=== PATIENT | female | born 1995 | race Caucasian/White ===

== ENCOUNTER 2022-11-30 07:52 | Outpatient (CLI) | payer OTHER, SELFPAY ==
[2022-11-30] MEDS: RHO(D) IMMUNE GLOBULIN 300 MCG/2 ML SYRINGE IM (17:32)
== END 2022-11-30 07:53 | disposition home or self-care (01) ==
LOC: ANHLAB 07:56
PROVIDERS: Visit Provider Obstetrics & Gynecology
DX: Z36.89 Encounter for other specified antenatal screening (principal); O36.0130 Maternal care for anti-D [Rh] antibodies, third trimester, not applicable or unspecified; Z3A.00 Weeks of gestation of pregnancy not specified
CPT/HCPCS: 36415; 85461; 86850; 86900; 86901; 90384; 96372; J2790

== ENCOUNTER 2023-01-19 10:06 | Outpatient (CLI) | payer OTHER, SELFPAY ==
[2023-01-19 10:46] VITALS: BP 144/85; PULSE 86
[2023-01-19 11:01] VITALS: BP 151/95; PULSE 94
[2023-01-19 11:07] LABS: Basophils Percent Auto 0.1 % (0.2-1.2); Eosinophils Absolute Auto 0.1 K/mm3 (0-0.3); Eosinophils Percent Auto 0.8 % (0-4.4); Hematocrit 31.8 % (37.0-47.0); Hemoglobin 10.5 g/dL (12.0-15.0); Immature Granulocyte Absolute 0.13 K/mm3 (0.00-0.031); Immature Granulocyte Percent A 0.9 % (0-0.5); Lymphocytes Absolute Auto 1.98 K/mm3 (0.9-3.2); Lymphocytes Percent Auto 14.2 % (18.3-44.2); Mean Corpuscular Hemoglobin 31.5 pg (26-34); Mean Corpuscular Volume 95.5 fl (80-100); Mean Platelet Volume 10.3 fl (7.4-10.4); Monocytes Absolute Auto 0.6 K/mm3 (0.1-0.6); Monocytes Percent Auto 4.3 % (2.6-8.5); Neutrophils Absolute Auto 11.1 K/mm3 (1.3-6.7); Neutrophils Percent Auto 79.7 % (45.5-73.1); Platelet Count Result 280 k/mm3 (150-375); Red Blood Count 3.33 M/mm3 (4.2-5.4); Red Cell Distribution Width 13.2 % (11.5-14.5); White Blood Count 13.9 K/mm3 (4.5-10.0)
[2023-01-19 11:09] VITALS: PULSE 84
[2023-01-19 11:16] VITALS: BP 130/64; PULSE 84
[2023-01-19 11:17] LABS: Creatinine Urine 129.6 mg/dL; Total Protein Urine Random 35 mg/dL; Ur Ttl Prot Creatinine Ratio 0.27 mg/mg (0-0.20)
[2023-01-19 11:23] LABS: Appearance Urine Cloudy (Clear); Bacteria Urine 4+ /hpf; Bilirubin Urine Negative (Negative); Blood Urine Negative (Negative); Color Urine Yellow (Yellow); Glucose Urine UA Negative (Negative); Ketones Urine Negative (Negative); Leukocyte Esterase Ur 3+ LEU/UL (NEGATIVE); Need Manual Microscopic Reviewed; Nitrate Urine Negative (Negative); Protein Urine 1+ mg/dL (Negative); RBC Urine 0-2 /hpf (0-2); Squamous Epithelial Cell Urine Moderate /hpf (Few); WBC Urine 51-100 /hpf (0-3)
[2023-01-19 11:25] LABS: Add Urine Microscopic? YES
[2023-01-19 11:28] LABS: Alanine Aminotransferase 28 U/L (6-35); Albumin Level 3.9 g/dL (3.5-5.1); Alkaline Phosphatase 180 U/L (38-126); Anion Gap 8 mmol/L (8-16); Aspartate Amino Transferase 24 U/L (14-36); Bilirubin,Total 0.4 mg/dL (0.2-1.3); Blood Urea Nitrogen 8 mg/dL (7-17); Calcium 9.3 mg/dL (8.4-10.2); Carbon Dioxide 20 mmol/L (22-30); Chloride 108 mmol/L (98-107); Estimated Glomerular Filt Rate > 60; Glucose 81 mg/dL (65-110); Sodium 136 mmol/L (137-145); Uric Acid 6.3 mg/dL (2.5-7.5)
[2023-01-19 11:31] VITALS: BP 127/75; PULSE 83
[2023-01-19 11:46] VITALS: BP 141/80; PULSE 83
== END 2023-01-19 12:12 | disposition home or self-care (01) ==
LOC: ANHOBOP 10:13 → ANHOBPP 10:16
PROVIDERS: Visit Provider Advanced Practice Midwife
DX: O13.9 Gestational [pregnancy-induced] hypertension without significant proteinuria, unspecified trimester (principal); Z3A.00 Weeks of gestation of pregnancy not specified
CPT/HCPCS: 36415; 59025; 80053; 81001; 82570; 84156; 84550; 85025; 87086; 99199

== ENCOUNTER 2023-01-22 12:54 | Outpatient (CLI) | payer OTHER, SELFPAY ==
[2023-01-22 13:20] VITALS: BP 144/92; PULSE 106
[2023-01-22 13:31] VITALS: BP 143/82; PULSE 96
[2023-01-22 13:47] VITALS: BP 130/87; PULSE 97
[2023-01-22 13:55] LABS: Basophils Percent Auto 0.1 % (0.2-1.2); Eosinophils Absolute Auto 0.1 K/mm3 (0-0.3); Eosinophils Percent Auto 0.7 % (0-4.4); Hematocrit 32.6 % (37.0-47.0); Hemoglobin 10.8 g/dL (12.0-15.0); Immature Granulocyte Absolute 0.18 K/mm3 (0.00-0.031); Immature Granulocyte Percent A 1.3 % (0-0.5); Lymphocytes Absolute Auto 1.82 K/mm3 (0.9-3.2); Lymphocytes Percent Auto 13.2 % (18.3-44.2); Mean Corpuscular HGB Conc 33.1 g/dl (32-36); Mean Corpuscular Hemoglobin 31.9 pg (26-34); Mean Corpuscular Volume 96.2 fl (80-100); Mean Platelet Volume 10.2 fl (7.4-10.4); Monocytes Absolute Auto 0.6 K/mm3 (0.1-0.6); Monocytes Percent Auto 4.4 % (2.6-8.5); Neutrophils Percent Auto 80.3 % (45.5-73.1); Nucleated Red Blood Cells Perc 0.1 % (0.0-0.2); Platelet Count Result 295 k/mm3 (150-375); Red Blood Count 3.39 M/mm3 (4.2-5.4); Red Cell Distribution Width 13.2 % (11.5-14.5); White Blood Count 13.8 K/mm3 (4.5-10.0)
[2023-01-22 14:01] VITALS: BP 113/69; PULSE 92
[2023-01-22 14:02] VITALS: BP 143/82; PULSE 96
[2023-01-22 14:06] LABS: Alanine Aminotransferase 27 U/L (6-35); Albumin Level 3.9 g/dL (3.5-5.1); Alkaline Phosphatase 176 U/L (38-126); Anion Gap 8 mmol/L (8-16); Aspartate Amino Transferase 26 U/L (14-36); Bilirubin,Total 0.4 mg/dL (0.2-1.3); Blood Urea Nitrogen 7 mg/dL (7-17); Calcium 9.3 mg/dL (8.4-10.2); Carbon Dioxide 20 mmol/L (22-30); Chloride 107 mmol/L (98-107); Estimated Glomerular Filt Rate > 60; Glucose 95 mg/dL (65-110); Potassium 3.8 mmol/L (3.4-5.0); Sodium 135 mmol/L (137-145); Uric Acid 6.3 mg/dL (2.5-7.5)
[2023-01-22 14:13] LABS: Appearance Urine Turbid (Clear); Bacteria Urine 4+ /hpf; Bilirubin Urine Negative (Negative); Blood Urine Negative (Negative); Color Urine Yellow (Yellow); Glucose Urine UA Negative (Negative); Ketones Urine Trace mg/dL (Negative); Leukocyte Esterase Ur 3+ LEU/UL (NEGATIVE); Need Manual Microscopic Reviewed; Nitrate Urine Negative (Negative); Protein Urine 2+ mg/dL (Negative); RBC Urine 0-2 /hpf (0-2); Specific Grav Ur 1.018 (1.001-1.035); Squamous Epithelial Cell Urine Many /hpf (Few); WBC Urine >100 /hpf (0-3); pH Urine 6.5 (5.0-9.0)
[2023-01-22 14:14] LABS: Add Urine Microscopic? YES
[2023-01-22 15:04] LABS: Creatinine Urine 175.9 mg/dL; Total Protein Urine Random 144 mg/dL; Ur Ttl Prot Creatinine Ratio 0.82 mg/mg (0-0.20)
== END 2023-01-22 15:05 | disposition home or self-care (01) ==
LOC: ANHOBOP 12:59 → ANHLDR 13:02
PROVIDERS: Advanced Practice Midwife; Visit Provider Obstetrics & Gynecology
DX: O13.9 Gestational [pregnancy-induced] hypertension without significant proteinuria, unspecified trimester (principal); Z3A.00 Weeks of gestation of pregnancy not specified
CPT/HCPCS: 36415; 59025; 80053; 81001; 82570; 84156; 84550; 85025; 87086; 87088; 99199

== ENCOUNTER 2023-01-24 05:32 | Inpatient (IN) | payer OTHER, SELFPAY ==
[2023-01-24] VITALS (47 sets, daily range): BP systolic 130–185; BP diastolic 74–106; PULSE 64–111; RESP 14–18; TEMP 36.6–37.1; O2SAT 94–100; BMI 45.2
--- NOTE | 2023-01-24 06:25 | LDADM ---
This patient, Eladia Grimaldo, was admitted to Labor/Delivery/Recovery 120 on 01/24/23 at 05:32. Plans for labor, pain management and were discussed with patient. Patient/family oriented to hospital policies and general routines including ID bracelet, bed and alarms, visiting hours, pain management, procedures, bathroom and other care routines, personal items, smoking policy, room service/diet and guest tray routines, security routines, and visiting hours. Patient/Family are encouraged to report perceived risks to care and to ask questions if they do not understand what they are told or what they should do. See OBIX for further documentation.
--- NOTE | 2023-01-24 06:42 | WPDANESEPPF ---
Anes - Initial Pre Proc Eval Procedure: Operation Date: 01/24/23 07:30 Proposed Procedures p Section - Viviane Gillis MD Date/Time: 01/24/23 06:42 Surgeon: Viviane Gillis MD Pre Op Diagnosis: Primary Patient Data Age: 27 Gender: F Height: 1.7 m Weight: 131 kg Last Vital Signs O2 Del Method Room Air 01/24/23 06:22 Allergies Allergy/AdvReac Type Severity Reaction Status Date / Time No Known Allergies Allergy Verified 01/19/23 11:47 Home Medications Medication Instructions Recorded Confirmed Type nifedipine 30 mg tablet,extended mg PO 01/19/23 History release 24 hr Patient hx anesthesia problems: none Family hx anesthesia problems: none Results Review: All pre-operative results and documents have been reviewed as part of the pre-operative evaluation. [facility] Past Medical History Medical History (Updated 01/24/23 @ 06:43 by Eugene Evans MD) HTN (hypertension) Morbid obesity Surgical History Surgical History (Updated 01/24/23 @ 06:43 by Eugene Evans MD) History of appendectomy Family History Family History Mother Hypertension Grandparent Diabetes mellitus Social History Social History Smoking status: Never smoker Substance use: never Lack of Transportation: No Lack of Food: Never True Current Housing: I Have Housing Concerned About Future Housing: No Difficulty Paying Gas/Electric Bills: No Difficulty Paying for Meds: No Currently Unemployed: No Education: Bachelor's Degree Difficulty w/ Childcare or Family Care: No Spiritual care concerns: No Anes - Eval Final PreProcedure Day of Procedure 01/24/23 06:42 Patient weight: morbidly obese Heart: regular rate and rhythm Lungs: clear to auscultation Airway: Mallampati scale class II Neurological: alert and oriented Last oral intake: >/= 8 hours ASA classification: III Emergent: no Anesthetic plan: proceed Anesthesia type and monitoring: regional spinal and standard monitoring Results Review: All pre-operative results and documents have been reviewed as part of the pre-operative evaluation. Informed Consent: The patient's anesthetic plan and its attendant risks and benefits were discussed with the patient/family/POA. Questions were solicited and answers provided to the satisfaction of the patient/family/POA.
[2023-01-24] MEDS: LACTATED RINGERS 1,000 ML 125 ML IV CONT ×2 (07:05→10:21)
--- NOTE | 2023-01-24 07:09 | PM.IMHP ---
H&P: HPI History of Present Illness Date/Time: 01/24/23 07:09 Chief Complaint: PreE, breech Narrative: Rachele is a 27yo G1 at 37.1 here for primary CS for breech, and PreEclampsia superimposed on chronic HTN. also complicated by morbid obesity, has had testing. 24 hour urine last week 315mg. Denies any PreE sx. On nifedipine throughout the . Review of Systems Review of Systems: All systems reviewed & are unremarkable except as noted in HPI and below [facility] Past Medical History Medical History (Updated 01/24/23 @ 07:14 by Viviane Gillis MD) HTN (hypertension) Morbid obesity Surgical History Surgical History (Updated 01/24/23 @ 06:43 by Eugene Evans MD) History of appendectomy Family History Family History Mother Hypertension Grandparent Diabetes mellitus Social History Social History Smoking status: Never smoker Substance use: never Lack of Transportation: No Lack of Food: Never True Current Housing: I Have Housing Concerned About Future Housing: No Difficulty Paying Gas/Electric Bills: No Difficulty Paying for Meds: No Currently Unemployed: No Education: Bachelor's Degree Difficulty w/ Childcare or Family Care: No Spiritual care concerns: No Meds Home Medications and Allergies Home Medications Medication Instructions Recorded Confirmed Type nifedipine 30 mg tablet,extended mg PO 01/19/23 History release 24 hr Allergies Allergy/AdvReac Type Severity Reaction Status Date / Time No Known Allergies Allergy Verified 01/19/23 11:47 Vital Signs Vital Signs - 24 hr 01/24/23 06:22 Oxygen Delivery Room Air Exam Const: General: no acute distress Resp: Effort & Inspection: normal respiratory effort Auscultation: clear to auscultation bilaterally Cardio: Rate: regular rate Rhythm: regular rhythm GI: GI Palp: Yes Soft to palpation Extrem: General: normal to inspection Assessment and Plan Assessment and plan (1) Pre-eclampsia superimposed on chronic hypertension: Code(s): O11.9 - Pre-existing hypertension with pre-eclampsia, unspecified trimester Status: Acute (2) Breech presentation: Code(s): O32.1XX0 - Maternal care for breech presentation, not applicable or unspecified Status: Acute Plan GBS pending mild PreE superimposed on cHTN continue nifedipine mag if severe features will proceed with CS for breech pt consented for CS, discussed RBA
--- NOTE | 2023-01-24 07:15 | WPDHPUPDATE1 ---
History and Physical Update Update Date/Time: 01/24/23 07:15 History and Physical has been reviewed, including an updated exam of the patient. There are NO changes in the patient's condition. Risks, benefits, and alternatives have been discussed and questions answered. Patient agrees to proceed with procedure.
[2023-01-24 07:17] LABS: Alanine Aminotransferase 22 U/L (6-35); Albumin Level 3.3 g/dL (3.5-5.1); Alkaline Phosphatase 144 U/L (38-126); Anion Gap 6 mmol/L (8-16); Aspartate Amino Transferase 27 U/L (14-36); Bilirubin,Total 0.5 mg/dL (0.2-1.3); Blood Urea Nitrogen 8 mg/dL (7-17); Calcium 7.9 mg/dL (8.4-10.2); Carbon Dioxide 17 mmol/L (22-30); Chloride 114 mmol/L (98-107); Estimated CRCL calculation 311 ml/min; Estimated Glomerular Filt Rate > 60; Glucose 75 mg/dL (65-110); Potassium 3.4 mmol/L (3.4-5.0); Sodium 137 mmol/L (137-145)
--- NOTE | 2023-01-24 07:21 | PC.NURSE ---
provider scanned patient breech presentation noted.,
[2023-01-24 07:56] LABS: HIV 1/2 Ab P24 Ag Result Negative (Negative)
--- NOTE | 2023-01-24 09:25 | P.PCNOB_ITS ---
OB - Delivery Note Procedure Delivery date: 01/24/23 Procedure: Procedures Operation Date: 01/24/23 07:30 <No data on this case meets the specified criteria> primary low transverse section Events: Breech Presentation, Chronic Hypertension and Preeclampsia w/o severe features Route of delivery: Specimen: Yes (placenta) Quantitative Blood Loss (ml): 1,085 Anesthesia type: CSE Disposition: Floor Complications: hemorrhage due to atony, difficult spinal placement Narrative: The patient was taken to the OR and had a CSE placed after spinal placement failed. She was placed in dorsal supine position with left lateral tilt. SCDs and link had been placed. She was prepped and draped in the normal sterile fashion. A Pfannensteil skin incision was made and carried through to the underlying layer of fascia. The fascia was incised in the midline and then extended laterally using Emerson scissors. The muscles were in the midline and the peritoneum was entered bluntly. The peritoneal incision was extended inferiorly and superiorly with care to avoid the bladder. The bladder blade was then inserted, the vesicouterine peritoneum was grasped, incised with Metzenbaum scissors, and a bladder flap created. The bladder blade was reinserted. A low transverse uterine incision was made with a scalpel and extended bluntly. AROM was performed and fluid was noted to be clear. The baby was delivered in breech presentation in normal fashion without complication. The baby's oropharynx was suctioned. After 30 seconds, the cord was clamped and cut and the was handed off. Cord blood was obtained and the placenta was then removed manually. The uterus was exteriorized. A moist lap sponge was used to curette the endometrium. The uterine incision was then closed with one layer of 0-Vicryl in a running, locking fashion. Uterine tone was very poor for about 5 minutes and pitocin, hemabate, and tranexamic acid were given. Good hemostasis was noted at the incision and the atony resolved. The posterior cul de sac was irrigated with normal saline and cleared of all clot and debris. The uterus was returned to the abdomen. Both lateral gutters were then irrigated. The rectus muscles were inspected and found to be hemostatic. The fascia was reapproximated using 0-Vicryl in running fashion. The subcutaneous tissue was irrigated with normal saline and made hemostatic with Bovie electrocautery. The subcutaneous tissue was reapproximated with a layer of running 2-0 plain gut. The skin was then closed with absorbable zackery. Steri strips and a bandage were applied. The uterus was evacuated. The patient tolerated the procedure well. All counts were correct. She was taken to the recovery room in good condition. [place] Baby Date of : 01/24/23 Time of : 08:38 Weeks of gestation at delivery: 37 Infant gender: Female Weight (pounds): 7 Weight (ounces): 8 presentation: breech Placenta delivery description: Manual Removal Cord Vessel Description: 3 Vessels and Delayed Cord Clamping score one minute: 9 score five minutes: 9
[2023-01-24] MEDS: ceFAZolin 3 GM/D5W 100 ML 100 ML IVPB (10:19)
--- NOTE | 2023-01-24 10:51 | PC.NURSE ---
FHT in OR were 130
[2023-01-24 11:20] LABS: Hemoglobin 10.5 g/dL (12.0-15.0)
--- NOTE | 2023-01-24 11:30 | OBPPTRN ---
Addendum entered by Martin Williamson RN 01/24/23 14:58: actual time of arrival on unit is 1145 Original Note: Patient transferred to post room # [id number] via stretcher accompanied by fob and . PT transferred to bed via maxi air without difficulty. PT introductions made and plan of care discussed per post op c section, pain management, breast feeding, daily care activities. PT received such instructions per one to one discussion, mom baby care guide and demonstrations this shift. PT and fob both recipients of such instructions and no barriers to learning identified at this time. Oriented to unit, room, information board, rooming in, admission packet and security measures. Patient verbalizes understanding.
--- NOTE | 2023-01-24 14:57 | PC.NURSE ---
[id number] Introductions were made, then consulted with patient to assess needs related to . Mother led the conversation with her?plans to feed?her infant and the?experience so far. Resources provided for inpatient and outpatient services with the feeding sheet, mom/baby guide and name written on the white board. Mother voiced understanding of information and parents request assistance. Mother works well with her with encouragement and education. Encouraged understanding of the benefits of skin to skin (demonstrating unwrapping and placing upright on her chest), stimulating with massage touch, changing positions to encourage wakefulness, how to watch for early feeding cues, responsive feeding, feeding on demand (aiming for 8-12 times in 24 hours, about every 2-3 hours), milk production,hand expression (did not yield colostrum at this time) building/maintaining a milk supply (discussed QBL & primary C/S possibly delaying milk supply), duration of feeding, signs of adequate intake/output and how to record on the feeding sheet. Practiced skin to skin until demonstrated feeding cues. Reviewed positioning and ear, shoulder, hip alignment, supporting the breast to facilitate a deep latch, asymmetrical latch (off-center), leading with the chin with a big, open, wide gape and body close to mother. attempted to latched optimally to the right breast in football laid-back position. opens wide but doesn't maintain. Assisted mother with an appropriate hold to support her breast that did not make the nipple invert. There is swelling in the breast as well. was unable to maintain latch. Discussed protecting mother milk supply with hand expression and pumping. Nipple care reviewed with optimal latch and good positioning. Discussed late of 37 weeks and feeding behaviors of a weak suck to maintain latch. We discussed pumping and/or possibly using a nipple shield. Reviewed good handwashing when or touching the breast/nipples to prevent infection. Resources used to facilitate learning were used with the visual handouts, tool, mom and baby guide. Parents voiced understanding of skin to skin, stimulating with massage touch, responsive feedings, hand expressed colostrum, talking to to encourage if it has been 2 -2.5 hours since the start of the last , to call if does not latch, or if there is discomfort with . Resources provided for inpatient/outpatient with feeding sheet, name on the white board and the mom/baby guide. Parents voiced understanding of information, demonstrated learning and will call if there is a request for assistance. Mother consented to initiating pumping. Reported to the primary RN. [phone] Breast pump provided due to ineffective . Instructions given on cleaning, care, usage, that there should be no pain, pumping schedule for milk production, collection, and storage of human milk. Parents are encouraged to record pumping schedule on the feeding sheet. Patient was assessed for correct placement, flange size, to pump for comfort and nipple stretching/stimulation for adequate milk production every 3 hours (8 times in 24 hours) 1-2 times at night. Parents voiced understanding of the education shared along with mom and baby guide for additional resource information. Reported to the primary RN.
[2023-01-24] MEDS: IBUPROFEN 600 MG TABLET PO ×2 (16:42→22:47)
[2023-01-24] MEDS: SIMETHICONE 80 MG TAB.CHEW PO (16:43)
[2023-01-24] MEDS: HYDROcodone/acetaminophen (*CRX) 5-325 MG TABLET 1 TAB PO ×3 (16:43→22:46)
[2023-01-24] MEDS: DOCUSATE SODIUM 100 MG CAPSULE PO (16:44)
[2023-01-24] MEDS: LANOLIN (LANSINOH) 7.5 GM CREAM 1 APPLIC TOPICAL (16:45)
[2023-01-24] MEDS: DEXTROSE 5%/0.45% SOD CHL 1,000 ML 125 ML IV CONT (17:00)
[2023-01-24] MEDS: IRON SUCROSE COMPLEX 200 MG in SODIUM CHLORIDE 0.9% IV 50 ML 120 MG IVPB (18:40)
[2023-01-24] MEDS: NIFEdipine 30 MG TAB.ER.24 PO (20:50)
[2023-01-24] MEDS: LABETALOL HCL INJ 100 MG/20 ML VIAL 20 MG IV PUSH (20:50)
[2023-01-25] VITALS (9 sets, daily range): BP systolic 119–197; BP diastolic 69–98; PULSE 88–109; RESP 16–20; TEMP 36.4–36.8; O2SAT 97–99
[2023-01-25] MEDS: HYDROcodone/acetaminophen (*CRX) 5-325 MG TABLET 1 TAB PO ×4 (04:11→20:16)
[2023-01-25] MEDS: IBUPROFEN 600 MG TABLET PO ×3 (04:25→20:16)
[2023-01-25] MEDS: LABETALOL HCL INJ 100 MG/20 ML VIAL 20 MG IV PUSH (04:56)
[2023-01-25] MEDS: LACTATED RINGERS 1,000 ML 75 ML IV CONT (05:00)
[2023-01-25] MEDS: MAGNESIUM SULF 4 GM/WATER100ML 4 GM/100 ML BAG IVPB (05:03)
[2023-01-25] MEDS: MAGNESIUM SULF 20GM/WATER500ML 500 ML 50 MG IV CONT ×2 (05:33→14:15)
[2023-01-25 05:42] LABS: Basophils Percent Auto 0.1 % (0.2-1.2); Eosinophils Absolute Auto 0.1 K/mm3 (0-0.3); Eosinophils Percent Auto 0.7 % (0-4.4); Hematocrit 27.2 % (37.0-47.0); Hemoglobin 8.7 g/dL (12.0-15.0); Immature Granulocyte Absolute 0.12 K/mm3 (0.00-0.031); Immature Granulocyte Percent A 0.8 % (0-0.5); Lymphocytes Absolute Auto 2.28 K/mm3 (0.9-3.2); Lymphocytes Percent Auto 15.4 % (18.3-44.2); Mean Corpuscular Hemoglobin 31.6 pg (26-34); Mean Corpuscular Volume 98.9 fl (80-100); Mean Platelet Volume 10.6 fl (7.4-10.4); Monocytes Absolute Auto 0.8 K/mm3 (0.1-0.6); Monocytes Percent Auto 5.1 % (2.6-8.5); Neutrophils Absolute Auto 11.6 K/mm3 (1.3-6.7); Neutrophils Percent Auto 77.9 % (45.5-73.1); Platelet Count Result 249 k/mm3 (150-375); Red Blood Count 2.75 M/mm3 (4.2-5.4); Red Cell Distribution Width 13.2 % (11.5-14.5); White Blood Count 14.8 K/mm3 (4.5-10.0)
[2023-01-25] MEDS: MULTIVIT/MIN/PREN/FOL AC/IRON TABLET 1 TAB PO (07:56)
[2023-01-25] MEDS: SIMETHICONE 80 MG TAB.CHEW PO ×3 (07:56→20:23)
[2023-01-25] MEDS: DOCUSATE SODIUM 100 MG CAPSULE PO ×2 (07:56→20:19)
--- NOTE | 2023-01-25 08:00 | PC.NURSE ---
PT introductions made and plan of care discussed per post op c section, pain management, breast feeding, daily care activities PIH symptoms and Magnesium drip. PT received such instructions per one to one discussion, mom baby care guide and demonstrations this shift. PT and fob both recipients of such instructions and no barriers to learning identified at this time. Patient verbalizes understanding.
--- NOTE | 2023-01-25 08:13 | PM.OBPNVD ---
OB - PN: Subj Subjective Date/time seen: 01/25/23 08:13No complaints, denies headache, blurry vision, epigastric pain, no vaginal bleeding, has not walked yet, does not report dizziness or shortness of breath. OB - PN: Obj Data Labs 01/25/23 04:15 01/24/23 06:35 Labs: Laboratory Results - last 24 hr 01/24/23 01/24/23 01/25/23 10:58 10:58 04:15 WBC RBC Hgb 10.5 L Hct 32.0 L MCV MCH MCHC RDW Plt Count MPV Immature Gran % (Auto) Neut % (Auto) Lymph % (Auto) [place] % (Auto) Eos % (Auto) Baso % (Auto) Lymph # (Auto) [place] # (Auto) Eos # (Auto) Baso # (Auto) Abs Immat Gran (auto) Absolute Neuts (auto) Absolute Nucleated RBC Nucleated RBC % Blood Type A Negative A Negative Antibody Screen Negative Negative Screen Negative Baby's Blood Type A pos Baby's BUBBA Negative Doses of RhIg Required 1 01/25/23 04:15 WBC 14.8 H RBC 2.75 L Hgb 8.7 L Hct 27.2 L MCV 98.9 MCH 31.6 MCHC 32.0 RDW 13.2 Plt Count 249 MPV 10.6 H Immature Gran % (Auto) 0.8 H Neut % (Auto) 77.9 H Lymph % (Auto) 15.4 L [place] % (Auto) 5.1 Eos % (Auto) 0.7 Baso % (Auto) 0.1 L Lymph # (Auto) 2.28 [place] # (Auto) 0.8 H Eos # (Auto) 0.1 Baso # (Auto) 0.0 Abs Immat Gran (auto) 0.12 H Absolute Neuts (auto) 11.6 H Absolute Nucleated RBC 0.0 Nucleated RBC % 0.0 Blood Type Antibody Screen Screen Baby's Blood Type Baby's BUBBA Doses of RhIg Required OB - PN A/P Assessment and Plan (1) Pre-eclampsia superimposed on chronic hypertension: Code(s): O11.9 - Pre-existing hypertension with pre-eclampsia, unspecified trimester Status: Acute (2) Breech presentation: Code(s): O32.1XX0 - Maternal care for breech presentation, not applicable or unspecified Status: Acute (3) delivery delivered: Code(s): O82 - Encounter for delivery without indication Status: Acute Plan 27-year-old female who is postop day 1 from a delivery for breech. She had preeclampsia. It was worsening last night. Magnesium sulfate was started, blood pressures have improved on magnesium sulfate and Procardia. Will check CMP this morning, the baby is well. Bleeding is minimal, has not ambulated. No resting dizziness or shortness of breath there Time Spent With Patient Time: Total time spent is greater than 50% in coordination of care (as documented) at patient's floor/unit and/or counseling patient: Exam Const: General: healthy appearing, comfortable and no acute distress Resp: Auscultation: clear to auscultation bilaterally, no rales, no rhonchi and no wheezes Cardio: Rate: regular rate Heart sounds: no click, no murmurs and no rubs GI: Inspection: non-distended Auscultation: normal bowel sounds Extrem: General: normal to inspection, no pedal edema and no calf tenderness
--- NOTE | 2023-01-25 08:16 | WPDANLDPN2 ---
Anes-Prog Note L&D Date/Time: 01/25/23 08:16 Comfortable throughout: section Neuraxial method: spinal Epidural/Spinal procedure site: clean & non-tender Neuro status: Neuro function grossly intact. Cardiovascular status: normal Respiratory status: normal Airway patency: baseline Mental status: baseline Post-Op hydration status: normal Vital Signs: Last Vital Signs Temp 36.8 C 01/25/23 04:15 Pulse 88 01/25/23 05:06 Resp 20 01/25/23 04:15 BP 119/69 01/25/23 05:06 Pulse Ox 100 01/24/23 16:43 O2 Del Method Room Air 01/24/23 16:43 Pain score (VAS): 1 I/O: Intake & Output 01/24/23 01/25/23 01/25/23 23:59 07:59 15:59 Intake Total 1100 2100 Output Total 1500 1000 Balance -400 1100 Post-procedural complaints: none Patient feedback: Patient satisfied with anesthetic care.
--- NOTE | 2023-01-25 08:16 | WPDANLDNPN2 ---
Anes-Prog Note L&D-Neuraxial Date/Time: 01/25/23 08:16 Neuraxial medications: intrathecal PF morphine Opiod-related complaints: none Patient feedback: Patient satisfied with post-operative pain management.
[2023-01-25] MEDS: POLYSACCHARIDE IRON COMPLEX 150 MG CAPSULE (09:29)
[2023-01-25] MEDS: NIFEdipine 30 MG TAB.ER.24 PO ×2 (09:30→20:16)
[2023-01-25 10:10] LABS: Alanine Aminotransferase 22 U/L (6-35); Albumin Level 3.3 g/dL (3.5-5.1); Alkaline Phosphatase 143 U/L (38-126); Anion Gap 8 mmol/L (8-16); Aspartate Amino Transferase 25 U/L (14-36); Bilirubin,Total 0.3 mg/dL (0.2-1.3); Blood Urea Nitrogen 5 mg/dL (7-17); Calcium 8.3 mg/dL (8.4-10.2); Carbon Dioxide 21 mmol/L (22-30); Chloride 107 mmol/L (98-107); Estimated CRCL calculation 201 ml/min; Estimated Glomerular Filt Rate > 60; Glucose 121 mg/dL (65-110); Potassium 4.1 mmol/L (3.4-5.0); Sodium 136 mmol/L (137-145)
[2023-01-25] MEDS: RHO(D) IMMUNE GLOBULIN 300 MCG/2 ML SYRINGE IM (15:00)
--- NOTE | 2023-01-25 16:09 | PC.NURSE ---
[id number] Purposefully rounded to assess needs. Parents discussed how their night had gone and the new feeding plan. They are confident with their plan and questions were discussed and answered. Mother is attempting to breastfeed and father of baby states that the infant is doing better today than yesterday. We reviewed paced bottle feeding and protecting the milk supply with stimulation 8-12 times in 24 hours with 1-2 times at night. Parents voiced understanding and acknowledges how and when to call for assistance.
[2023-01-26] VITALS (7 sets, daily range): BP systolic 125–160; BP diastolic 74–93; PULSE 98–109; RESP 16–18; TEMP 36.6–36.8; O2SAT 98–100
[2023-01-26] MEDS: HYDROcodone/acetaminophen (*CRX) 5-325 MG TABLET 1 TAB PO ×3 (04:21→13:00)
[2023-01-26] MEDS: SIMETHICONE 80 MG TAB.CHEW PO ×4 (04:21→18:00)
[2023-01-26] MEDS: IBUPROFEN 600 MG TABLET PO ×3 (04:21→22:56)
--- NOTE | 2023-01-26 08:14 | PM.OBPNVD ---
OB - PN: Subj Subjective Date/time seen: 01/26/23 08:14 Patient comments: no complaints and pain well controlled feeding status: breast and bottle feeding OB - PN: Obj Data Labs 01/25/23 04:15 01/25/23 09:42 Labs: Laboratory Results - last 24 hr 01/25/23 01/25/23 04:15 09:42 Sodium 136 L Potassium 4.1 Chloride 107 Carbon Dioxide 21 L Anion Gap 8 BUN 5 L Creatinine 0.50 L Estim Creat Clear Calc 201 Estimated GFR > 60 Glucose 121 H Calcium 8.3 L Total Bilirubin 0.3 AST 25 ALT 22 Alkaline Phosphatase 143 H Total Protein 7.0 Albumin 3.3 L Blood Type A Negative Antibody Screen Negative Screen Negative Baby's Blood Type A pos Baby's BUBBA Negative Doses of RhIg Required 1 OB - PN A/P Plan day: 2 Comments: s/p mag, BPs improved and great diuresis anemia, getting venofer bandage removed and incision cdi likely stay til POD 4 Time Spent With Patient Time: Total time spent is greater than 50% in coordination of care (as documented) at patient's floor/unit and/or counseling patient: Exam Narrative: NAD abdomen soft, appropriately tender, incision CDI Extremities nontender with 1+ edema
[2023-01-26] MEDS: MULTIVIT/MIN/PREN/FOL AC/IRON TABLET 1 TAB PO (08:53)
[2023-01-26] MEDS: DOCUSATE SODIUM 100 MG CAPSULE PO ×2 (08:53→17:59)
[2023-01-26] MEDS: NIFEdipine 30 MG TAB.ER.24 PO ×2 (08:54→21:02)
[2023-01-26] MEDS: IRON SUCROSE COMPLEX 200 MG in SODIUM CHLORIDE 0.9% IV 50 ML 120 MG IVPB (09:27)
[2023-01-27 05:18] VITALS: BP 144/91
[2023-01-27] MEDS: MULTIVIT/MIN/PREN/FOL AC/IRON TABLET 1 TAB PO (07:39)
[2023-01-27 07:40] VITALS: BP 138/74; PULSE 96; RESP 18; TEMP 37.2; O2SAT 99
[2023-01-27] MEDS: DOCUSATE SODIUM 100 MG CAPSULE PO (07:40)
[2023-01-27] MEDS: IBUPROFEN 600 MG TABLET PO (07:40)
[2023-01-27] MEDS: NIFEdipine 30 MG TAB.ER.24 PO (08:59)
--- NOTE | 2023-01-27 10:22 | PM.OBPNVD ---
OB - PN: Subj Subjective Date/time seen: 01/27/23 10:22 Patient comments: no complaints, pain well controlled, incisional pain, tolerating diet and flatus present OB - PN: Obj Data Labs 01/25/23 04:15 01/25/23 09:42 Labs: Laboratory Results - last 24 hr 01/25/23 04:15 Blood Type A Negative Antibody Screen Negative Screen Negative Baby's Blood Type A pos Baby's BUBBA Negative Doses of RhIg Required 1 OB - PN A/P Plan day: 3 Plan: routine care, discharge home and other Comments: Incision check in one week. Given precautions Time Spent With Patient Time: Total time spent is greater than 50% in coordination of care (as documented) at patient's floor/unit and/or counseling patient: Exam Const: General: comfortable, no acute distress and alert Resp: Effort & Inspection: normal respiratory effort Auscultation: no crackles, no rales and no rhonchi Cardio: Rate: regular rate Heart sounds: no click, no murmurs and no rubs GI: Inspection: non-distended GI Palp: No Tenderness to palpation present (GI) Auscultation: normal bowel sounds Other: Incision - CDI Extrem: General: normal to inspection, no pedal edema and no calf tenderness
--- NOTE | 2023-01-27 10:23 | PM.OBDSVD ---
DS: Admitting Diagnosis Discharge Date 01/27/2023 Admitting Diagnosis term DS: Discharge Diagnosis Discharge Diagnosis (1) delivery delivered: Code(s): O82 - Encounter for delivery without indication Status: Acute (2) Pre-eclampsia superimposed on chronic hypertension: Code(s): O11.9 - Pre-existing hypertension with pre-eclampsia, unspecified trimester Status: Acute OB - DS: Summary OB Procedures : None OB Procedures Intrapartum: OB Procedures: : None Peripartum Data Procedures: Procedures Operation Date: 01/24/23 07:30 Actual Procedure Side Surgeon p Section Bilateral Viviane Gillis MD Time Spent with Patient Time attestation: Total time spent providing and/or coordinating discharge services: DS: Data Data Completed and Pending Completed studies during hospitalization: Pending at discharge 01/24/23 10:17 Surgical [PTH] Routine Labs on day of discharge: Labs from last 24 hours 01/25/23 04:15 Blood Type A Negative Antibody Screen Negative Screen Negative Baby's Blood Type A pos Baby's BUBBA Negative Doses of RhIg Required 1 Discharge Plan Discharge Discharging Clinician: Karin Hatch Patient Disposition: Home, Self-Care Activity: pelvic rest Diet: regular Patient Instructions: Antibiotic Form Stand Alone Forms: General Discharge Information Follow-up/Referrals: Karin Hatch MD [Physician] - Discharge Medications: New hydrocodone-acetaminophen 5-325 mg tablet 1 tablet PO Q4H PRN (Reason: pain) Qty: 25 0RF Continued nifedipine 30 mg tablet extended release 24hr PO Date of admission: 01/24/23 05:32 Primary Care Provider: UNKNOWN,DOCTOR Admitting Provider: Viviane Gillis Attending physician on admission: Viviane Gillis Condition: Stable
[2023-01-29 10:38] VITALS: BP 144/82; PULSE 103; RESP 20; TEMP 36.8; O2SAT 100
== END 2023-01-27 15:07 | disposition home or self-care (01) | DRG 788 ==
LOC: ANHLDR 05:43 → ANHOB2 01-25 11:36 → ANHLDR 01-29 10:57 → ANHOB2 01-29 10:57
PROVIDERS: Admitting Provider Obstetrics & Gynecology; Visit Provider Obstetrics & Gynecology
PROC: 10D00Z1 Extraction of Products of Conception, Low, Open Approach (ICD-10-PCS; CPT 59514; principal; 2023-01-24 07:30)
DX: O11.4 Pre-existing hypertension with pre-eclampsia, complicating childbirth (principal); Z37.0 Single live birth; Z3A.37 37 weeks gestation of pregnancy; O32.1XX0 Maternal care for breech presentation, not applicable or unspecified; O72.1 Other immediate postpartum hemorrhage
CPT/HCPCS: 36415; 80053; 85014; 85018; 85025; 85461; 86703; 86850; 86900; 86901; 88307; 90384; A9270; G0432; J0131; J0690; J1756; J2274; J2370; J2405; J2590; J2704; J2790; J3475; J7120

== ENCOUNTER 2023-08-14 07:48 | Outpatient (CLI) | payer OTHER, SELFPAY ==
[2023-08-14 08:19] LABS: Basophils Percent Auto 0.2 % (0.2-1.2); Eosinophils Absolute Auto 0.3 K/mm3 (0-0.3); Eosinophils Percent Auto 2.3 % (0-4.4); Hemoglobin 12.2 g/dL (12.0-15.0); Immature Granulocyte Absolute 0.06 K/mm3 (0.00-0.031); Immature Granulocyte Percent A 0.5 % (0-0.5); Lymphocytes Percent Auto 16.8 % (18.3-44.2); Mean Corpuscular HGB Conc 31.3 g/dl (32-36); Mean Corpuscular Hemoglobin 29.3 pg (26-34); Mean Corpuscular Volume 93.8 fl (80-100); Mean Platelet Volume 9.2 fl (7.4-10.4); Monocytes Absolute Auto 0.4 K/mm3 (0.1-0.6); Monocytes Percent Auto 3.4 % (2.6-8.5); Neutrophils Absolute Auto 8.7 K/mm3 (1.3-6.7); Neutrophils Percent Auto 76.8 % (45.5-73.1); Platelet Count Result 347 k/mm3 (150-375); Red Blood Count 4.16 M/mm3 (4.2-5.4); White Blood Count 11.3 K/mm3 (4.5-10.0)
== END 2023-08-14 07:49 | disposition home or self-care (01) ==
LOC: ANHLAB 07:50
PROVIDERS: Visit Provider Internal Medicine
DX: D72.829 Elevated white blood cell count, unspecified (principal)
CPT/HCPCS: 36415; 85025

== ENCOUNTER 2025-08-12 18:51 | Observation (INO) | payer OTHER, SELFPAY ==
--- NOTE | ~2025-08-12 | CT_ITS ---
CT ABDOMEN AND PELVIS WITHOUT CONTRAST Clinical History: Right ureteral stone Comparison: CT 2 days prior Technique: Unenhanced axial images lung bases to symphysis pubis Coronal, sagittal reformats CT images acquired with automatic exposure control for dose reduction DLP: 614 mGy-cm Findings: Without intravenous contrast, sensitivity for detecting visceral parenchymal abnormalities decreased. Lung bases: Clear. Visualized heart and pericardium: Unremarkable. Liver: Unremarkable. Gallbladder: Stones. Spleen: Unremarkable. Pancreas: Unremarkable. Adrenal glands: Unremarkable. Kidneys: Right kidney- improving hydronephrosis. Perinephric stranding. No renal stones. Left kidney- No hydronephrosis. No renal stones. Distal esophagus/stomach: Unremarkable. Small bowel loops: Normal caliber and wall thickness. Colon: Normal caliber and wall thickness. Appendectomy. Nodes: No enlarged nodes. Small inguinal nodes. Peritoneum: No ascites. No free intraperitoneal air. Urinary bladder: Unremarkable. Right UVJ stone no longer present Uterus: Unremarkable. Adnexa: No masses. Bones: No acute bony abnormality. Soft tissues: Unremarkable. Unopacified abdominal aorta: No aneurysmal dilatation. IMPRESSION: 1. Small right UVJ stone no longer present. 2. Mild persistent hydronephrosis right kidney. 3. No other acute abnormality. Reviewed, dictated and finalized at location R.
--- NOTE | ~2025-08-12 | CT_ITS ---
CT abdomen pelvis wo con INDICATION:right flank pain, suspect stone . COMPARISON: None. TECHNIQUE: Axial 2.5 mm images of the abdomen were obtained without IV or oral contrast. Diagnostic sensitivity is limited due to lack of IV contrast. FINDINGS: The lung bases are clear. The liver parenchyma is unremarkable. No intrahepatic mass or ductal dilatation is evident. Multiple gallstones are noted. Follow-up ultrasound is recommended. The pancreas and spleen are normal in appearance. The adrenal glands are symmetric in size. There is mild right hydronephrosis secondary to a punctate stone at the ureterovesicular junction. No intrarenal stones are noted. Left kidneys unremarkable. Evaluation of the stomach and bowel loops are limited due to lack of oral contrast. The bladder and rectum are normal. No free intraperitoneal fluid or air is evident. Enlarged left inguinal lymph node measures up to 16.9 mm. Multiple small retroperitoneal lymph nodes are noted bilaterally measuring less than 5 mm. The aorta, visceral vessels and renal arteries demonstrate normal caliber. The lower thoracic and lumbar vertebrae are in normal alignment. IMPRESSION: Multiple gallstones are noted. Follow-up ultrasound is recommended. Enlarged left inguinal lymph node measures up to 16.9 mm. There is mild right hydronephrosis secondary to a punctate stone at the UVJ. All CT scans at this facility are performed using low dose modulation techniques as appropriate to perform exam including the following: automated exposure control; use of iterative reconstruction technique; adjustment of the mA and/or kV according to patient size (this includes techniques or standardized protocols for targeted exams where dose is matched to indication/reason for exam). Reviewed, dictated and finalized at location S. IMPRESSION: Multiple gallstones are noted. Follow-up ultrasound is recommended. Enlarged left inguinal lymph node measures up to 16.9 mm. There is mild right hydronephrosis secondary to a punctate stone at the UVJ. All CT scans at this facility are performed using low dose modulation techniqu es as appropriate to perform exam including the following: automated exposure c ontrol; use of iterative reconstruction technique; adjustment of the mA and/or kV according to patient size (this includes techniques or standardized protocol s for targeted exams where dose is matched to indication/reason for exam).
--- OUTSIDE RECORDS SUMMARY | 2025-08-12 10:18 | XMS_ITS | Encounter Summary ---
Author Organization [facility] Health Address [address] [place] [address] Care Team Providers Care Power Superintendent Name Role Phone Esdras Herbert MD Primary Care Provider [phone] Encounter Details Date Type Department Care Team (Late st Contact Info) Description 08/12/2025 10:18 AM CDT Hospital Encounter [facility] [address] [place] [address] [facility]len Hancock, [facility] [address] [place] [id number] Social History Tobacco Use Types Packs/Day Years Used Date Smoking Tobacco: Never Smokeless Tobacco: Never Tobacco Cessation:Counseling Given: Not Answered PHQ-2 Answer Date Recorded Patient Health Questionnaire-2 Score 0 08/12/2025 Comments No Sex and Gender Information Value Date Recorded Sex Assigned at Not on file Legal Sex Female 6:49 AM CDT Gender Identity Not on file Sexual Orientation Not on file documented as of this encounter Last Filed Vital Signs Vital Sign Reading Time Taken Comments Blood Pressure 134/72 08/12/2025 10:21 AM CDT Pulse 70 08/12/2025 10:21 AM CDT Temperature 36.6 C (97.9 F) 08/12/2025 10:21 AM CDT Respiratory Rate 18 08/12/2025 10:21 AM CDT Oxygen Saturation 100% 08/12/2025 10:21 AM CDT Inhaled Oxygen Concentration - - Weight 99.8 kg (220 lb) 08/12/2025 10:21 AM CDT Height 170.2 cm (5' 7) 08/12/2025 10:21 AM CDT Body Mass Index 34.46 08/12/2025 10:21 AM CDT documented in this encounter Functional Status * Over the past 2 weeks, how often have you been bothered by any of the following problems? Question Answer Date of Assessment Author Little interest or pleasure in doing things Not at all 08/12/2025 10:23 AM CDT Rosita Hamlin RN Feeling down, depressed, or hopeless Not at all 08/12/2025 10:23 AM CDT Rosita Hamlin RN Patient Health Questionnaire -2 Score 0 08/12/2025 10:23 AM CDT Rosita Hamlin RN documented as of this encounter Discharge Instructions * Patient Instructions* Jaylen Hancock APRN-CNP - 08/12/2025 10:51 AM CDT Please strain your urine for the next several days. If you collect a stone please give it to your primary care doctor for analysis. Increase fluid intake and use NSAIDs as needed for pain control. We will culture your urine specimen and treat if indicated. If your symptoms change or worsen please seek a higher level of care. documented in this encounter Progress Notes * Rosita Hamlin RN - 08/12/2025 10:24 AM CDT Pt to UC with c/o R. Sided flank pain starting at 0800 this AM. Pain is sharp and currently 3/10. No burning with urination. Endorses frequency. Endorses some nausea, no vomiting. Endorses diaphoresis, afebrile. OTC meds: tylenol Standing Order for Urinalysis Dysuria: NO Urinary Urgency: YES Urinary Frequency: YES Hematuria: NO Urinary Incontinence: NO Flank pain: YES Suprapubic pain: NO If yes any of the above, patient meets criteria. [facility] Standing Order criteria has been met for urinalysis testing and appropriate testing has been ordered and collected. documented in this encounter Plan of Treatment Pending Results Name Type Priority Associated Diagnoses Date /Time CULTURE URINE Microbiology Routine Right flank pain 08/12/2025 10:36 AM CDT Scheduled Orders Name Type Priority Associated Diagnoses Orde r Schedule CULTURE URINE Microbiology Routine Right flank pain ONCE for 1 Occurrences starting 08/12/2025 until 08/12/2025 documented as of this encounter Procedures Procedure Name Priority Date/Time Associated Diagnosis Comments URINALYSIS - POCT (IP) URGENT CARE Routine 08/12/2025 10:33 AM CDT Right flank pain documented in this encounter Results * (ABNORMAL) URINALYSIS - POCT (IP) URGENT CARE (08/12/2025 10:33 AM CDT) Glucose UA neg Negative [facility] Bilirubin UA trace Negative [facility] Ketone UA neg Negative [facility] Specific [place] UA POCT 1.015 1.000 - 1.030 [facility] Blood UA 3+ Negative [facility] pH UA 6.0 5.0 - 8.0 pH units [facility] Protein UA trace Negative [facility] Urobilinogen UA 0.2 0.2 - 1.0 EU/dL [facility] Nitrite UA neg Negative [facility] Leukocyte UA 1+ Negative [facility] QC Verified Yes Yes [facility] Urine URINE / Unknown 08/12/2025 1 0:33 AM CDT Jaylen Hancock [employer] [facility] - POINT OF CARE ORD ERABLES Final Result [facility] [address] [phone] documented in this encounter Visit Diagnoses Diagnosis Right flank pain- Primary Abdominal pain, unspecified site Hematuria, unspecified type documented in this encounter Care Teams Power Superintendent Relationship Specialty Start Date End Date Esdras Herbert MD [address] [place] [address] PCP - General Internal Medicine 08/12/25 documented as of this encounter
--- OUTSIDE RECORDS SUMMARY | 2025-08-12 18:54 | XMS_ITS | Encounter Summary ---
Author Organization [facility] Address [address] [place] [address] Care Team Providers Care Director [employer] Name Role Phone Esdras Herbert MD Primary Care Provider [phone] Encounter Details Date Type Department Care Team (Late st Contact Info) Description 11/21/2023 Outitude Message Enc [address] [address] [address] [place] [address] Jeannine [facility] Provider medication Social History Tobacco Use Types Packs/Day Years Used Date Smoking Tobacco: Never Smokeless Tobacco: Never Comments:Counseled by Dr. Lucinda tobias. Alcohol Use Standard Drinks/Week Comments Yes 0 (1 standard drink = 0.6 oz pur e alcohol) socially PHQ-2 Answer Date Recorded Patient Health Questionnaire-2 Score 0 11/13/2023 Comments No Sex and Gender Information Value Date Recorded Sex Assigned at Female 12/19/2024 8:00 AM BOTTLE TESTER Legal Sex Female 3:25 PM CDT Gender Identity Female 12/19/2024 8:00 AM BOTTLE TESTER Sexual Orientation Straight 12/19/2024 8: 00 AM BOTTLE TESTER documented as of this encounter Plan of Treatment Upcoming Encounters Date Type Department Care Team (Late st Contact Info) Description 10/16/2025 10:00 AM BOTTLE TESTER Office Visit [address] [place] [address] Esdras Herbert MD [address] [place] [id number] documented as of this encounter Visit Diagnoses Not on filedocumented in this encounter Additional Health Concerns Assessment Noted Time PHQ-9 Depression Total Score: 2 11/13/19 24 10:16 AM BOTTLE TESTER documented as of this encounter Care Teams Director Enterprise Data [employer] Relationship Specialty Start Date End Date Esdras Herbert MD [address] [address] PCP - General INTERNAL MEDICINE 04/14/23 documented as of this encounter
--- OUTSIDE RECORDS SUMMARY | 2025-08-12 18:54 | XMS_ITS | Data Portability ---
Author Organization [facility] [place], [place], [place] Address [address] [place] [address] Assessment Encounter Date Assessment Date Assessment LastModified by Organization Details LastModified Time 01/31/2023 01/31/2023 Normal incision check at 1 week pp BP elevated at first, but just took nifidipine. Repeat much better. will check 2x daily at home and call with update in 5-6 days or sooner if severe range. continue modified activities as tolerated continue vitamins Discussed contraceptive options, patient considering nexplanon. Precautions given FU for 4 week exam [email or web address] Not available 01/31/2023 15:06:19 02/23/2023 02/23/2023 Normal exam May resume normal activities contraceptive plan-- nexplanon FU for nexplanon 2 weeks, then WWE 2 mos after will follow up with PCP in 4-8w re HTN. continue procardia for now [email or web address] Not available 02/23/2023 15:03:37 05/07/2023 05/07/2023 healthy female exam patient declines std testing pap done contraception- doing well with nexplanon FU 1 year or prn [email or web address] Not available 05/09/2023 09:57:48 Plan of Treatment Reminders Order Date Submit Date Provider Last Modified By Organization Details Last Modified Time Details Appointments None recorded. Lab test, urine 2022 023 [email or web address] 1 [address], [address], [place], [address], 11:41:00 Referral None recorded. Procedures None recorded. Surgeries None recorded. Imaging None recorded. Medication Orders Nexplanon 68 mg subdermal implant 2022 023 [email or web address] Not available 11:53:51 Patient TargetsNo targets recorded. Patient InstructionsNo instructions recorded. Reason for Referral None Reported. Results Created Date Observation Date Name Description Value Unit Range Abnormal Flag Note LastModifiedBy Organization Detail LastModifiedTime 12/30/1912/29/2022 PROTE IN, 24 HOUR URINE hours collected 24 h Not Available [facility] (Lab) [address] [place], [address], 12/30/2022 03:55:16 12/30/1912/29/2022 PROTE IN, 24 HOUR URINE total volume 1200 mL Not Available [facility] (Lab) [address] [place], [address], 12/30/2022 03:55:16 12/30/19 23 12/29/2022 PROTE IN, 24 HOUR URINE protein, urine 20 mg/dL R-No refer ence range estab lishe d for this assay Not Available [facility] (Lab) [address] [place], [address], 12/30/2022 03:55:16 12/30/19 23 12/29/2022 PROTE IN, 24 HOUR URINE protein, 24H urine 240 mg/24 h 10-150 high Not Available [facility] (Lab) [address] [place], [address], 12/30/2022 03:55:16 01/20/20 23 01/19/2023 PROTE IN, 24 HOUR URINE hours collected 24 h Not Available [facility] (Lab) [address] [place], [address], 01/20/2023 09:02:28 01/20/20 23 01/19/2023 PROTE IN, 24 HOUR URINE total volume 1500 mL Not Available [facility] (Lab) [address] [place], [address], 01/20/2023 09:02:28 01/20/20 23 01/19/2023 PROTE IN, 24 HOUR URINE protein, urine 21 mg/dL R-No refer ence range estab lishe d for this assay Not Available [facility] (Lab) [address] [facility], [place], [address], 01/20/2023 09:02:28 01/20/20 23 01/19/2023 PROTE IN, 24 HOUR URINE protein, 24H urine 315 mg/24 h 10-150 high Not Available [facility] (Lab) [address] [facility], [place], [address], 01/20/2023 09:02:28 01/20/20 23 01/19/2023 CULTU RE: GROUP B STREP SCREE N, REFLE X SUSCE PTIBI LITY result report SEE RESULT S BELOW Test: Cultu re: Group B Strep , Refle x Susce ptibi lity ([facility]/ [facility] ) Speci men Sourc e: Vagin a/Rec geovanna Speci men Type: Vagin al/Re ctal Speci men Date: 2022 2:47 PM Resul t Date: 2022 3:09 PM Resul t Statu s: Final resul t Abnor mal: No Resul ting Lab: [facility] [address] [facility] [address] Tel: CULTU RE ----- ----- ----- --- No Group B strep isola paula at 2 days (lor ctive broth enhan cemen t) Not Available [facility] (Lab) [address] [facility], [place], [address], 01/22/2023 16:13:19 03/12/20 23 03/12/2023 pregn wen test, urine HCG negati ve Not Available [facility] [address], [place], [address], 03/12/2023 11:40:39 07/10/05/07/2023 IMAGE GUIDE D PAP, REFLE X HPV IF ASCUS ONLY image guided Pap, reflex HPV ASCUS only SEE RESULT S BELOW CASE REPOR T: Cytol ogy Gynec ologi hamlet Repor t Case: [id number] Aut[address] milton bob Provi kayli: Viviane Javier MD Colle cted: 05/07 1509 Order ing Locat ion: [place] [facility] Recei esthela: 05/08 0726 First Scree n: Marcelo Rice , CT Rescr een: Nina Tompkins, CT Speci men: Scree megan Pap - Image d, Cervi x STATE MENT OF ADEQU ACY: Satis facto ry for evalu ation Trans forma tion zone compo nent absen t The absen ce of an endoc ervic al compo nent was confi rmed by an addit ional scree ner. FINAL DIAGN OSIS: Negat khanh for Intra epith elial Lescira sapp or Mei davies (NIL) . Elect chelsie cabrera alethea d by Nina Tompkins, CT on 2022 at 9:28 AM ----- ----- ----- ----- ----- ----- ----- ----- ----- ----- ----- ----- ----- ----- ----- ----- ----- ---- COMME NT: This speci men was revie wed by a Cytot echno logis t and/o r Patho logis t (as indic ated in this repor t) after evalu ation using the Thinp rep Imagi ng Syste m. CLINI HAMLET INFOR MATIO N: Menst rual Statu s: LMP (if appli cable ): Clini hamlet Histo ry/Pr eviou s Pap: Type of Neopl irma (if appli cable ): Signi fican t Clini hamlet Findi ngs: Other Histo ry: Hormo yoel (if appli cable ): PAP EDUCA EDMAR L NOTE: The Pap Test is a scree megan test with an inher ent false negat khanh rate. Liqui d-bas ed sampl ing may decre ase, but will not elimi natasha, false negat khanh resul ts. A negat khanh resul t does not precl ude the prese nce and/o r devel opmen t of disea se, since the prese nce of abnor mal cells in the sampl e depen ds on the locat ion of the lesio n and sampl ing techn ique. Kieran nued regul ar scree megan is the best metho d of cance r preve ntion . If repor paula cytol ogic findi ng do not corre late with physi hamlet and/o r histo rical findi ngs, furth er inves tigat ion is recom aicha d, as clini tasha chapa nted. Not Available [facility] (Lab) [address] [facility], [place], [address], 05/09/2023 10:32:49 12/30/19 23 12/29/2022 US, obste tric, bioph ysica l profi le + non-s tress test No observ ation record ed. [email or web address] [facility] [address], [place], [address], 12/29/2022 11:09:47 12/30/19 23 12/29/2022 US, obste tric, bioph ysica l profi le + non-s tress test No observ ation record ed. VASILIY Cheryl [address] [facility], [place], [address], 01/03/2023 09:50:25 12/30/19 23 12/29/2022 non-s tress test No observ ation record ed. [email or web address] [facility] [address], [place], [address], 12/29/2022 11:01:41 01/06/20 23 01/08/2023 US, obste tric, bioph ysica l profi le + non-s tress test No observ ation record ed. [email or web address] [facility] [address], [place], [address], 01/08/2023 18:34:32 01/06/20 23 01/05/2023 non-s tress test No observ ation record ed. [email or web address] [facility] [address], [place], [address], 01/05/2023 15:40:49 01/06/20 23 01/05/2023 US, obste tric, bioph ysica l profi le + non-s tress test No observ ation record ed. VASILIYTEENA Luna [address], [place], [address], 01/09/2023 10:26:53 01/13/20 23 01/12/2023 US, obste tric, bioph ysica l profi le + non-s tress test No observ ation record ed. [email or web address] [facility] [address], [place], [address], 01/12/2023 17:09:55 01/13/20 23 01/12/2023 US, obste tric, bioph ysica l profi le + non-s tress test No observ ation record ed. VASILIYTEENA Luna [address], [place], [address], 01/18/2023 18:36:03 01/13/20 23 01/12/2023 non-s tress test No observ ation record ed. [email or web address] [facility] [address], [place], [address], 01/12/2023 10:45:16 01/20/20 23 01/19/2023 US, obste tric, follo w-up No observ ation record ed. [email or web address] [facility] [address], [place], [address], 01/19/2023 13:36:03 01/20/20 23 01/19/2023 US, obste tric, bioph ysica l profi le + non-s tress test No observ ation record ed. [email or web address] [facility] [address], [place], [address], 01/19/2023 13:35:55 01/20/20 23 01/19/2023 US, obste tric, follo w-up No observ ation record ed. VASILIY Cheryl [address], [place], [address], 02/07/2023 23:52:25 01/20/20 23 01/19/2023 non-s tress test No observ ation record ed. [email or web address] [facility] [address], [place], [address], 01/21/2023 21:08:13 Result Notes None recorded. Problems Name Problem SNOMED Code Status Onset Date Resolution Date Notes Provider Name and Address Organization Details Recorded Time Chronic hyperten gael in obstetri c context 2016514 Completed baseline labs, ASA, ante testing, growth US, delivery 38w Valentine mcnair, [facility] 3 17:00:13 RhD negative 852808105 Active Rhogam received 11/30/22 Valentine mcnair, [facility] 3 17:00:13 RhD negative 071004656 Completed Rhogam received 11/30/22 Valentine Zarate null, [facility] 3 17:00:13 Breech presenta tion 0542211 Completed if breech 34w, schedule CS Valentine mcnair, [facility] 3 17:00:13 Maternal obesity complica ting pregnanc y, childbir th and the puerperi um, antepart um 3380037464 07 Completed 2021 BMI 40+ Valentine Zarate null, [facility] 3 17:00:13 Pregnanc y 07144759 Completed 202102/16/2023 Valentine Zarate null, [facility] 3 17:00:21 Pre-ecla mpsia 219043942 Completed 2022 Viviane Gillis MD [address], [place], [address], [facility] 3 22:23:21 Pre-ecla mpsia added to pre-exis ting hyperten gael 43224959 Completed 2022 24hr TP 315. Deliver 37w Valentine mcnair, [facility] 3 17:00:13 Essentia l hyperten gael 21395090 Active 2022 Viviane Gillis MD [address], [place], [address], [facility] 3 15:03:57 Surveill ance of subcutan eous contrace ptive implant Active 2022 Viviane Gillis MD [address], [place], [address], [facility] 3 09:58:11 Problem Notes None recorded. Procedures Surgical History Date Name Laterality Status Provider Name and Address Organization Details Recorded Time 03/12/20 23 Control Implant Insertion completed Sandra Andrew MARY ANNE- [address], [place], [address], [facility] 03/12/2023 11:51:28 01/25/20 23 SECTION (SURG) completed Virginia Rodríguez [facility] 02/13/2023 09:41:40 11/21/19 22 Nexplanon Removal completed Jaqui Rapp [facility] 11/21/2021 18:03:27 11/07/19 22 Date of Last Pap Smear completed Gela Sheppard [facility] 10/31/2022 11:47:55 10/29/19 09 Appendectomy completed Paulina Sharad [facility] 11/07/2021 09:42:04 Imaging Results None recorded. Procedure Notes None recorded. Medical Equipment None Reported. Allergies No known drug allergies Medications Name Sig Start Date Stop Date Status Note LastModified by Organization Details LastModified Time nifedipine ER 30 mg tablet,exte nded release 24 hr TAKE 1 TABLET BY MOUTH EVERY MORNING AND 2 TABLETS BY MOUTH EVERY EVENING active Not Available Not Available No t Available hydrocodone 5 mg-acetamin ophen 325 mg tablet TAKE 1 TABLET BY MOUTH EVERY 4 HOURS NEEDED FOR PAIN 03/12 completed Not Available Not Available Not Available FeroSul 325 mg (65 mg iron) tablet TAKE 1 TABLET BY MOUTH EVERY MORNING WITH BREAKFAST 05/07 completed Not Available Not Available Not Available Nexplanon 68 mg subdermal implant Inject 1 implant every day by subcutane ous route. 2022 active Not Available Not Available Not Avai lable Vitals Date Recorded Body weight Provider Name an d Address Organization Details Last Updated DateTime 01/31/2023 039794.09417 g Valentine Zarate [facility] 02/16/2023 17:00:19 Date Recorded Body height Body mass index (BMI) Systolic And Diastolic Systolic And Diastolic Systolic And Diastolic Provider Name and Address Organization Details Last Updated DateTime 01/31/2023 170.18 cm 43.4 kg/m2 153/90 mm[Hg] 160/78 mm[Hg] 132/90 mm[Hg] [facility] 11:24:26 Date Recorded Body height Body mass index (BMI) Body weight Systolic And Diastolic Provider Name and Address Organization Details Last Updated DateTime 02/23/2023 170.18 cm 41.2 kg/m2 259416.79 g 138/62 mm[Hg] [facility] 02/23/2023 11:51:32 Date Recorded Systolic And Diastolic Provider Name and Address Organization Details Last Updated DateTime 03/12/2023 116/76 mm[Hg] Sandra Andrew, [facility]- [address], [place], [address], [facility] 03/12/2023 11:51:05 Date Recorded Body height Body mass index (BMI) Body weight Provider Name and Address Organization Details Last Updated DateTime 03/12/2023 170.18 cm 41.2 kg/m2 387920.79 g Gela Sheppard [facility] 03/12/2023 11:38:33 Date Recorded Body height Body mass index (BMI) Body weight Systolic And Diastolic Provider Name and Address Organization Details Last Updated DateTime 05/07/2023 170.18 cm 41.2 kg/m2 322331.79 g 137/83 mm[Hg] Swapna Paredes [facility] 05/07/2023 14:20:20 Social History Question Answer Notes LastModified by Organizat ion Details LastModified Time Tobacco Smoking Status Never Smoker Aaron mcnair, [facility] 05/07/2023 14:10:45 Do You Have An Advance Directive? No [email or web address] Information n ot available 11/07/2021 If You Are , What Was Your Level Of Alcohol Consumption Prior To ? Occasional [email or web address] Information not available 05/07/2023 How Many Years Have You Consumed Alcohol? 4 [email or web address] Information not available 11/07/2021 Are You Blind Or Do You Have Difficulty Seeing? No [email or web address] Information n ot available 11/07/2021 What Is Your Level Of Caffeine Consumption? Occasional [email or web address] Information not available 03/12/2023 How Much Tobacco Do You Chew? None [email or web address] Information not available 11/07/2021 In The 14 Days Before Symptom Onset, Have You Had Close Contact With A Laboratory-confirm ed COVID-19 While That Case Was Ill? No [email or web address] Information n ot available 11/07/2021 In The 14 Days Before Symptom Onset, Have You Had Close Contact With A Person Who Is Under Investigation For COVID-19 While That Person Was Ill? No [email or web address] Information not available 11/07/2021 Have You Been To An Area Known To Be High Risk For COVID-19? No [email or web address] Information not available 11/07/2021 Are You Deaf Or Do You Have Serious Difficulty Hearing? No [email or web address] Information not available 11/07/2021 What Type Of Diet Are You Following? REGULAR [email or web address] Information n ot available 11/07/2021 What Is The Highest Grade Or Level Of School You Have Completed Or The Highest Degree You Have Received? [id number] [email or web address] Information not available 11/07/2021 Are There Any Guns Present In Your Home? No [email or web address] Information not available 11/07/2021 Have You Ever Been Counseled For Unhealthy Alcohol Use? No [email or web address] Information not available 05/07/2023 Do You Use Protection During Sex? No [email or web address] Information not available 10/31/2022 Do You Use Your Seat Belt Or Car Seat Routinely? Yes [email or web address] Information not available 11/07/2021 Do You Have Smoke And Carbon Monoxide Detectors In Your Home? Yes [email or web address] Information not available 11/07/2021 How Much Tobacco Do You Smoke? No [email or web address] Information not available 11/07/2021 Do You Use Sunscreen Routinely? Yes Information not available 11/07/2021 Has Tobacco Cessation Counseling Been Provided? No [email or web address] Information not available 05/07/2023 Have You Used IV Drugs? No Information not available 11/07/2021 Do You Have Difficulty Walking Or Climbing Stairs? No [email or web address] Information not available 05/07/2023 Sex: Unknown Functional Status Question Answer Note LastModified by Organizat ion Details LastModified Time Do you use any illicit or recreational drugs? No [email or web address] Information not available 11/07/2021 Do you or have you ever used any other forms of tobacco or nicotine? No Information not available 05/07/2023 What is your level of alcohol consumption? Occasional Information not available 03/12/2023 Are you able to walk independently without assistance or assistive devices? YESWOREST [email or web address] Information not available 11/07/2021 Are you able to care for yourself independently? 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 No Information not available 05/07/2023 What is your exercise level? None Information not available 11/07/2021 Mental Status Question Answer Note LastModified by Organization D etails LastModified Time Do you feel stressed (tense, restless, nervous, or anxious, or unable to sleep at night)? [id number] [email or web address] Information not available 01/19/2023 Family History Relationship Description Onset Age of this Age Resolved Age Notes LastModified by Organization Details LastModified Time Maternal Grandmother Malignant neoplasm of stomach [email or web address] Not available 2022 09:38:06 Maternal Grandmother Hypertensive disorder [email or web address] Not available 2021 09:38:15 Maternal Uncle Hypertensive disorder [email or web address] Not available 2021 09:38:15 Mother Hypertensive disorder Not available 2021 09:38:15 Maternal Grandfather Diabetes mellitus [email or web address] Not available 2021 09:38:15 Notes:10/14/2021 Cancer risk form complete Medical History Condition Response Allergies (Food, seasonal, environmental ) N Other N Breast Cancer N Drug/Latex Allergies/Reactions N Blood Transfusion N Dermatologic Disorders N Lung Disease N Defects or Inherited Disease N Breast Problem N Gestational Diabetes N Hematologic disorders N Anesthesia Complications N History of STI N Deep Vein Thrombosis N Polycystic ovary syndrome N Anxiety Disorder N Autoimmune disease N Arthritis N Infertility N Polyps N Acid Reflux (GERD) N History of abnormal pap N Cancer N Stroke N Varicosities N Neurologic/Epilepsy N Endometriosis N High Cholesterol N Headaches N Fibromyalgia N Kidney Disease N Heart Problems N Kidney or Bladder Problems N Thyroid Problems N GI Problems N Eating Disorder N Anemia N Art (IVF or FET) N Psychiatric Illness N Ovarian Cancer N Diabetes N Pulmonary (TB, Asthma) N Hepatitis/Liver Disease N No Past Medical History N Eczema N Urinary Tract Infection N Abuse/Domestic Violence N Asthma N Trauma/Violence N Depression/ depression N Heart Disease N Pre-Eclampsia Y Hypertension Y Osteoporosis N Thrombophilias N Gynecological History Statement/Question Response Abnormal Pap N Flow Heavy Date of LMP 05/01/2022 On BCP's at Conception? N N Was last menstrual period normal Y STIs/STDs N HPV Vaccine N Duration of Flow (days) 4 Current Control Method Implant Are cycles usually normal Y Frequency of Cycle (Q days) 36 Sexually Active? Y Menses Monthly Y Age of first menstrual cycle 13 Date of Last Pap Smear 11/07/2021 Sexual Problems? N Desired Control Method None LMP Approximate N Obstetrics History GPAL:G 1 P 1 0 0 1 Type Value Full Term 1 Living 1 Total 1 Past Encounters Encounter ID Performer Location Encounter Start Date Encounter Closed Date Diagnosis/Indication Diagnosis SNOMED-CT Code Diagnosis ICD10 Code Diagnosis IMO Codes Diagnosis Note [id number] Jaqui Rapp CNM [facility] [address] [address] 11/07/2021 09:27:00 11/07/2021 10:18:02 Gynecologic examination 88177722 Z01.419 Take Calcium with Vitamin D 1200mg daily if not receiving in daily diet. It is strongly advised to have an annual flu shot and up can obtain at most pharmacies . If you have not had a TDap shot in the last 10 years you should obtain one as well. Discussed with patient & provided with informatio n regarding Gardisil vaccine to prevent the 4 strains for HPV that cause cervical cancer if under age 26. Encourage safe sexual practices, to use condoms and limit partners if not already in a monogamous relationsh ip. Do monthly self breast exams. Have mammogram yearly or every other year depending on family history. BRCA testing is now available for patients with strong genetic history of female cancer. If interested contact the office. Engage in daily exercise of low impact aerobic exercise 45-60 minutes 4-5 times weekly. Avoid tobacco and illicit drugs as well as using moderation with alcohol intake less than 1-2 8 oz beverages daily. This lifestyle behavior pattern will lead to less health conditions and longer life span. If BMI greater than 25 weight watchers or dietary consult advised.Co nsidering nexplanon removal and . Encouraged taking pnv for 3 months prior. Patient received above instructio ns, and questions have been answered. If you have any questions please call or respond to this email. Patient was made aware of the patient portal and may obtain a paper copy of today's plan if desired. [id number] Viviane Gillis MD [facility] [address],[place] [address] 05/07/2023 14:10:28 05/09/2023 14:54:00 Gynecologic examination 47907948 Z01.419 Surveillan ce of subcutaneous contraceptive implant 839113546 Z30.46 [id number] Jaqui Rapp [facility] [address],[place] [address] 11/21/2021 17:43:07 11/21/2021 18:18:26 Removal of subcutaneous contraceptive 072669271 Z30.46 Care instructio ns given. Encouraged to start a with dha and folic acid. [id number] Viviane Gillis MD [facility] [address],[place] [address] 06/27/2022 10:26:03 06/27/2022 11:05:26 screening 525041386 Z36.87 [id number] Viviane Gillis MD [facility] [address],[place] [address] 06/27/2022 10:26:26 07/04/2022 15:51:26 test positive 920909736 Z32.01 Maternal o besity complicating , childbirth and the puerperium, antepartum 6759792783 07 O99.211 Chronic hy pertension complicating AND/OR reason for care during 36247400 O16.9 [id number] Viviane Gillis MD [facility] [address],[place] [address] 07/25/2022 09:20:56 07/25/2022 11:07:26 screening 534888027 Z36.82 [id number] Viviane Gillis MD [facility] [address],[place] [address] 07/25/2022 09:22:02 07/25/2022 14:44:56 Routine care 741943027 Z34.91 Chronic hy pertension complicating AND/OR reason for care during 94176607 O16.9 Maternal o besity complicating , childbirth and the puerperium, antepartum 5181458750 07 O99.211 [id number] Viviane Gillis MD [facility] [address],[place] [address] 08/29/2022 10:32:32 08/30/2022 18:49:13 Chronic hypertension complicating AND/OR reason for care during 07438198 O16.9 Maternal o besity complicating , childbirth and the puerperium, antepartum 3637811774 07 O99.211 [id number] Viviane Gillis MD [facility] [address],[place] [address] 09/26/2022 09:33:13 09/26/2022 13:24:09 screening 307852338 Z36.3 [id number] Viviane Gillis MD [facility] [address],[place] [address] 09/26/2022 09:33:53 09/27/2022 10:53:26 Routine care 611053066 Z34.91 Chronic hy pertension complicating AND/OR reason for care during 39056072 O16.9 Maternal o besity complicating , childbirth and the puerperium, antepartum 0351088521 07 O99.211 [id number] Scott John MD [facility] [address],[place] [address] 10/31/2022 10:27:39 10/31/2022 17:20:24 screening 749255838 Z36.2 Z3A.25 [id number] Jaqui Rapp [facility] [address],[place] [address] 10/31/2022 10:28:06 10/31/2022 18:20:17 Routine care 753806536 Z34.92 Chronic hy pertension complicating AND/OR reason for care during 46268714 O16.9 [id number] Viviane Gillis MD [facility] [address],[place] [address] 11/28/2022 09:32:01 11/28/2022 10:24:56 screening [id number] Z36.2 O10.013 Z3A.29 [id number] Viviane Gillis MD [facility] [address],[place] [address] 11/28/2022 09:32:48 11/29/2022 12:44:36 Chronic hypertension complicating AND/OR reason for care during 89935045 O16.9 Maternal o besity complicating , childbirth and the puerperium, antepartum [id number] 07 O99.211 RhD negative 484038129 Z 01.83 [id number] Kathy Fulton, [facility] [address],[place] [address] 12/08/2022 09:44:22 12/08/2022 10:40:49 Routine care 531601166 Z34.93 [id number] Viviane Gillis MD [facility] [address],[place] [address] 12/22/2022 09:04:14 12/22/2022 09:45:00 Maternal obesity complicating , childbirth and the puerperium, antepartum 5679285630 07 O99.213 O16.3 Chronic hy pertension complicating AND/OR reason for care during 45616745 O16.3 O99.210 Z3A.32 [id number] Viviane Gillis MD [facility] [address],[place] [address] 12/22/2022 09:04:39 12/22/2022 10:41:34 Chronic hypertension complicating AND/OR reason for care during 80265059 O16.3 O99.210 Z3A.32 [id number] Viviane Gillis MD [facility] [address],[place] [address] 12/22/2022 09:05:04 12/22/2022 16:34:05 Chronic hypertension complicating AND/OR reason for care during 95328990 O16.3 O99.210 Z3A.32 Breech presentation 6096 002 O32.1XX9 Maternal o besity complicating , childbirth and the puerperium, antepartum 6484495738 07 O99.213 O16.3 [id number] Viviane Gillis MD [facility] [address],[place] [address] 12/29/2022 10:06:39 12/29/2022 11:16:47 Maternal obesity complicating , childbirth and the puerperium, antepartum 3480242499 07 O99.213 O16.3 Z3A.33 [id number] Viviane Gillis MD [facility] [address],[place] [address] 12/29/2022 10:31:36 12/29/2022 11:54:03 Breech presentation 5490838 O32.1XX9 Chronic hy pertension complicating AND/OR reason for care during 70049941 O16.3 O99.210 Z3A.32 Maternal o besity complicating , childbirth and the puerperium, antepartum 4899191298 07 O99.213 O16.3 Z3A.33 [id number] Viviane Gillis MD [facility] [address],[place] [address] 12/29/2022 10:31:54 12/29/2022 11:14:21 Chronic hypertension complicating AND/OR reason for care during 43607182 O16.3 O99.210 Z3A.32 [id number] Viviane Gillis MD [facility] [address],[place] [address] 01/05/2023 14:26:51 01/05/2023 15:08:33 Chronic hypertension complicating AND/OR reason for care during 20059528 O16.3 O99.210 Z3A.34 [id number] Viviane Gillis MD [facility] [address],[place] [address] 01/05/2023 14:27:16 01/05/2023 16:59:10 Chronic hypertension complicating AND/OR reason for care during 09777039 O16.3 O99.210 Z3A.34 [id number] Viviane Gillis MD [facility] [address],[place] [address] 01/05/2023 14:27:51 01/05/2023 17:31:09 Breech presentation 9244351 O32.1XX9 Chronic hy pertension complicating AND/OR reason for care during 27988893 O16.3 O99.210 Z3A.34 [id number] Viviane Gillis MD [facility] [address],[place] [address] 01/12/2023 09:35:06 01/12/2023 10:16:44 Chronic hypertension complicating AND/OR reason for care during 12967825 O16.3 O99.210 Z3A.35 [id number] Viviane Gillis MD [facility] [address],[place] [address] 01/12/2023 09:35:46 01/12/2023 10:50:56 Chronic hypertension complicating AND/OR reason for care during 11156504 O16.3 O99.210 Z3A.35 [id number] Viviane Gillis MD [facility] [address],[place] [address] 01/12/2023 09:36:25 01/23/2023 15:51:15 Breech presentation 3611227 O32.1XX9 Chronic hy pertension complicating AND/OR reason for care during 01297795 O16.9 [id number] Viviane Gillis MD [facility] [address],[place] [address] 01/19/2023 09:37:38 01/19/2023 10:11:19 Chronic hypertension complicating AND/OR reason for care during 83429928 O16.3 O99.210 Gestation period, 36 weeks 14148247 Z3A.36 [id number] Scott John MD [facility] [address],[place] [address] 01/19/2023 09:37:57 01/19/2023 10:42:18 Chronic hypertension complicating AND/OR reason for care during 58813681 O16.9 [id number] Kathy Fulton, [facility] [address],[place] [address] 01/19/2023 09:38:18 01/19/2023 11:50:38 Routine care 441412140 Z34.93 [id number] Viviane Gillis MD [facility] [address],[place] [address] 01/25/2023 11:14:40 01/25/2023 11:17:01 [id number] Viviane Gillis MD [facility] [address],[place] [address] 01/31/2023 10:48:29 01/31/2023 15:29:51 Postoperative visit 730576121 Z09 Pre-eclamp jorge added to pre-existing hypertension 37696028 O11.9 [id number] Viviane Gillis MD [facility] [address],[place] [address] 02/23/2023 11:32:49 02/23/2023 15:58:07 care 933292007 Z39.2 Essential hypertension 85389199 I10 [id number] Sandra Andrew [facility] [address],[place] [address] 03/12/2023 11:06:01 03/12/2023 11:59:32 Contraception care management 977144784 Z30.9 Implantati on of subcutaneous contraceptive 363380656 Z30.9 Patient is here currently on her menses. She was given all the r/b/a of placement of the Nexplanon device and has signed the consent. She is fully aware of all possible side effects of the device and has decided to move forward with placement. Insertion site was cleansed with betadine and 3cc lidocaine used for anesthesia . Device was placed in the left arm per usual fashion w/o complicati on and patient instructed to f/u in one month or earlier if there are any si/sx of infection or hypersensi tivity at the insertion site Health Concerns Section Related Observation LastModified by Organization Detai ls LastModified Time None Recorded Concern Status LastModified by Organization Details LastModified Time None Recorded Advance Directives Directive N: Payers Insurance Date Sequence Insurance Name Policy Number Policy Mars Covered Member ID Mars Member ID Guarantor Name 05/07/[address] [facility] [id number] Eladia Grimaldo [id number] Eladia Grimaldo 05/07/2023 1 [employer] [id number] Eladia Grimaldo [id number] Eladia Grimaldo 05/07/2023 1 [facility] [id number] Eladia Grimaldo [id number] Eladia Grimaldo Notes Date Note Type Note Provider Name and Address Organization Details Recorded Time 01/31/2023 text/html Patient is a 27yo presenting for a 1 week visit for incision and BP check. She had a primary CS for breech and PreE at 37 weeks GA on 01/24. Baby Irish 7-8, diong well. Doing well overall. breast and bottlefeeding. Normal lochia. Pain- improving. Bowel and bladder function normal. Brethren score 3 Has not been taking BPs at home. Forgot nifedipine last night, just took about 40 min ago. Denies any PreE sx. Concerns: none Viviane Gillis MD [address], [place], [address], [facility] 01/31/2023 15:06:38 02/23/2023 text/html VisitReported by Patient Patient is a 27yo presenting for a 4 week visit. She had a primary CS on 01/24 at 37 weeks GA for breech and PreE. Baby Irish was 7-8, doing great. BPs at home most recently 120s-140s/90s. Taking nifedipine 30 BID. Doing well overall. bottlefeeding. Normal lochia. Pain- none. Bowel and bladder function normal. Period- no Annual due: now. last 10/2021 Concerns: none Viviane Gillis MD [address], [place], [address], [facility] 02/23/2023 15:04:24 03/12/2023 text/html ROS as noted in the HPI Here today for nexplanon insert. Sandra Andrew MARY ANNE- [address], [place], [address], [facility] 03/12/2023 11:53:42 05/07/2023 text/html Patient is a 27yo who presents for an annual exam. Irish doing great. Nexplanon placed 03/12/23, doing well. BP stable, PCP kept her on nifedipine. last pap-10/2021 no endo sexually active-y contraception-nexpl anon seatbelts-y exercise-some depression-denies domestic violence-denies tobacco-n concerns-n Viviane Gillis MD [address], [place], [address], [facility] 05/09/2023 10:01:54 OBGyn Episode Ob Episode Information Episode Created Date Number of Fetuses Patient Bloodtype Patient rh Status Prepregnancy Weight lbs Domestic Partner Domestic Partner Phone Father Name Computer Consultant Status 07/25/20 22 1 A Negative 261 CLOSED Fetus Data First Name Last Name Admitted to NICU Weight (g) Sex Living Outcome Pediatric Complications Fetus ID Race Codes Race Delivery Type Romulus tte 3401.94 F true Full Term [id number] Primary Problems Problem Notes is PA Problem Name Start Date End Date Resolution Snomed Code Not e Breech presentation [id number] if breech 34w, schedule CS Pre-eclampsia added to pre-existing hypertension 01/19/2023 [id number] 24hr TP 315. Deliver 37w Maternal obesity complicating , childbirth and the puerperium, antepartum 07/03/2022 [id number] BMI 4 0+ Chronic hypertension in obstetric context 8530000 baseline l abs, ASA, ante testing, growth US, delivery 38w RhD negative [id number] Rhogam received 11/30/22 Dawson Calculation Initial Dawson Date Initial Exam Date Initial Exam Provider Initial Ultrasound Date Last Menstrual Period Date Ultra Sound Weeks Gestation 02/13/2023 07/25/2022 06/27/2022 05/01/2022 7 Eighteen To Twenty Week Dawson Update Ultra Sound Date Fundal Height At Umbil Quickening Date Ultra Sound Latest Weeks Gestation Final Dawson Confirmed By Final Dawson Confirmed Date Final Dawson Date Ultra Sound Latest Days Gestation 0 [email or web address] 07/25/2022 02/14/20 23 0 Pre- Flowsheet Flowsheet Date 07/25/2022 Zheng Score Blood Edema Fundus Height Fundus Units Glucose Ketones Leukocytes Nitrite Labor Signs Protein Cervic Dilation Cervic Effacement Cervic Station neg none none trace Type Weight in lbs Pre/Post Dialysis Refused Weight 261.24382374973 BP Diastolic BP Location Tested BP Systolic BP Type 80 141 Fetus Heart Rate Present A 175 Fetus Movement A No Comments Rachele is a 27yo G1 at 11.0 for care. Her is complicated by morbid obesity and chronic hypertension, newly diagnosed. she is unmedicated. Her home BPs are all 140s/80s. Us today NT wnl. She will do PNL, NIPT, and baseline PIH labs today. She is taking ASA. We discussed the risks of cHTN and obesity in . SHe will get her flu shot and updated COVID booster. Routine prental care. Flowsheet Date 08/29/2022 Zheng Score Blood Edema Fundus Height Fundus Units Glucose Ketones Leukocytes Nitrite Labor Signs Protein Cervic Dilation Cervic Effacement Cervic Station neg none none trace Type Weight in lbs Pre/Post Dialysis Refused Weight 261.65449902295 BP Diastolic BP Location Tested BP Systolic BP Type 102 160 100 138 Fetus Heart Rate Present A 160 Fetus Movement A No Comments BPs at home up to 150s/upper 90s. We will start procardia xl 30mg. Anatomy US next visit. She is feeling well. Vaccines done. Flowsheet Date 09/26/2022 Zheng Score Blood Edema Fundus Height Fundus Units Glucose Ketones Leukocytes Nitrite Labor Signs Protein Cervic Dilation Cervic Effacement Cervic Station Type Weight in lbs Pre/Post Dialysis Refused BP Diastolic BP Location Tested BP Systolic BP Type Fetus Heart Rate Present Fetus Movement Comments Flowsheet Date 09/26/2022 Zheng Score Blood Edema Fundus Height Fundus Units Glucose Ketones Leukocytes Nitrite Labor Signs Protein Cervic Dilation Cervic Effacement Cervic Station neg trace none trace Type Weight in lbs Pre/Post Dialysis Refused Weight 265.677224762683 BP Diastolic BP Location Tested BP Systolic BP Type 79 143 Fetus Heart Rate Present A 160 Fetus Movement A Yes Comments Doing fine. BP better on pro cardia, tolerating it well. Some GERD, discussed OTCs. US today anatomy largely incomplete, will complete next visit. Flowsheet Date 10/31/2022 Zheng Score Blood Edema Fundus Height Fundus Units Glucose Ketones Leukocytes Nitrite Labor Signs Protein Cervic Dilation Cervic Effacement Cervic Station Type Weight in lbs Pre/Post Dialysis Refused BP Diastolic BP Location Tested BP Systolic BP Type Fetus Heart Rate Present Fetus Movement Comments Flowsheet Date 10/31/2022 Zheng Score Blood Edema Fundus Height Fundus Units Glucose Ketones Leukocytes Nitrite Labor Signs Protein Cervic Dilation Cervic Effacement Cervic Station neg trace none trace Type Weight in lbs Pre/Post Dialysis Refused Weight 272.364019460142 BP Diastolic BP Location Tested BP Systolic BP Type 83 141 Fetus Heart Rate Present Fetus Movement A Yes Comments Doing well. BP reasonable on procardia. No complaints. Plan to return in 3-4 weeks for next visit and gtt. Plan to repeat anatomy in 4 weeks. Flowsheet Date 11/28/2022 Zheng Score Blood Edema Fundus Height Fundus Units Glucose Ketones Leukocytes Nitrite Labor Signs Protein Cervic Dilation Cervic Effacement Cervic Station Type Weight in lbs Pre/Post Dialysis Refused BP Diastolic BP Location Tested BP Systolic BP Type Fetus Heart Rate Present Fetus Movement Comments Flowsheet Date 11/28/2022 Zheng Score Blood Edema Fundus Height Fundus Units Glucose Ketones Leukocytes Nitrite Labor Signs Protein Cervic Dilation Cervic Effacement Cervic Station neg trace none trace Type Weight in lbs Pre/Post Dialysis Refused Weight 280.99114922923 BP Diastolic BP Location Tested BP Systolic BP Type 81 149 88 142 Fetus Heart Rate Present A 140 Fetus Movement A Yes Comments Doing well. GCT today. Rhoga m order given. Discussed and encouraged Tdap. US today 89%, anatomy now complete except for LVOT, DA, AA. Ante testing scheduled. BP creeping up a little, may need to increase meds. Flowsheet Date 12/08/2022 Zheng Score Blood Edema Fundus Height Fundus Units Glucose Ketones Leukocytes Nitrite Labor Signs Protein Cervic Dilation Cervic Effacement Cervic Station neg trace 32 none trace Type Weight in lbs Pre/Post Dialysis Refused Weight 279.094128693828 BP Diastolic BP Location Tested BP Systolic BP Type 89 160 86 150 Fetus Heart Rate Present A 147 Present Fetus Movement A Yes Comments patient is having some swell ing. denies prajapati, visual changes, has been taking bp meds, has not been taking bp at home. discussed drawing labs today, reviewed precautions. TO take bp's over the weekend. if any >160 or/ >[address] john to increase bp meds, otherwise will evaluate on sunday. If any sxs to LD for evaluation. discussed 38 week IOL. precautions reviewed. f/u as scheduled Flowsheet Date 12/22/2022 Zheng Score Blood Edema Fundus Height Fundus Units Glucose Ketones Leukocytes Nitrite Labor Signs Protein Cervic Dilation Cervic Effacement Cervic Station Type Weight in lbs Pre/Post Dialysis Refused BP Diastolic BP Location Tested BP Systolic BP Type Fetus Heart Rate Present Fetus Movement Comments Flowsheet Date 12/22/2022 Zheng Score Blood Edema Fundus Height Fundus Units Glucose Ketones Leukocytes Nitrite Labor Signs Protein Cervic Dilation Cervic Effacement Cervic Station Type Weight in lbs Pre/Post Dialysis Refused BP Diastolic BP Location Tested BP Systolic BP Type Fetus Heart Rate Present Fetus Movement Comments Flowsheet Date 12/22/2022 Zheng Score Blood Edema Fundus Height Fundus Units Glucose Ketones Leukocytes Nitrite Labor Signs Protein Cervic Dilation Cervic Effacement Cervic Station neg trace none trace Type Weight in lbs Pre/Post Dialysis Refused Weight 282.461633825681 BP Diastolic BP Location Tested BP Systolic BP Type 90 153 88 140 Fetus Heart Rate Present A 150 Fetus Movement A Yes Comments Doing fine. Some BPs higher at home. 130s-164/70s-111. PC ratio last visit was 0.21. Will repeat 24 hour urine and increase procardia to 30 BID. Denies any sx preE. Will order breast pump. US today 69%, BPP 10/10. BREECH. Will monitor, if still breech at 34w, will schedule CS. Would not attempt ECV given her primiparity and morbid obesity as do not suspect it could be successful. Flowsheet Date 12/29/2022 Zheng Score Blood Edema Fundus Height Fundus Units Glucose Ketones Leukocytes Nitrite Labor Signs Protein Cervic Dilation Cervic Effacement Cervic Station Type Weight in lbs Pre/Post Dialysis Refused BP Diastolic BP Location Tested BP Systolic BP Type Fetus Heart Rate Present Fetus Movement Comments Flowsheet Date 12/29/2022 Zheng Score Blood Edema Fundus Height Fundus Units Glucose Ketones Leukocytes Nitrite Labor Signs Protein Cervic Dilation Cervic Effacement Cervic Station Type Weight in lbs Pre/Post Dialysis Refused BP Diastolic BP Location Tested BP Systolic BP Type Fetus Heart Rate Present Fetus Movement Comments Flowsheet Date 12/29/2022 Zheng Score Blood Edema Fundus Height Fundus Units Glucose Ketones Leukocytes Nitrite Labor Signs Protein Cervic Dilation Cervic Effacement Cervic Station neg trace none trace Type Weight in lbs Pre/Post Dialysis Refused Weight 289.111203275579 BP Diastolic BP Location Tested BP Systolic BP Type 90 155 90 162 88 150 Fetus Heart Rate Present A 140 Fetus Movement A Yes Comments Doing well. No PRAJAPATI/BV/other s x. BPs at home 120s-130s/70s-80s. Taking nifedipine BID. Brought 24 hour urine back today. Still breech. BPP 08/07. PreE precautions given. Will bring BP to check calibration next week. Will schedule CS if still breech next week. Discussed 37w delivery if superimposed PreE. Flowsheet Date 01/05/2023 Zheng Score Blood Edema Fundus Height Fundus Units Glucose Ketones Leukocytes Nitrite Labor Signs Protein Cervic Dilation Cervic Effacement Cervic Station Type Weight in lbs Pre/Post Dialysis Refused BP Diastolic BP Location Tested BP Systolic BP Type Fetus Heart Rate Present Fetus Movement Comments Flowsheet Date 01/05/2023 Zheng Score Blood Edema Fundus Height Fundus Units Glucose Ketones Leukocytes Nitrite Labor Signs Protein Cervic Dilation Cervic Effacement Cervic Station Type Weight in lbs Pre/Post Dialysis Refused BP Diastolic BP Location Tested BP Systolic BP Type Fetus Heart Rate Present Fetus Movement Comments Flowsheet Date 01/05/2023 Zheng Score Blood Edema Fundus Height Fundus Units Glucose Ketones Leukocytes Nitrite Labor Signs Protein Cervic Dilation Cervic Effacement Cervic Station trace Type Weight in lbs Pre/Post Dialysis Refused Weight 289.399671743333 BP Diastolic BP Location Tested BP Systolic BP Type 89 164 106 159 82 132 Fetus Heart Rate Present A 130 Fetus Movement A Yes Comments Doing fine. Denies PRAJAPATI/BV/EP. FIrst BPs elevated, back to baseline with rest. Her cuff calibrates fine. 24 hour urine wa 240, will give supplies next week to repeat at 36w. Still breech, will schedule CS for 38w, if PreE, will move up to 37w. BPP 08/07. GCT results missing from chart, but was done and was normal, received from lab. Precautions given. COntinue checking BP at home and call for > 160/105. Flowsheet Date 01/12/2023 Zheng Score Blood Edema Fundus Height Fundus Units Glucose Ketones Leukocytes Nitrite Labor Signs Protein Cervic Dilation Cervic Effacement Cervic Station Type Weight in lbs Pre/Post Dialysis Refused BP Diastolic BP Location Tested BP Systolic BP Type Fetus Heart Rate Present Fetus Movement Comments Flowsheet Date 01/12/2023 Zheng Score Blood Edema Fundus Height Fundus Units Glucose Ketones Leukocytes Nitrite Labor Signs Protein Cervic Dilation Cervic Effacement Cervic Station Type Weight in lbs Pre/Post Dialysis Refused BP Diastolic BP Location Tested BP Systolic BP Type Fetus Heart Rate Present Fetus Movement Comments Flowsheet Date 01/12/2023 Zheng Score Blood Edema Fundus Height Fundus Units Glucose Ketones Leukocytes Nitrite Labor Signs Protein Cervic Dilation Cervic Effacement Cervic Station neg trace none trace Type Weight in lbs Pre/Post Dialysis Refused Weight 293.759527854944 BP Diastolic BP Location Tested BP Systolic BP Type 92 157 90 148 Fetus Heart Rate Present A 135 Fetus Movement A Yes Comments Doing fine. HOme BPs 1040s/8 0s-90s. Denies preE sx. Doing 24 hour urine next week to see if delivery at 37 or 38w. BPP 08/07. Preregistration scheduled. Precautions given. Flowsheet Date 01/19/2023 Zheng Score Blood Edema Fundus Height Fundus Units Glucose Ketones Leukocytes Nitrite Labor Signs Protein Cervic Dilation Cervic Effacement Cervic Station Type Weight in lbs Pre/Post Dialysis Refused BP Diastolic BP Location Tested BP Systolic BP Type Fetus Heart Rate Present Fetus Movement Comments Flowsheet Date 01/19/2023 Zheng Score Blood Edema Fundus Height Fundus Units Glucose Ketones Leukocytes Nitrite Labor Signs Protein Cervic Dilation Cervic Effacement Cervic Station Type Weight in lbs Pre/Post Dialysis Refused BP Diastolic BP Location Tested BP Systolic BP Type Fetus Heart Rate Present Fetus Movement Comments Flowsheet Date 01/19/2023 Zheng Score Blood Edema Fundus Height Fundus Units Glucose Ketones Leukocytes Nitrite Labor Signs Protein Cervic Dilation Cervic Effacement Cervic Station neg trace none trace Type Weight in lbs Pre/Post Dialysis Refused Weight 292.094580519053 BP Diastolic BP Location Tested BP Systolic BP Type 100 167 98 152 Fetus Heart Rate Present Fetus Movement A Yes Comments patient is having some swell ing. denies prajapati, visual changes, epigastric pain, to ld for lab work, 24 hr urine dropped off today, precautions reviewed, breech efw 82% currently scheduled for section at 38 weeks Flowsheet Date 01/24/2023 Zheng Score Blood Edema Fundus Height Fundus Units Glucose Ketones Leukocytes Nitrite Labor Signs Protein Cervic Dilation Cervic Effacement Cervic Station Type Weight in lbs Pre/Post Dialysis Refused BP Diastolic BP Location Tested BP Systolic BP Type Fetus Heart Rate Present Fetus Movement Comments Flowsheet Date 01/31/2023 Zheng Score Blood Edema Fundus Height Fundus Units Glucose Ketones Leukocytes Nitrite Labor Signs Protein Cervic Dilation Cervic Effacement Cervic Station Type Weight in lbs Pre/Post Dialysis Refused Weight 277.201513975708 BP Diastolic BP Location Tested BP Systolic BP Type 90 153 78 160 90 132 Fetus Heart Rate Present Fetus Movement Comments Menstrual History Last Menstrual Date Menses Monthly On Bcp Conception Prior Menses Frequency Hcg Plus Date Menarche Onset Age 0705/01/2022 Genetic Screening And Infection History Question Response Note Mental Retardation/Autism false Patient's Age Will Be 35 Years Or Older At Estim ated Date of Delivery false Thalassemia (Zambian, Zambian, Mediterranean, Or Background): MCV < 80 false Neural Tube Defect (Meningomyelocele, Spina Bifi da, Or Anencephaly) false Congenital Heart Defect false Down Syndrome false Bakari-Sachs (eg, Voodoo, Cajun, Bahraini-Swazi) f alse Chano Disease false Sickle Cell Disease Or Trait () false Hemophilia Or Other Blood Disorders false Muscular Dystrophy false Cystic Fibrosis false [place]'s Chorea false Intellectual Disability/Autism false If Yes, Was Person Tested For Fragile X? false Other Inherited Genetic Or Chromosomal Disorder false Maternal Metabolic Disorder (eg, Type 1 Diabetes , PKU) false Patient Or Baby's Father Had A Child With Defects Not Listed Above false Recurrent Loss, Or A Stillbirth false Medications (including Suppl ements, Vitamins, Herbs, OTC Drugs), Illicit/Recreational Drugs, Alcohol false If Yes, Agent(s) And Strength/Dosage false Any Other Genetic History false Live With Someone With TB Or Exposed To TB false Patient Or Partner Has History Of Genital Herpes false Rash Or Viral Illness Since Last Menstrual Perio d false History Of STD, Gonorrhea, Chlamydia, HPV, Syphi lis false Other Infection History false History of HIV false History of Hepatitis false Prior GBS-infected child false Hemoglobinopathy Or Carrier false Other Structural Defect false Recent Travel History Outside of Country false Delivery Information Delivery Date Delivery Type Labor Anesthesia Weeks Gestation Incision Type Labor Labor Length Hrs Delivered By Post Complications Tubal Sterilization Discharge Date Comments 3 None Regional-Sp inal 37.1 Low Transvers e false Viviane Gillis MD Maternal obesity, CHTN, Breech presentat ion & pre-eclam psia Discharge Information Feeding Method Contraceptive Method Maternal HG B and HCT Levels
--- OUTSIDE RECORDS SUMMARY | 2025-08-12 18:54 | XMS_ITS | Clinical Summary ---
Author Organization [facility] Address [address] [place] [address] Care Team Providers Care Library Paraprofessional Name Role Phone Ivanna Schaeffer DO Unavailable [phone] Opal Resendiz MD Primary Care Provider [phone] Allergies No known active allergies Medications ibuprofen 200 mg capsule take 1 capsule by oral route every 6 hours as needed 60 0 03/30/2016 Active etonogestreL (Nexplanon) 68 mg implant 04/30/2019 Active topiramate (TOPAMAX) 100 mg tablet Take 1 tablet (100 mg total) by mouth 2 (two) times a day 12/19/2024 Active losartan-hydroC HLOROthiazide (HYZAAR) 100-12.5 mg per tablet Take 0.5 tablets by mouth daily 01/11/2024 Active ferrous sulfate 325 mg (65 mg of elemental iron) tablet Take 1 tablet (325 mg total) by mouth daily 04/17/2023 Active Active Problems Problem Noted Date Diagnosed Date Well woman exam 02/09/2025 Overview (02/09/2025): Nexplanon due out- 02/2026 Lab: Pap:last [address] Gillis, WNL Labs with PCP Sarah Beth:n/a Colonoscopy:n/a BMD:n/a Gardasil:Yes Assessment & Plan (02/09/2025 1:53 PM CDT): Pap done. RTO 12m. I will send the results to the portal. If she has not heard in a week, to call the office. Visit for annual health examination 09/03/2019 Assessment & Plan (09/03/2019 11:56 AM POWER LINE INSTALLER): Recommend healthy diet and regular exercise. Recommended weight loss to lifestyle modification. Discussed immunization against influenza and tetanus. Patient has received immunization for influenza throw work. She will be receiving Tdap today. Acne vulgaris 09/03/2019 Assessment & Plan (06/01/2020 9:54 AM CDT): Continue Benzamycin gel to apply twice a day. Recommended dermatology referral. Patient refused for now. She has seen a anger control counselor in the past. Assessment & Plan (04/20/2020 11:43 AM CDT): Discussed acne. Recommended patient to notify regarding the medication that was being prescribed by the anger control counselor. For now we will prescribe erythromycin benzoyl peroxide gel to apply topically twice a day for 14 days. If symptoms persist patient notify. Recommended to avoid shaving and see if that helps with the acne/rash. Discussed other options like oral contraceptive pills. (patient had call back regarding the medication for acne that was prescribed by the anger control counselor, clarithromycin 1%.) Was recommended to see a shoe shiner to see medication options, to discuss oral contraceptive pills if acne persist. Assessment & Plan (09/03/2019 11:57 AM POWER LINE INSTALLER): Discussed treatment options. Recommended Dermatology referral. Recommended proper diet and hydration. Resolved Problems Problem Noted Date Diagnosed Date Resolved Date Morbid obesity with BMI of 40.0-44.9, adult 04/20/2020 02/09/2025 Assessment & Plan (06/01/2020 9:53 AM CDT): Discussed weight loss through healthy diet and regular exercise. Patient has been implementing lifestyle modification. Discussed treatment options with medication. Discussed achieve will realistic goals. Patient refused to start medication for now. Highly recommended seeing a dietitian. We will follow-up in 2-3 months. Spent 50% of time counseling regarding weight loss, management and medication. Assessment & Plan (04/20/2020 11:45 AM CDT): Discussed obesity and complications. Discussed treatment options for weight loss.. Highly recommended weight loss through healthy diet and regular exercise. Recommended realistic goals. Referring patient to the dietitian. We will re-evaluate in 6 weeks if patient would like to consider weight loss medically. Current waist circumference was 47 in. Abnormal menstrual cycle 09/03/2019 Assessment & Plan (04/20/2020 11:44 AM CDT): Patient has been following up with the shoe shiner.Recommended follow-up if considering weight loss through medication. Assessment & Plan (09/03/2019 12:00 PM POWER LINE INSTALLER): Discussed abnormal stool cycle. Discussed very likely secondary to her Nexplanon. Patient will be on the implant for another 3 years. Discussed the possibility of polycystic ovarian syndrome. We will be checking her blood sugar. Patient has not been trying to conceive lately. However if it is a concerned in future we will address that. Highly recommended weight loss through healthy diet and regular exercise. Ordering a thyroid function test. Patient voiced understanding and agrees with the plan. Immunizations Immunization Administration Dates Next Due DTP / HiB 1996,1996,1996 DTaP 08/20/2000,08/29/1999 HPV, Quadrivalent 08/21/2011,04/18/2011,04/06/20 10 Hep A, Pediatric 04/18/2011,04/06/2010 Hep B, Adolescent or Pediatric 0,1996,1996,06/07 Hib (HbOC) 08/29/1999 IPV 08/20/2000,08/29/1999 Influenza, Quadrivalent, Spl it, Preservative Free, Intramuscular 08/18/2019 MMR 08/20/2000,08/11/1998 Meningococcal MCV4P (Menactra) 04/23/2014,2009 OPV 1996,1996,1996 Tdap 09/03/2019,04/06/2010 Varicella 08/20/2000,09/11/1997 Surgical History Surgery Date Site/Laterality Comments APPENDECTOMY SECTION Medical History Medical History Date Comments Hx Other Medical appendix 2009 Headache Hypertension Family History Medical History Relation Name Comments Diabetes Maternal Grandfather Hypertension Maternal Grandmother Stomach cancer Maternal Grandmother Hypertension Mother Brain Aneurysm Paternal Grandfather Thyroid disease Paternal Grandfather Cancer Neg Hx no colon, 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 No 02/09/2025 Within the last year, have y ou been humiliated or emotionally abused in other ways by your partner or ex-partner? No Within the last year, have y ou been kicked, hit, slapped, or otherwise physically hurt by your partner or ex-partner? No 02/09/2025 Within the last year, have y ou been raped or forced to have any kind of sexual activity by your partner or ex-partner? No 02/09/2025 AUDIT-C Answer Date Recorded Frequency of Alcohol Consumption Not on file 09/03/2019 Average Number of Drinks 1 or 2 019 Frequency of Binge Drinking Weekly 03/2019 PHQ-2 Answer Date Recorded PHQ-2 Score 0 09/03/2019 Comments Unknown Sex and Gender Information Value Date Recorded Sex Assigned at Not on file Legal Sex Female 10:24 AM POWER LINE INSTALLER Gender Identity Not on file Sexual Orientation Not on file Obstetrics History Para Term AB IAB SAB Ectopic Multiple Livin g Live Births 1 1 1 1 1 Date Outcome GA Total Labor Labor/2nd/3rd Weight Sex Type Anes PTL Diane A1 A5 Name Clin 2022 Term 38w 0d 3.43 kg (7 lb 9 oz) F C-Sec tion Epidur al N Livin g Luba whitee Dr. Kendall johnson Complications:None Delivery Location:[place] Last Filed Vital Signs Vital Sign Reading Time Taken Comments Blood Pressure 136/80 02/09/2025 1:22 PM CDT Pulse 91 06/01/2020 8:11 AM CDT Temperature 36.7 C (98 F) 06/01/2020 8:11 AM CDT Respiratory Rate - - Oxygen Saturation 98% 06/01/2020 8:11 AM CDT Inhaled Oxygen Concentration - - Weight 98 kg (216 lb) 02/09/2025 1:22 PM CDT Height 167.6 cm (5' 6) 02/09/2025 1:22 PM CDT Body Mass Index 34.86 02/09/2025 1:22 PM CDT Plan of Treatment Health Maintenance Due Date Last Done Comments Hepatitis C Screening 1996 Depression Screening 09/03/2020 09/03/2019 Covid-19 Vaccine ( season) 2025 10/25/2021, 03/14/2021, 02/18/2021 Influenza Vaccine (#1) 2025 , 07/19/2023, 09/09/2022, Additional history exists Cervical Cancer Screening 02/09/2026 02/09/2025 Regular Well Visit/Exam 18-64 02/09/2026 02/09/2025 DTaP/Tdap/Td Vaccine (9 - Td or Tdap) 12/03/2032 12/03/2022, 09/03/2019, 04/06/2010, Additional history exists Hepatitis B Screening Completed 01/02/2000 , 1996, 1996, Additional history exists Varicella Vaccines Completed 08/20/2000, 09/11/1997 HPV Vaccines Completed 08/21/2011, 03/30, 04/06/2010 Pneumococcal vaccine <65 Aged Out No longer eligible based on patient's age to complete this topic Procedures Procedure Name Priority Date/Time Associated Diagnosis Comments PAP, REFLEX HPV Routine 02/09/2025 2:22 PM CDT Well woman exam from Last 3 Months or Most Recently Relevant to Health Maintenance Results * Pap, reflex HPV (02/09/2025 2:22 PM CDT) Clinical indication Comment [facility] - 01 Comment:NEGATIVE FOR INTRAEP ITHELIAL LESION OR MALIGNANCY. Recommendation Comment [facility] - 01 Comment:Suggest follow up as clinically appropriate. Specimen adequacy: Comment [facility] - 01 Comment: Satisfactory for evaluation. Endocervical and/or squamous metaplastic cells (endocervical component) are present. Clinician provided ICD10 Comment [facility] - 01 Comment:Z01.419 Performed by Comment [facility] - 01 Comment:Yvonne Faith, Chris logist (ASCP) QC reviewed by Comment [facility] - 01 Comment:Cirilo Lawson tologist . . [facility] - 01 Note: Comment [facility] - 01 Comment: The Pap smear is a screening test designed to aid in the detection of premalignant and malignant conditions of the uterine cervix. It is not a diagnostic procedure and should not be used as the sole means of detecting cervical cancer. Both false-positive and false-negative reports do occur. Test methodology Comment [facility] - 01 Comment: This liquid based ThinPrep(R) pap test was screened with the use of an image guided system. . Comment [facility] - 01 Comment: The HPV DNA reflex criteria were not met with this specimen result therefore, no HPV testing was performed. Thin prep 02/09/2025 2:22 PM CDT 02/09/2025 Narrative [facility] - 02/16/2025 3:09 PM CDT Performed at: [address] [place] [id number] English Language Arts Teacher: Yaneth Christensen MD, Phone: [phone] Specimen Comment: [id number] Specimen Comment: No. of containers..01 ThinPrep Vial us Marya Molina MD LAB CYTOLOGY ORDERA BLES Final [facility] - from Last 3 Months or Most Recently Relevant to Health Maintenance Insurance [facility] [employer] [facility]/PPO Address: [place] [address] Care Teams Library Paraprofessional Relationship Specialty Start Date End Date Opal Resendiz MD PCP - General Family Medicine 07/26/20 Ivanna Schaeffer DO Family Practice 09/03/19
--- OUTSIDE RECORDS SUMMARY | 2025-08-12 18:54 | XMS_ITS | Clinical Summary ---
Author Organization [facility] Address [address] [place] [address] Care Team Providers Care Store Hand Name Role Phone Esdras Herbert MD Primary Care Provider [phone] Allergies No known active allergies Medications etonogestrel (NEXPLANON) 68 MG SC implant daily. Active topiramate (TOPAMAX) 100 MG tabletIndications :Morbid obesity (CMS/HCC) Take 1 tablet (100 mg total) by mouth 2 (two) times daily. 180 tablet 1 5 Active losartan-hydroCHL OROthiazide (HYZAAR) 100-12.5 MG tabletIndications :Primary hypertension Take 0.5 tablets by mouth daily. 45 tablet 1 5 Active ferrous sulfate, 65 mg elemental, 325 (65 FE) MG tabletIndications :Anemia, unspecified type Take 1 tablet (325 mg total) by mouth daily with breakfast. 90 tablet 1 5 Active Active Problems Problem Noted Date Diagnosed Date RhD negative 06/18/2023 Overview (06/18/2023): Rhogam received 11/30/22 Rhogam received 11/30/22 Leukocytosis, unspecified type 03/19/2023 Low hemoglobin 03/19/2023 Low vitamin D level 03/19/2023 RhD negative 03/09/2023 Essential hypertension 02/23/2023 Morbid obesity with body mass index of 40.0-44.9 in adult 04/20/2020 Overview (03/09/2023): Last Assessment & Plan: Discussed weight loss through healthy diet and regular exercise. Patient has been implementing lifestyle modification. Discussed treatment options with medication. Discussed achieve will realistic goals. Patient refused to start medication for now. Highly recommended seeing a dietitian. We will follow-up in 2-3 months. Spent 50% of time counseling regarding weight loss, management and medication. Resolved Problems Problem Noted Date Diagnosed Date Resolved Date Pre-eclampsia added to pre-e xisting hypertension 01/19/2023 03/09/2023 Maternal chronic hypertension 07/03/2022 03/09/2023 Encounters Date Type Department Care Team Description 06/21/2025 Results [facility] [place] [address] [place] [address] Esdras Herbert MD CBC W/DIFF AUTOMATED, COMPREHENSIVE METABOLIC PANEL, LIPID PANEL, Additional followed-up results: 3 06/19/2025 10:00 AM CDT [facility] [place] [address] [place] [address] Esdras Herbert MD Physical 06/19/2025 Travel from Last 3 Months Immunizations Immunization Administration Dates Next Due Dtap (Acel-Immune) 08/20/2000,08/29/1999 Dtp/Hib (Tetramune) 1996,1996,1995 HPV4 (Gardasil) 08/21/2011,04/18/2011,04/06/2010 Hepatitis A (Havrix [address]) 04/18/2011, 010 Hepatitis B Pediatric 01/02/2000, 997,1996,06/07 Hib Vaccine, Hboc 08/29/1999 Influenza Adult (Generic) 07/30/2023,,09/09/2022,10/25,08/18/2019 MMR (MMRII) 08/20/2000,08/11/1998 Meningococcal (Menactra) 04/23/2014,04/06/2010 PFIZER COVID-19 (ORIGINAL FO RMULATION, PURPLE CAP) mRNA, LNP-S, PF, 30 MCG/0.3 ML DOSE 10/25/2021,03/14/2021,02/18/2021 PFIZER COVID-19 BIVALENT (12 +) mRNA, LNP-S, PF, 30 MCG/0.3 ML DOSE 07/30/2023 Polio IPV (Ipol) 08/20/2000,08/29/1999 Polio Opv (Generic) 1996,1996,1995 Tdap (Generic) 12/03/2022,09/03/2019,04/06/2010 Varicella (Varivax) 08/20/2000,09/11/1997 Family History Medical History Relation Comments No Known Problems Father Diabetes Maternal Grandfather Cancer Maternal Grandmother Hypertension Maternal Grandmother Hypertension Mother No Known Problems Paternal Grandfather No Known Problems Paternal Grandmother No Known Problems Sister Relation Status Comments Father Alive Maternal Grandfather Alive Maternal Grandmother Alive Mother Alive Paternal Grandfather Paternal Grandmother Alive Sister Alive Social History Tobacco Use Types Packs/Day Years Used Date Smoking Tobacco: Never Smokeless Tobacco: Never Tobacco Cessation:Counseling Given: Not Answered Comments:Counseled by Dr. Herbert. Alcohol Use Standard Drinks/Week Comments Yes 0 (1 standard drink = 0.6 oz pur e alcohol) socially [id number] Health Literacy Answer Date Recor ded How often do you need to hav e someone help you when you read instructions, pamphlets, or other written material from your doctor or pharmacy? Never 06/19/2025 Humiliation, Afraid, Rape, and Kick questionnair e Answer Date Recorded Within the last year, have y ou been afraid of your partner or ex-partner? No 06/19/2025 Within the last year, have y ou been humiliated or emotionally abused in other ways by your partner or ex-partner? No Within the last year, have y ou been kicked, hit, slapped, or otherwise physically hurt by your partner or ex-partner? No 06/19/2025 Within the last year, have y ou been raped or forced to have any kind of sexual activity by your partner or ex-partner? No 06/19/2025 Social Connection and Isolation Panel Answer Date Recorded In a typical week, how many times do you talk on the phone with family, friends, or neighbors? More than three times a week 06/19/2025 How often do you get togethe r with friends or relatives? More than three times a week 06/19/2025 How often do you attend chur or temple services? Patient unable to answer 06/19/2025 Do you belong to any clubs o r organizations such as congregation groups, unions, fraternal or athletic groups, or school groups? Patient unable to answer 06/19/2025 How often do you attend meet ings of the clubs or organizations you belong to? 1 to 4 times per year 06/19/2025 Are you , , di vorced, , never , or living with a partner? 06/19/2025 AUDIT-C Answer Date Recorded Q1: How often do you have a drink containing alc ohol? Monthly or less 06/19/2025 Q2: How many drinks containi ng alcohol do you have on a typical day when you are drinking? 1 or 2 06/19/2025 Q3: How often do you have si x or more drinks on one occasion? Never 06/19/2025 Overall Financial Resource Strain (CARDIA) Answe r Date Recorded How hard is it for you to pa y for the very basics like food, housing, medical care, and heating? Not very hard 06/19/2025 PHQ-2 Answer Date Recorded Patient Health Questionnaire-2 Score 1 06/19/2025 [facility] - Occupational Stress Questionnaire Answer Date Recorded Do you feel stress - tense, restless, nervous, or anxious, or unable to sleep at night because your mind is troubled all the time - these days? To some extent 06/19/2025 Exercise Vital Sign Answer Date Recorde d On average, how many days pe r week do you engage in moderate to strenuous exercise (like a brisk walk)? 0 days 06/19/2025 On average, how many minutes do you engage in exercise at this level? 0 min 06/19/2025 Hunger Vital Sign Answer Date Recorded Within the past 12 months, y ou worried that your food would run out before you got the money to buy more. Patient declined Within the past 12 months, t he food you bought just didn't last and you didn't have money to get more. Patient declined PRAPARE - Transportation Answer Date Re corded In the past 12 months, has l ack of transportation kept you from medical appointments or from getting medications? No 05/30 In the past 12 months, has l ack of transportation kept you from meetings, work, or from getting things needed for daily living? No 06/19/2025 Housing Stability Vital Sign Answer Anthony e Recorded In the last 12 months, was t here a time when you were not able to pay the mortgage or rent on time? No 06/19/2025 Number of Times Moved in the Last Year Not on fi le 06/19/2025 At any time in the [facility], were you homeless or living in a correction (including now)? No 06/19/2025 Comments No Sex and Gender Information Value Date Recorded Sex Assigned at Female 12/19/2024 8:00 AM DOLL REPAIRER Legal Sex Female 3:25 PM CDT Gender Identity Female 12/19/2024 8:00 AM DOLL REPAIRER Sexual Orientation Straight 12/19/2024 8: 00 AM DOLL REPAIRER Last Filed Vital Signs Vital Sign Reading Time Taken Comments Blood Pressure 127/79 06/19/2025 10:04 AM CDT Pulse 90 06/19/2025 9:58 AM CDT Temperature 37 C (98.6 F) 06/19/2025 9:58 AM CDT Respiratory Rate 16 06/19/2025 9:58 AM CDT Oxygen Saturation 98% 06/19/2025 9:58 AM CDT Inhaled Oxygen Concentration - - Weight 103.7 kg (228 lb 9.6 oz) 06/19/2025 9:58 AM CDT Height 167.6 cm (5' 6) 06/19/2025 9:58 AM CDT Body Mass Index 36.9 06/19/2025 9:58 AM CDT Plan of Treatment Upcoming Encounters Date Type Department Care Team (Late st Contact Info) Description 10/16/2025 10:00 AM DOLL REPAIRER Office Visit [facility] [address] [address] [address] [place] [address] Esdras Herbert MD [address] [place] [address], [place] [address] Health Maintenance Due Date Last Done Comments COVID-19 Vaccine ( season) 2025 07/30/2023, 07/19/2023, 09/09/2022, Additional history exists Influenza Adult (#1) 2025 07/30/2023, 07/19/2023, 09/09/2022, Additional history exists Annual Physical 06/19/2026 06/19/2025, 05/29, 04/17/2023 Cervical Cancer Screening Pap Smear (Age 21 to 29) Every 3 Years 02/10/2028 02/09/2025, 05/07/2023, 05/07/2023 Cervical Cancer Screening 02/10/2028 DTaP, Tdap and Td Vaccines (6 - Td or Tdap) 12/03/2032 12/03/2022, 09/03/2019, 04/06/2010, Additional history exists Hepatitis B Vaccines Completed 01/02/2000, 1996, 1996, Additional history exists Hepatitis A Vaccines Completed 04/18/2011, 04/06/20 10 HPV Vaccines Completed 08/21/2011, 03/30, 04/06/2010 Meningococcal Vaccine Completed 04/23/2014, 010 Hepatitis C Completed 04/17/2023, 07/25/2022 PHQ-2 (Physician Perry) Completed 06/19/2025 Meningococcal B Vaccine Aged Out No l onger eligible based on patient's age to complete this topic Pneumococcal Vaccine: Pediatrics (0 to 5 Years) and At-Risk Patients (6 to 49 Years) Aged Out No longer eligible based on patient's age to complete this topic RSV Immunizations Under 20 Months Aged Out No longer eligible based on patient's age to complete this topic Procedures Procedure Name Priority Date/Time Associated Diagnosis Comments HEMOGLOBIN, GLYCOSYLATED Routine 06/19/2025 10:23 AM CDT Annual physical exam General medical exam Drug therapy TSH W/REFLEX Routine 06/19/2025 10:23 AM CDT Annual physical exam General medical exam Drug therapy LIPID PANEL Routine 06/19/2025 10:23 AM CDT Annual physical exam General medical exam Drug therapy COMPREHENSIVE METABOLIC PANEL Routine 06/19/2025 10:23 AM CDT Annual physical exam General medical exam Drug therapy CBC W/DIFF AUTOMATED Routine 06/19/2025 10:23 AM CDT Annual physical exam General medical exam Drug therapy COLLECTION VENOUS BLOOD VENIPUNCTURE Routine 06/19/2025 10:22 AM CDT Annual physical exam General medical exam Drug therapy REMOVE IMPACTED CERUMEN INSTRUMENTATION UNILAT Routine 06/19/2025 10:00 AM CDT Bilateral impacted cerumen URINALYSIS AUTO DIP Routine 06/19/2025 Annual physical exam General medical exam Drug therapy OUTSIDE CYTOPATH CERV/VAG INTERPRET (PAP) 02/09/2025 HEPATITIS C ANTIBODY Routine 04/17/2023 1:27 PM CDT Anemia, unspecified type from Last 3 Months or Most Recently Relevant to Health Maintenance Results * TSH W/REFLEX (06/19/2025 10:23 AM CDT) Pathologist [facility] TSH 1.382 0.358 - 3.740 uIU/ML 06/19/2025 8:03 PM CDT [facility] 06/19/2025 10:2 3 AM CDT us Esdras Herbert MD LABORATORY Final Result [facility] [address] [place] [address], * HEMOGLOBIN, GLYCOSYLATED (06/19/2025 10:23 AM CDT) HGB A1C 4.8 4.5 - 6.2 % 06/20/2025 11:34 AM CDT [facility] ESTIMATED AVG GLUCOSE 91 74 - 106 MG/DL 06/20/2025 11:34 AM CDT [facility] 06/19/2025 10:2 3 AM CDT Esdras Herbert MD LABORATORY Final Result [facility] [place] [address] [place] [address], * (ABNORMAL) COMPREHENSIVE METABOLIC PANEL (06/19/2025 10:23 AM CDT) SODIUM S/P/B 141 136 - 145 MMOL/L 06/19/2025 8:03 PM CDT [facility] POTASSIUM S/P/B 3.6 3.5 - 5.1 MMOL/L 06/19/2025 8:03 PM CDT [facility] CHLORIDE S/P/B 103 98 - 107 MMOL/L 06/19/2025 8:03 PM CDT [facility] CO2 26.9 21 - 32 MMOL/L 06/19/2025 8:03 PM CDT [facility] GLUCOSE 93 70 - 99 MG/DL 06/19/2025 8:03 PM CDT [facility] BUN 17 7 - 18 MG/DL 06/19/2025 8:03 PM CDT [facility] CREATININE S/P/B 0.72 0.55 - 1.02 MG/DL 06/19/2025 8:03 PM CDT [facility] CALCIUM S/P/B 9.2 8.4 - 10.5 MG/DL 06/19/2025 8:03 PM CDT [facility] BILIRUBIN TOTAL S/P/B 0.5 0.2 - 1.0 MG/DL 06/19/2025 8:03 PM CDT [facility] ALKALINE PHOSPHATASE S/P/B 81 37 - 98 U/L 06/19/2025 8:03 PM T [facility] AST 14(L) 15 - 37 U/L 06/19/2025 8:03 PM T [facility] ALT 20 14 - 59 U/L 06/19/2025 8:03 PM T [facility] TOTAL PROTEIN S/P/B 8.6(H) 6.4 - 8.2 G/DL 06/19/2025 8:03 [facility] ALBUMIN S/P/B 4.1 3.4 - 5.0 G/DL 06/19/2025 8:03 [facility] ANION GAP 11.1 5 - 15 MMOL/L 06/19/2025 8:03 PM T [facility] Comment:REFERENCE RANGE NOT ESTABLISHED OSMOLALITY (CALC) 293 MOSM/KG 025 8:03 PM T [facility] Comment:REFERENCE RANGE NOT ESTABLISHED GFR ESTIMATE >90 >90 ML/MIN/1. 73 M2 06/19/2025 8:03 PM T [facility] GFR NOTES GFR REFERENCE S: 06/19/2025 8:03 [facility] Comment: THE ESTIMATED GFR IS CALCULATED USING THE 2020 CKD-EPI EQUATION. THE FOLLOWING CATEGORIES FOR GRADING RENAL FUNCTION ARE RECOMMENDED BY THE INTERNATIONAL SOCIETY OF NEPHROLOGY (KDIGO 2012 CLINICAL PRACTICE GUIDELINE). G1,NORMAL OR HIGH: >89 ml/min/1.73 m2 G2,MILDLY DECREASED: 60-89 ml/min/1.73 m2 G3A,MILDLY TO MODERATELY DECREASED: 45-59 ml/min/1.73 m2 G3B,MODERATELY TO SEVERELY DECREASED: 30-44 ml/min/1.73 m2 G4,SEVERELY DECREASED: 15-29 ml/min/1.73 m2 G5,KIDNEY FAILURE: <15 ml/min/1.73 m2 06/19/2025 10:2 3 AM CDT us Nueki Naate MD LABORATORY Final Result [facility] [place] [address] [address] [place] [address], [place] [phone] * (ABNORMAL) LIPID PANEL (06/19/2025 10:23 AM CDT) CHOLESTEROL 181 <200 MG/DL 06/19/2025 8:03 PM CDT [facility] TRIGLYCERIDES 79 <150 MG/DL 06/19/2025 8:03 PM CDT [facility] HDL 54 >40 MG/DL 06/19/2025 8:03 PM CDT [facility] LDL-C 111(H) <100 MG/DL 06/19/2025 8:03 PM CDT [facility] VLDL CALCULATION 16 5 - 28 MG/DL 06/19/2025 8:03 PM CDT [facility] CHOL/HDL RATIO 3.4 0.0 - 4.0 06/19/2025 8:03 PM CDT [facility] LDL/HDL 2.1 0.41 - 2.13 06/19/2025 8:03 PM CDT [facility] NON HDL CHOLESTEROL 127 <140 MG/DL 06/19/2025 8:03 PM CDT [facility] 06/19/2025 10:2 3 AM CDT Esdras Herbert MD LABORATORY Final Result [facility] [place] [address] [place] [address], [place] [phone] * (ABNORMAL) CBC W/DIFF AUTOMATED (06/19/2025 10:23 AM CDT) WBC 11.25(H) 4.00 - 10.80 x10'3/uL 06/19/2025 7:42 PM CDT [facility] RBC 4.47 4.10 - 5.40 x10'6/uL 06/19/2025 7:42 PM CDT [facility] HGB 13.7 12.0 - 16.0 G/DL 06/19/2025 7:42 PM CDT [facility] HCT 41.1 36.0 - 47.0 % 06/19/2025 7:42 PM CDT [facility] MCV 91.9 78.0 - 100.0 FL 06/19/2025 7:42 PM [facility] MCH 30.6 27.0 - 31.0 PG 06/19/2025 7:42 PM CDT [facility] MCHC 33.3 33.0 - 36.0 G/DL 06/19/2025 7:42 PM CDT [facility] RDW 11.7 11.5 - 14.5 % 06/19/2025 7:42 PM CDT [facility] PLT 360(H) 150 - 350 x10'3/uL 06/19/2025 7:42 PM CDT [facility] MPV 9.7 7.4 - 10.4 FL 06/19/2025 7:42 PM CDT [facility] DIFFERENTIAL TYPE AUTOMATED DIFFERENTIAL 06/19/2025 7:42 PM CDT [facility] NEUTROPHILS % 56.4 % 06/19/2025 7:42 PM CDT [facility] LYMPHOCYTES % 35.8 % 06/19/2025 7:42 PM CDT [facility] MONOCYTES % 3.6 % 06/19/2025 7:42 PM CDT [facility] EOSINOPHILS % 3.7 % 06/19/2025 7:42 PM CDT [facility] BASOPHILS % 0.3 % 06/19/2025 7:42 PM CDT [facility] IMMATURE GRANS % 0.2 % 06/19/2025 7:42 PM CDT [facility] ABS. NEUTROPHILS 6.35 1.60 - 8.30 x10'3/uL 06/19/2025 7:42 PM CDT [facility] ABS. LYMPHOCYTES 4.03 0.80 - 4.70 x10'3/uL 06/19/2025 7:42 PM CDT [facility] ABS. MONOCYTES 0.40 0.00 - 1.50 x10'3/uL 06/19/2025 7:42 PM CDT [facility] ABS. EOSINOPHILS 0.42(H) 0.00 - 0.40 x10'3/uL 06/19/2025 7:42 PM CDT [facility] ABS. BASOPHILS 0.03 0.00 - 0.20 x10'3/uL 06/19/2025 7:42 PM CDT [facility] ABS. IMMATURE GRANULOCYTES 0.02 0.00 - 0.03 x10'3/uL 06/19/2025 7:42 PM CDT [facility] 06/19/2025 10:2 3 AM CDT Esdras Herbert MD LABORATORY Final Result Performing Organization Address City/State/[facility] Co de Phone Number [facility] [address] [place] [address], * REMOVE IMPACTED CERUMEN INSTRUMENTATION UNILAT (06/19/2025 10:00 AM CDT) Narrative Esdras Herbert MD - 06/19/2025 10:00 AM CDT Esdras Herbert MD 06/19/2025 10:51 AM *Ear Cerumen Removal Date/Time: 06/19/2025 10:00 AM Performed by: Esdras Herbert MD Authorized by: Esdras Herbert MD Location details: right ear and left ear Patient tolerance: patient tolerated the procedure well with no immediate complications Comments: Impacted wax removed bilaterally. Procedure type: curette Esdras Herbert MD PROCEDURE/MINOR SURGICAL ORDERAB LES Final Result * (ABNORMAL) URINALYSIS AUTO DIP (06/19/2025) COLOR (U) YELLOW YELLOW [address], [place] TRANSPARENCY CLEAR CLEAR [address], [place] GLUCOSE (U) NEGATIVE NEGATIVE MG/DL [facility], [place] BILIRUBIN (U) NEGATIVE NEGATIVE [address], [place] STATION KETONES MG/DL (U) 5 (TRACE)(A) NEGATIVE MG/DL [facility], [place] SPECIFIC GRAVITY (U) 1.020 1.001 - 1.035 [address], [place] STATION BLOOD (U) NEGATIVE NEGATIVE [facility], [place] ST[place] U PH 7.5 5.0 - 9.0 [address], [place] PROTEIN (U) TRACE(A) NEGATIVE mg/dL [address], [place] STATION UROBILINOGEN 4.0(A) 0.2 - 1.0 EU/dL = mg/dL [facility], [place] STATION NITRITES NEGATIVE NEGATIVE MG/DL [facility], [place] ST[place] LEUKOCYTES (U) 1+ (SMALL)(A) NEGATIVE [facility], [place] URINE SPECIMEN OBTAINED BY CLEAN CATCH PROCEDURE / Unknown 06/19/2025 Result [facility] Esdras Herbert MD URINE ORDERABLES Final Result [facility], [place] [address] [place] [address], * PAP SMEAR WITH HPV (02/09/2025) 02/09/2025 [facility] Scanned SCANNING Final Resu lt * HEPATITIS C ANTIBODY ([facility] ONLY) (04/17/2023 1:27 PM CDT) HEPATITIS C AB NON-REACTI VE NON-REACT JOCE 04/18/2023 6:22 PM CDT [facility] Comment: ANTIBODIES TO HCV NOT DETECTED. DOES NOT EXCLUDE THE POSSIBILITY OF EXPOSURE TO HCV. 04/17/2023 1:27 PM CDT Esdras Herbert MD LABORATORY Final Result [facility] [address] [place] [address], [place] [phone] [id number] from Last 3 Months or Most Recently Relevant to Health Maintenance Insurance [facility] Care Teams Store Hand Relationship Specialty Start Date End Date Esdras Herbert MD [address] [facility] [address] [place] [id number] PCP - General INTERNAL MEDICINE 04/14/23
--- OUTSIDE RECORDS SUMMARY | 2025-08-12 18:54 | XMS_ITS | Clinical Summary ---
Author Organization [facility] Address [address] [place] [address] Phone Care Team Providers Care Records Section Supervisor Name Role Phone Esdras Herbert MD Primary Care Provider [phone] Allergies No known active allergies Medications losartan-hydroc hlorothiazide (HYZAAR) 100-12.5 MG Tablet Take 1 Tablet by mouth daily. 4 Active Topiramate 50 MG Tablet Take one tablet daily for the next one month then change to one tablet twice 4 Active ferrous sulfate 325 (65 Fe) MG Tablet Take 325 mg by mouth. 3 Active etonogestrel (Nexplanon) 68 MG Implant Inject 1 implant every day by subcutaneous route. 3 Active Active Problems No known active problems Immunizations Immunization Administration Dates Next Due COVID-19, MRNA, LNP-S, BIVAL ENT , PFIZER, 30 MCG/0.3 ML (12+ Y/O) 07/30/2023 Influenza Vaccine, MDCK,quad rivalent, pres free 07/19/2023,09/09/2022 Influenza Vaccine, Quadrivalent, PF 10/25/2021 Influenza Vaccine,unspecifie d Formulation 07/30/2023,07/19/2023,09/09/2022,2020,08/18/2019 TDAP Vaccine 12/03/2022 Family History Medical History Relation Name Comments High Cholesterol Father Hypertension Mother Relation Name Status Comments Father Alive Mother Alive Sister Alive Social History Tobacco Use Types Packs/Day Years Used Date Smoking Tobacco: Never Smokeless Tobacco: Never Tobacco Cessation:Counseling Given: Not Answered Alcohol Use Standard Drinks/Week Comments Yes 0 (1 standard drink = 0.6 oz pur e alcohol) occasionally Comments Unknown Sex and Gender Information Value Date Recorded Sex Assigned at Not on file Legal Sex Female 12:25 PM CDT Gender Identity Not on file Sexual Orientation Not on file Last Filed Vital Signs Vital Sign Reading Time Taken Comments Blood Pressure 118/78 03/20/2024 8:13 AM CDT Pulse 80 03/20/2024 8:13 AM CDT Temperature 36.9 C (98.4 F) 03/20/2024 8:13 AM CDT Respiratory Rate 18 03/20/2024 8:13 AM CDT Oxygen Saturation 99% 03/20/2024 8:13 AM CDT Inhaled Oxygen Concentration - - Weight 112.5 kg (248 lb 1.6 oz) 03/20/2024 8:13 AM CDT Height 167.6 cm (5' 6) 03/20/2024 8:13 AM CDT Body Mass Index 40.04 03/20/2024 8:13 AM CDT Plan of Treatment Health Maintenance Due Date Last Done Comments Pap Smear 2017 Influenza Immunization (#1) 06/29/202511/2022, 07/19/2023, 07/19/2023, Additional history exists SARS-COV-2 Immunization ( season) 2025 07/30/2023, 07/19/2023, 09/09/2022, Additional history exists Td Immunization Every 10 Years (Adults With 1 Tdap) 12/03/2032 12/03/2022, 09/03/2019, 04/06/2010 Respiratory Syncytial Virus (RSV) Immunization (Adult) (1 - 1-dose 75+ series) 2071 Hepatitis B Immunization Completed , 1996, 1996, Additional history exists Human Papillomavirus (HPV) Immunization Completed 08/21/2011, 04/18/2011, 04/06/2010 Meningococcal Immunization (ACWY) Completed 04/23/2014, 04/06/2010 TdaP Immunization Discontinued 12/03/2022, , 04/06/2010 Hepatitis C Virus (HCV) Screening Completed 04/17/2023, 07/25/2022 Pneumococcal Immunization Combined Aged Out No longer eligible based on patient's age to complete this topic Rotavirus Immunization Aged Out No lo nger eligible based on patient's age to complete this topic Insurance [place] Care Teams Records Section Supervisor Relationship Specialty Start Date End Date Esdras Herbert MD [address] [address] PCP - General Internal Medicine 02/18/24
--- OUTSIDE RECORDS SUMMARY | 2025-08-12 18:54 | XMS_ITS | Encounter Summary ---
Author Organization [facility] Address [address] [place] [address] Care Team Providers Care Corn Husk Baler Name Role Phone Esdras Herbert MD Primary Care Provider [phone] Encounter Details Date Type Department Care Team (Latest Contact Info) Description 06/21/2025 Results Follow-Up [facility] Multispecialty Care - [address] [address] [address] [address] [place], [place] [id number] Esdras Herbert MD [address] [place] [address] [address] [place] [address] CBC W/DIFF AUTOMATED, COMPREHENSIVE METABOLIC PANEL, LIPID PANEL, Additional followed-up results: 3 Social History Tobacco Use Types Packs/Day Years [...] week 06/19/2025 How often do you attend [facility] or latter day services? Patient unable to answer 06/19/2025 Do you belong to any clubs o r organizations such as amish groups, unions, fraternal or athletic groups, or [...] Recorded Patient Health Questionnaire-2 Score 1 06/19/2025 [facility] Occupat ional Health - Occupational Stress Questionnaire Answer Date Recorded [...] any time in the past 12 m [facility], were you homeless or living in a retirement (including now)? No 06/19/2025 Comments No Sex and Gender Information Value Date Recorded Sex Assigned at Female 12/19/2024 8:00 AM ADJUNCT SPANISH INSTRUCTOR Legal Sex Female 3:25 PM CDT Gender Identity Female 12/19/2024 8:00 AM ADJUNCT SPANISH INSTRUCTOR Sexual Orientation Straight 12/19/2024 8: 00 AM ADJUNCT SPANISH INSTRUCTOR documented as of this encounter Plan of Treatment Upcoming Encounters Date Type Department Care Team (Late st Contact Info) Description 10/16/2025 10:00 AM ADJUNCT SPANISH INSTRUCTOR Office Visit [facility] Multispecialty Care - [address] [address] [address] [place] [address] Esdras Herbert MD [address] [place] [address] documented as of this encounter Visit Diagnoses Not on filedocumented in this encounter Additional Health Concerns Assessment Noted Time PHQ-9 Depression Total Score: 2 06/19/20 25 10:36 AM CDT documented as of this encounter Care Teams Corn Husk Baler Relationship Specialty Start Date End Date Esdras Herbert MD [address] [address] PCP - General INTERNAL MEDICINE 04/14/23 documented as of this encounter
--- OUTSIDE RECORDS SUMMARY | 2025-08-12 18:54 | XMS_ITS | Encounter Summary ---
Author Organization [facility] Address [address] [place] [address] Care Team Providers Care Sack Lifter Name Role Phone Esdras Herbert MD Primary Care Provider [phone] Encounter Details Date Type Department Care Team (Latest Contact Info) Description 02/12/2024 [employer] Message Enc [facility] Medical [facility] Multispecialty [facility] - [place] [address] [address] [address] [place] [address] Esdras Herbert MD [address] [place] [address] [address] [place] [address] Hematology Referral Social History Tobacco Use Types Packs/Day Years Used Date Smoking Tobacco: Never Smokeless Tobacco: Never Comments:Counseled by Dr. Lucinda tobias. Alcohol Use Standard Drinks/Week Comments Yes 0 (1 standard drink = 0.6 oz pur e alcohol) socially PHQ-2 Answer Date Recorded Patient Health Questionnaire-2 Score 0 11/13/2023 Comments No Sex and Gender Information Value Date Recorded Sex Assigned at Female 12/19/2024 8:00 AM PRODUCT OPERATIONS ASSOCIATE Legal Sex Female 3:25 PM CDT Gender Identity Female 12/19/2024 8:00 AM PRODUCT OPERATIONS ASSOCIATE Sexual Orientation Straight 12/19/2024 8: 00 AM PRODUCT OPERATIONS ASSOCIATE documented as of this encounter Plan of Treatment Upcoming Encounters Date Type Department Care Team (Late st Contact Info) Description 10/16/2025 10:00 AM PRODUCT OPERATIONS ASSOCIATE Office Visit [facility] Medical [facility] Multispecialty Care - [address] [place] [address] Esdras Herbert MD [address] [place] [address] 157 [place] [address] documented as of this encounter Visit Diagnoses Not on filedocumented in this encounter Additional Health Concerns Assessment Noted Time PHQ-9 Depression Total Score: 2 11/13/19 24 10:16 AM PRODUCT OPERATIONS ASSOCIATE documented as of this encounter Care Teams Sack Lifter Relationship Specialty Start Date End Date Esdras Herbert MD [address] [address] PCP - General INTERNAL MEDICINE 04/14/23 documented as of this encounter
--- OUTSIDE RECORDS SUMMARY | 2025-08-12 18:54 | XMS_ITS | Encounter Summary ---
Author Organization [facility] Address [address] [place] [address] Care Team Providers Care Claim Service Representative Name Role Phone Esdras Herbert MD Primary Care Provider [phone] Encounter Details Date Type Department Care Team (Latest Contact Info) Description 04/17/2023 [employer] Message Enc [facility] Multispecialty Care - [address] [address] [address] [place], [place] [id number] Esdras Herbert MD [address] [place] [address] [address] [place], [place] [id number] Weight Loss Injection Name? Social History Tobacco Use Types Packs/Day Years Used Date Smoking Tobacco: Never Smokeless Tobacco: Never Comments:Counseled by Dr. Lucinda tobias. Alcohol Use Standard Drinks/Week Comments Not Currently 0 (1 standard drink = 0.6 oz pur e alcohol) PHQ-2 Answer Date Recorded Patient Health Questionnaire-2 Score 0 04/17/2023 Comments No Sex and Gender Information Value Date Recorded Sex Assigned at Female 12/19/2024 8:00 AM HYDRATE THICKENER OPERATOR Legal Sex Female 3:25 PM CDT Gender Identity Female 12/19/2024 8:00 AM HYDRATE THICKENER OPERATOR Sexual Orientation Straight 12/19/2024 8: 00 AM HYDRATE THICKENER OPERATOR documented as of this encounter Functional Status * Over the past 2 weeks, how often have you been bothered by any of the following problems? Question Answer Date of Assessment Author Status Little interest or pleasure in doing things Not at all 04/17/2023 2:09 PM CDT Jo Padron MA Active Feeling down, depressed, or hopeless Not at all 04/17/2023 2:09 PM CDT Juana Padron MA Active Patient Health Questionnaire-2 Score 0 04/17/2023 2:09 PM CDT Karma Padron MA Active * If you checked off any problems on this questionnaire so far, Question Answer Date of Assessment Author Status How difficult have these problems made it for you to do your work, take care of things at home, or get along with other people? Not difficult at all 04/17/2023 2:09 PM CDJo Tinajero MA Active * Over the last 2 weeks, how often have you been bothered by any of the following problems? Question Answer Date of Assessment Author Status Feeling nervous, anxious, or on edge 0 04/17/2023 2:09 PM Jo Guevara MA Ac tive Not being able to stop or control worrying 0 04/17/2023 2:09 PM Jo Guevara MA A ctive Worrying too much about different things 0 04/17/2023 2:09 PM Jo Guevara MA A ctive Trouble relaxing 0 04/17/2023 2:09 PM CDT Jo Carpenter MA Active Being so restless that it is hard to sit still 0 04/17/2023 2:09 PM Jo Guevara MA Active Becoming easily annoyed or irritable 0 04/17/2023 2:09 PM CDT Jo Padron MA Ac tikhalida Feeling afraid as if something awful might happen 0 04/17/2023 2:09 PM Jo Guevara MA Ac tive TADEO-7 Total Score 0 04/17/2023 2:09 PM CDT Jo Lobato MA Active documented as of this encounter Plan of Treatment Upcoming Encounters Date Type Department Care Team (Late st Contact Info) Description 10/16/2025 10:00 AM HYDRATE THICKENER OPERATOR Office Visit [facility] Multispecialty Care - [address] [address] [address] [address] [place] [address] Esdras Herbert MD [address] [place] [address] [address] [place] [address] documented as of this encounter Visit Diagnoses Not on filedocumented in this encounter Care Teams Claim Service Representative Relationship Specialty Start Date End Date Esdras Herbert MD [address] [address] PCP - General INTERNAL MEDICINE 04/14/23 documented as of this encounter
--- OUTSIDE RECORDS SUMMARY | 2025-08-12 18:54 | XMS_ITS | Encounter Summary ---
Author Organization [facility] Address [address] [place] [address] Care Team Providers Care Hand Candle Dipper Name Role Phone Esdras Herbert MD Primary Care Provider [phone] Encounter Details Date Type Department Care Team (Late st Contact Info) Description 11/28/2023 [employer] Message Enc [address] [address] [address] [place] [address] [facility] Provider Trulicity Social History Tobacco Use Types Packs/Day Years Used Date Smoking Tobacco: Never Smokeless Tobacco: Never Comments:Counseled by Dr. Lucinda tobias. Alcohol Use Standard Drinks/Week Comments Yes 0 (1 standard drink = 0.6 oz pur e alcohol) socially PHQ-2 Answer Date Recorded Patient Health Questionnaire-2 Score 0 11/13/2023 Comments No Sex and Gender Information Value Date Recorded Sex Assigned at Female 12/19/2024 8:00 AM WHOLESALE ACCOUNT EXECUTIVE Legal Sex Female 3:25 PM CDT Gender Identity Female 12/19/2024 8:00 AM WHOLESALE ACCOUNT EXECUTIVE Sexual Orientation Straight 12/19/2024 8: 00 AM WHOLESALE ACCOUNT EXECUTIVE documented as of this encounter Plan of Treatment Upcoming Encounters Date Type Department Care Team (Late st Contact Info) Description 10/16/2025 10:00 AM WHOLESALE ACCOUNT EXECUTIVE Office Visit [address] [place] [address] Esdras Herbert MD [address] [place] [address] documented as of this encounter Visit Diagnoses Not on filedocumented in this encounter Additional Health Concerns Assessment Noted Time PHQ-9 Depression Total Score: 2 11/13/19 24 10:16 AM WHOLESALE ACCOUNT EXECUTIVE documented as of this encounter Care Teams Hand Candle Dipper Relationship Specialty Start Date End Date Esrdas Herbert MD [address] [address] PCP - General INTERNAL MEDICINE 04/14/23 documented as of this encounter
--- OUTSIDE RECORDS SUMMARY | 2025-08-12 18:54 | XMS_ITS | Encounter Summary ---
Author Organization [facility] Address [address] [place] [address] Care Team Providers Care Sprayer Machine Name Role Phone Esdras Herbert MD Primary Care Provider [phone] Encounter Details Date Type Department Care Team (Latest Contact Info) Description 11/13/2023 [employer] Message Enc [facility] Multispecialty Care - [place] [address] [address] [address] [place], [place] [id number] Esdras Herbert MD [address] [place] [address] [address] [place], [place] [id number] [employer] - insurance Social History Tobacco Use Types Packs/Day Years Used Date Smoking Tobacco: Never Smokeless Tobacco: Never Comments:Counseled by Dr. Lucinda tobias. Alcohol Use Standard Drinks/Week Comments Yes 0 (1 standard drink = 0.6 oz pur e alcohol) socially PHQ-2 Answer Date Recorded Patient Health Questionnaire-2 Score 0 11/13/2023 Comments No Sex and Gender Information Value Date Recorded Sex Assigned at Female 12/19/2024 8:00 AM FLATWORK FINISHER HAND Legal Sex Female 3:25 PM CDT Gender Identity Female 12/19/2024 8:00 AM FLATWORK FINISHER HAND Sexual Orientation Straight 12/19/2024 8: 00 AM FLATWORK FINISHER HAND documented as of this encounter Functional Status * Over the past 2 weeks, how often have you been bothered by any of the following problems? Question Answer Date of Assessment Author Status Little interest or pleasure in doing things Not at all 11/13/2023 10:32 AM FLATWORK FINISHER HAND Jo Padron MA Active Feeling down, depressed, or hopeless Not at all 11/13/2023 10:32 AM Cecilio Kwan MA Active Patient Health Questionnaire-2 Score 0 11/13/2023 10:32 AM Juana Kwan MA Active * Question Answer Date of Assessment Author Status Trouble falling or staying asleep, or sleeping too much Several days 11/13/2023 10:16 AM Fely Cardoso MA Active Feeling tired or having little energy Several days 11/13/2023 10:16 AM Fely Cardoso MA Active Poor appetite or overeating Not at all 11/13/2023 10:16 AM Fely Cardoso MA Active Feeling bad about yourself - or that you are a failure or have let yourself or your family down Not at all 11/13/2023 10:16 AM Fely Cardoso MA Active Trouble concentrating on things, such as reading the newspaper or watching television Not at all 11/13/2023 10:16 AM Fely Cardoso MA Active Moving or speaking so slowly that other people could have noticed? Or the opposite - being so fidgety or restless that you have been moving around a lot more than usual. Not at all 11/13/2023 10:16 AM Fely Cardoso MA Active Thoughts that you would be better off or hurting yourself in some way Not at all 11/13/2023 10:16 AM Fely Cardoso MA Active Patient Health Questionnaire-9 Score 2 11/13/2023 10:16 AM Fely Cardoso MA Active * If you checked off any problems on this questionnaire so far, Question Answer Date of Assessment Author Status How difficult have these problems made it for you to do your work, take care of things at home, or get along with other people? Not difficult at all 11/13/2023 10:32 AM Jo Kwan MA Active * Over the last 2 weeks, how often have you been bothered by any of the following problems? Question Answer Date of Assessment Author Status Feeling nervous, anxious, or on edge 0 11/13/2023 10:32 AM Jo Kwan MA A ctive Not being able to stop or control worrying 0 11/13/2023 10:32 AM FLATWORK FINISHER HAND Jo Padron MA Active Worrying too much about different things 0 11/13/2023 10:32 AM FLATWORK FINISHER HAND Jo Padron MA Active Trouble relaxing 0 11/13/2023 10:32 AM FLATWORK FINISHER HAND Jo Lobato MA Active Being so restless that it is hard to sit still 0 11/13/2023 10:32 AM FLATWORK FINISHER HAND Jo Padron MA Active Becoming easily annoyed or irritable 0 11/13/2023 10:32 AM FLATWORK FINISHER HAND Jo Padron MA A ctive Feeling afraid as if something awful might happen 0 11/13/2023 10:32 AM FLATWORK FINISHER HAND Jo Padron MA A ctive TADEO-7 Total Score 0 11/13/2023 10:32 AM FLATWORK FINISHER HAND Balr Jo florian MA Active documented as of this encounter Plan of Treatment Upcoming Encounters Date Type Department Care Team (Late st Contact Info) Description 10/16/2025 10:00 AM FLATWORK FINISHER HAND Office Visit [facility] Multispecialty Care - [place] [address] [address] [address] [place] [address] Esdras Herbert MD [address] [place] [address] documented as of this encounter Visit Diagnoses Not on filedocumented in this encounter Additional Health Concerns Assessment Noted Time PHQ-9 Depression Total Score: 2 11/13/19 24 10:16 AM FLATWORK FINISHER HAND documented as of this encounter Care Teams Sprayer Machine Relationship Specialty Start Date End Date Esdras Herbert MD [address] [place] [address] PCP - General INTERNAL MEDICINE 04/14/23 documented as of this encounter
--- OUTSIDE RECORDS SUMMARY | 2025-08-12 18:54 | XMS_ITS | Encounter Summary ---
Author Organization [facility] Address [address] [place] [address] Care Team Providers Care Ticket Manager Name Role Phone Esdras Herbert MD Primary Care Provider [phone] Encounter Details Date Type Department Care Team (Late st Contact Info) Description 01/14/2024 [employer] Message Enc [address] [address] [address] [place] [address] Jeannine [facility] Provider test results Social History Tobacco Use Types Packs/Day Years Used Date Smoking Tobacco: Never Smokeless Tobacco: Never Comments:Counseled by Dr. Lucinda tobias. Alcohol Use Standard Drinks/Week Comments Yes 0 (1 standard drink = 0.6 oz pur e alcohol) socially PHQ-2 Answer Date Recorded Patient Health Questionnaire-2 Score 0 11/13/2023 Comments No Sex and Gender Information Value Date Recorded Sex Assigned at Female 12/19/2024 8:00 AM MATCH MAKER Legal Sex Female 3:25 PM CDT Gender Identity Female 12/19/2024 8:00 AM MATCH MAKER Sexual Orientation Straight 12/19/2024 8: 00 AM MATCH MAKER documented as of this encounter Plan of Treatment Upcoming Encounters Date Type Department Care Team (Late st Contact Info) Description 10/16/2025 10:00 AM MATCH MAKER Office Visit [address] [place] [address] Esdras Herbert MD [address] [place] [address] documented as of this encounter Visit Diagnoses Not on filedocumented in this encounter Additional Health Concerns Assessment Noted Time PHQ-9 Depression Total Score: 2 11/13/19 24 10:16 AM MATCH MAKER documented as of this encounter Care Teams Ticket Manager Relationship Specialty Start Date End Date Esdras Herbert MD [address] [address] PCP - General INTERNAL MEDICINE 04/14/23 documented as of this encounter
--- OUTSIDE RECORDS SUMMARY | 2025-08-12 18:54 | XMS_ITS | Clinical Summary ---
Author Organization [facility] Address [address] [place] [address] Care Team Providers Care Certified Green Building Engineer Name Role Phone Esdras Herbert MD Primary Care Provider [phone] Source Comments [facility],non-owned Affiliates and Associated Physician Practices is amultiple site organization consisting of ambulatory clinics and hospital sitesin [place], [place], [place] and [place]. This disclosure is being madepursuant to the Care Everywhere program and may not contain all information available regarding this patient. Last updated 18.[facility] Allergies No known active allergies Medications * Be aware that medications may not be up to date on this document. Alwaysverify current medications with the patient. topiramate (Topamax) 100 MG tablet Take 1 (one) tablet by mouth 2 times daily 5 Active losartan-hydroC HLOROthiazide (Hyzaar) 100-12.5 MG tablet Take 0.5 (one-half) tablet by mouth once daily 5 Active FeroSul 325 (65 Fe) MG tablet Take 1 (one) tablet by mouth daily with breakfast 5 Active Encounters Date Type Department Care Team Description 08/12/2025 10:18 AM CDT Hospital Encounter [facility] [place] [address] Jaylen Hancock, HEAD UP OPERATOR-RN ACLS 08/12/2025 Travel from Last 3 Months Immunizations Immunization Administration Dates Next Due Covid Pfizer primary monoval ent 12+ yr 0.3mL Purple cap 03/14/2021,02/18/2021 Social History Tobacco Use Types Packs/Day Years [...] Mass Index 34.46 08/12/2025 10:21 AM CDT Plan of Treatment Health Maintenance Due Date Last Done Comments HIV SCREENING 2011 HEPATITIS C SCREENING 06/03/2014 DTAP/TDAP/TD VACCINES (1 - Tdap) 2015 HEPATITIS B VACCINE (1 of 3 - 19+ 3-dose series) 2015 HPV VACCINE (1 - 3-dose SCDM series) 2023 ZOSTER VACCINE (1 of 2) 2046 COVID-19 VACCINE Completed 07/10/2025, 04/2024, 07/30/2023, Additional history exists INFLUENZA VACCINE Completed 07/10/2025, , 07/30/2023, Additional history exists DEPRESSION SCREENING Completed 08/12/2025 HIB VACCINE Aged Out No longer eligi ble based on patient's age to complete this topic MENINGOCOCCAL (Group B) VACCINE SHARED DECISION-MAKING Aged Out No longer eligible based on patient's age to complete this topic MENINGOCOCCAL GROUPS A/C/Y/W VACCINE Aged Out No longer eligible based on patient's age to complete this topic PNEUMOCOCCAL VACCINE Aged Out No long er eligible based on patient's age to complete this topic Procedures Procedure Name Priority Date/Time Associated Diagnosis Comments URINALYSIS - POCT (IP) URGENT CARE Routine 08/12/2025 10:33 AM CDT Right flank pain from Last 3 Months Results * (ABNORMAL) URINALYSIS - POCT (IP) URGENT CARE (08/12/2025 10:33 AM CDT) Glucose UA neg Negative [facility] Bilirubin UA trace Negative [facility] Ketone UA neg Negative [facility] Specific [place] UA POCT 1.015 1.000 - 1.030 [facility] Blood UA 3+ Negative [facility] pH UA 6.0 5.0 - 8.0 pH units [facility] Protein UA trace Negative [facility] Urobilinogen UA 0.2 0.2 - 1.0 EU/dL [facility] Nitrite UA neg Negative [facility] Leukocyte UA 1+ Negative [facility] QC Verified Yes Yes [facility] Urine URINE / Unknown 08/12/2025 1 0:33 AM CDT Jaylen Hancock HEAD UP OPERATOR-RN ACLS LAB - POINT OF CARE ORD ERABLES Final Result [facility] [address] [place] [address], [facility] [phone] from Last 3 Months Insurance Care Teams Certified Green Building Engineer Relationship Specialty Start Date End Date Esdras Herbert MD [address] [address] PCP - General Internal Medicine 08/12/25
--- OUTSIDE RECORDS SUMMARY | 2025-08-12 18:54 | XMS_ITS | Encounter Summary ---
Author Organization [facility] Address [address] [place] [address] Care Team Providers Care Die Repair Name Role Phone Esdras Herbert MD Primary Care Provider [phone] Encounter Details Date Type Department Care Team (Latest Contact Info) Description 08/12/2025 Travel Social History Tobacco Use Types Packs/Day Years Used Date Smoking Tobacco: Never Smokeless Tobacco: Never PHQ-2 Answer Date Recorded Patient Health Questionnaire-2 Score 0 08/12/2025 Comments No Sex and Gender Information Value Date Recorded Sex Assigned at Not on file Legal Sex Female 6:49 AM CDT Gender Identity Not on file Sexual Orientation Not on file documented as of this encounter Functional Status [...] Questionnaire -2 Score 0 08/12/2025 10:23 AM ALICET Rosita Hamlin RN documented as of this encounter Plan of Treatment Not on file documented as of this encounter Visit Diagnoses Not on filedocumented in this encounter Care Teams Die Repair Relationship Specialty Start Date End Date Esdras Herbert MD [address] [address] PCP - General Internal Medicine 08/12/25 documented as of this encounter
[2025-08-12 19:16] VITALS: BP 165/94; PULSE 94; RESP 18; TEMP 36.8; O2SAT 100
[2025-08-12 21:11] LABS: Hematocrit 38.8 % (37.0-47.0); Hemoglobin 12.9 g/dL (12.0-15.0); Immature Granulocyte Percent A 0.6 % (0-0.5); Lymphocytes Absolute Auto 2.43 K/mm3 (0.9-3.2); Mean Corpuscular HGB Conc 33.2 g/dl (32-36); Mean Corpuscular Hemoglobin 30.6 pg (26-34); Mean Corpuscular Volume 92.2 fl (80-100); Nucleated Red Blood Cells Absolute Auto 0.000 K/mm3 (0.0-0.012); Nucleated Red Blood Cells Perc 0.0 % (0.0-0.2); Platelet Count Result 289 k/mm3 (150-375); Red Blood Count 4.21 M/mm3 (4.2-5.4); White Blood Count 18.0 K/mm3 (4.5-10.0)
[2025-08-12 21:12] VITALS: RESP 16; O2SAT 99
[2025-08-12 21:19] LABS: Alanine Aminotransferase 14 U/L (6-35); Albumin Level 4.4 g/dL (3.5-5.1); Alkaline Phosphatase 74 U/L (38-126); Anion Gap 12 mmol/L (4-12); Aspartate Amino Transferase 23 U/L (14-36); Bilirubin,Total 0.7 mg/dL (0.2-1.3); Blood Urea Nitrogen 16 mg/dL (7-17); Calcium 9.2 mg/dL (8.4-10.2); Carbon Dioxide 18 mmol/L (22-30); Chloride 109 mmol/L (98-107); Estimated CRCL calculation 92 ml/min; Estimated Glomerular Filt Rate > 60; Glucose 113 mg/dL (65-110); Potassium 4.0 mmol/L (3.4-5.0); Sodium 139 mmol/L (137-145); Total Protein 8.6 g/dL (6.3-8.2)
[2025-08-12] MEDS: LACTATED RINGERS 1,000 ML 999 ML IV CONT (21:19)
[2025-08-12] MEDS: MORPHINE SULFATE (*CRX) 4 MG/ML INJ IV PUSH (21:20)
[2025-08-12 21:23] LABS: Add Urine Microscopic? YES; Appearance Urine Turbid (Clear); Glucose Urine UA Negative (Negative); Leukocyte Esterase Ur 2+ LEU/UL (Negative); Need Manual Microscopic Reviewed; Nitrate Urine Negative (Negative); Non Pathogenic Casts 0-2; Specific Grav Ur 1.040 (1.001-1.035)
[2025-08-12 21:31] LABS: Pregnancy On Board Control Positive
--- NOTE | 2025-08-12 21:44 | ED_ITS ---
HPI - Back Pain/Injury General Chief Complaint: Back Pain/Injury Stated Complaint: r/o kidney stone from Time Seen by Provider: 08/12/25 20:29 History of Present Illness HPI Narrative: 30-year-old female with no pertinent past medical history presenting to the emergency depart with right-sided flank pain that started suddenly while she was driving to work. Started suddenly and gradually worsened causing some nauseousness. Went to urgent care as slowly had improvement in pain. She took a ibuprofen which alleviated the pain down to a 3/10. Urgent Care urinalysis showed some blood and concern for a kidney stone so she was referred to the ER for evaluation. On arrival she states her pain is starting to creep back up again localized to the right flank with no radiation. History of appendectomy and section. No nausea presently no upper abdominal pain, no frontal abdominal pain or complaints such as vaginal bleeding dysuria or hematuria. No chance of . No history of kidney stones but strong family history of them. Was otherwise in her normal state of health, denies any recent injuries or illnesses. Related Data Home Medications ?Medication ?Instructions ?Recorded ?Confirmed ?Last Taken ?Type nifedipine 30 mg tablet,extended mg PO 01/19/2301/19 09:00 History release 24 hr Allergies Allergy/AdvReac Type Severity Reaction Status Date / Time No Known Allergies Allergy Verified 08/12/25 18:52 Review of Systems 2 Review of Systems: As reviewed above in HPI [facility] Past Medical History Medical History HTN (hypertension) Morbid obesity Surgical History Surgical History History of appendectomy Family History Family History Mother Hypertension Grandparent Diabetes mellitus Social History Social History Smoking status: Never smoker Substance use: never Lack of Transportation: No Lack of Food: Never True Current Housing: I Have Housing Concerned About Future Housing: No Difficulty Paying Gas/Electric Bills: No Difficulty Paying for Meds: No Currently Unemployed: No Education: Bachelor's Degree Difficulty w/ Childcare or Family Care: No Spiritual care concerns: No Exam 2 Narrative: GENERAL: [Well-appearing, well-nourished, and in no acute distress.] HEAD: [Normocephalic, atraumatic.] EYES: [PERRLA and EOMI.] ENT: Nares clear, no rhinorrhea or epistaxis. Mucous membranes moist. NECK: Supple. CHEST: [Clear to auscultation. No respiratory distress.] HEART: [Regular rate and rhythm]. No murmur heard. [Normal peripheral pulses.] ABDOMEN: Soft and nondistended, tenderness to palpation the right flank with CVA tenderness but no overlying skin changes or bruising. No upper abdominal or lower abdominal tenderness reproducible. EXTREMITIES: Normal range of motion. [No edema.] SKIN: Warm, dry, no rash. NEURO: [No focal deficits]. Alert and oriented [x3.] PSYCH: [Normal mood and affect.] Course Vital Signs Vital signs: Vital Signs Temperature 36.8 C 08/12/25 19:16 Pulse Rate 94 08/12/25 19:16 Respiratory Rate 18 08/12/25 19:16 Blood Pressure 165/94 H 08/12/25 19:16 Pulse Oximetry 100 08/12/25 19:16 Oxygen Delivery Room Air 08/12/25 19:16 Temperature 36.8 C 08/12/25 19:16 Pulse Rate 94 08/12/25 19:16 Respiratory Rate 16 08/12/25 21:12 Blood Pressure 165/94 H 08/12/25 19:16 Pulse Oximetry 99 08/12/25 21:12 Oxygen Delivery Room Air 08/12/25 19:16 MDM - Back Pain/Injury MDM Narrative Medical decision making narrative: 30-year-old female with no pertinent past medical history presenting to the emergency depart with right-sided flank pain that started suddenly while she was driving to work. Started suddenly and gradually worsened causing some nauseousness. Went to urgent care as slowly had improvement in pain. She took a ibuprofen which alleviated the pain down to a 3/10. Urgent Care urinalysis showed some blood and concern for a kidney stone so she was referred to the ER for evaluation. On arrival she states her pain is starting to creep back up again localized to the right flank with no radiation. History of appendectomy and section. No nausea presently no upper abdominal pain, no frontal abdominal pain or complaints such as vaginal bleeding dysuria or hematuria. No chance of . No history of kidney stones but strong family history of them. Was otherwise in her normal state of health, denies any recent injuries or illnesses. Patient has reproducible CVA tenderness in the right side. Mildly hypertensive but no tachycardia, fever, hypoxemia and she is otherwise well-appearing. Suspect renal colic, kidney stone, UTI, pyelonephritis. Low suspicion other intra-abdominal process. CT scan without contrast ordered for further evaluation. She was given morphine and fluids for analgesia and laboratory studies and urinalysis ordered. Urinalysis shows some contamination but gross 4+ bacteria red cells and white cells will treat this empirically with Rocephin while workup is underway. Culture sent. Patient has a significant leukocytosis of 18,000, normal kidney function, CT findings and showing punctate right UVJ stone with mild hydronephrosis. Given the urinary tract infection and white count we discussed the case with the on- call urologist Dr. Tovar who recommended admission for IV antibiotics, continued fluid resuscitation, letting her try to pass the stone naturally rather than sending home with antibiotics at this time. I discussed this with the patient was comfortable with the plan. Discussed the case with the hospitalist who accepted the patient to a hospital bed at this time and p.r.n. medications ordered as well as continued fluids and Rocephin given. Medical Records Attestation: I reviewed the patient's medical records. Lab Data Attestation: I reviewed the patient's lab results. 08/12/25 21:02 08/12/25 21:02 Labs: Lab Results 08/12/25 Range/Units 21:02 WBC 18.0 H (4.5-10.0) K/mm3 RBC 4.21 (4.2-5.4) M/mm3 Hgb 12.9 (12.0-15.0) g/dL Hct 38.8 (37.0-47.0) % MCV 92.2 (80-100) fl MCH 30.6 (26-34) pg MCHC 33.2 (32-36) g/dl RDW 11.7 (11.5-14.5) % Plt Count 289 (150-375) k/mm3 MPV 8.8 (7.4-10.4) fl Immature Gran % (Auto) 0.6 H (0-0.5) % Neut % (Auto) 81.2 H (45.5-73.1) % Lymph % (Auto) 13.5 L (18.3-44.2) % [place] % (Auto) 3.5 (2.6-8.5) % Eos % (Auto) 1.0 (0-4.4) % Baso % (Auto) 0.2 (0.2-1.2) % Lymph # (Auto) 2.43 (0.9-3.2) K/mm3 [place] # (Auto) 0.6 (0.1-0.6) K/mm3 Eos # (Auto) 0.2 (0-0.3) K/mm3 Baso # (Auto) 0.0 (0.0-0.1) K/mm3 Abs Immat Gran (auto) 0.10 H (0.00-0.031) K/mm3 Absolute Neuts (auto) 14.6 H (1.3-6.7) K/mm3 Absolute Nucleated RBC 0.000 (0.0-0.012) K/mm3 Nucleated RBC % 0.0 (0.0-0.2) % Sodium 139 (137-145) mmol/L Potassium 4.0 (3.4-5.0) mmol/L Chloride 109 H (98-107) mmol/L Carbon Dioxide 18 L (22-30) mmol/L Anion Gap 12 (4-12) mmol/L BUN 16 D (7-17) mg/dL Creatinine 1.02 H (0.7-1.0) mg/dL Estim Creat Clear Calc 92 ml/min Estimated GFR > 60 (59 - ) Glucose 113 H (65-110) mg/dL Calcium 9.2 (8.4-10.2) mg/dL Total Bilirubin 0.7 (0.2-1.3) mg/dL AST 23 (14-36) U/L ALT 14 (6-35) U/L Alkaline Phosphatase 74 (38-126) U/L Total Protein 8.6 H (6.3-8.2) g/dL Albumin 4.4 (3.5-5.1) g/dL Urine Color Dark yellow (Yellow) Urine Appearance Turbid H (Clear) Urine pH 7.0 (5.0-9.0) Ur Specific [place] 1.040 H (1.001-1.035) Urine Protein 1+ H (Negative) mg/dL Urine Glucose (UA) Negative (Negative) mg/dL Urine Ketones Trace H (Negative) mg/dL Ur Blood (Man) Negative (Negative) Urine Nitrate Negative (Negative) Urine Bilirubin Negative (Negative) Urine Urobilinogen 1.0 (<2.0) mg/dL Add Ur Microanalysis Reviewed Leukocyte Esterase Rfl 2+ H (Negative) LUDMILA/UL Urine RBC 21-50 H (0-2) /hpf Urine WBC 11-20 H (0-3) /hpf Ur Squamous Epith Cells Many H (Few) /hpf Urine Bacteria 4+ H /hpf Urine Casts 0-2 Urine Test Negative Imaging Data Attestation: I personally reviewed and interpreted this imaging study as follows: My impression: Impressions Abdomen/Pelvis CT 08/12/25 21:48 IMPRESSION: Multiple gallstones are noted. Follow-up ultrasound is recommended. Enlarged left inguinal lymph node measures up to 16.9 mm. There is mild right hydronephrosis secondary to a punctate stone at the UVJ. All CT scans at this facility are performed using low dose modulation techniques as appropriate to perform exam including the following: automated exposure control; use of iterative reconstruction technique; adjustment of the mA and/or kV according to patient size (this includes techniques or standardized protocols for targeted exams where dose is matched to indication/reason for exam). Discharge Plan Discharge Clinical Impression: Hydronephrosis, right, Calculus of ureterovesical junction (UVJ), Urinary tract infection Patient Disposition: Still a Patient Condition: Stable Patient Language: [place] Islander Prescriptions: No Action nifedipine 30 mg tablet extended release 24hr PO hydrocodone-acetaminophen 5-325 mg tablet 1 tablet PO Q4H PRN (Reason: pain) Qty: 25 0RF Follow-up/Referrals: Piedad,MD Esdras [Primary Care Provider, Unknown] Time of Disposition: 22:54
[2025-08-12] MEDS: cefTRIAXone 2 GM in SODIUM CHLORIDE 0.9% IV 100 ML 200 ML IVPB (22:54)
[2025-08-12 23:34] VITALS: BP 144/76; PULSE 86; RESP 17; O2SAT 100
--- NOTE | 2025-08-12 23:34 | PC.NURSE ---
RN assumed care of pt and LR was delayed d/t being paused for CT and Rocephin administration. Resumed last 500ml at this time.
--- NOTE | 2025-08-12 23:52 | ADMGEN ---
This patient, Eladia Grimaldo, was admitted to 2 Medical Room 244-. Patient/family oriented to hospital policies and general routines including ID bracelet, bed and alarms, visiting hours, pain management, procedures, bathroom and other care routines, personal items, smoking policy, room service/diet, and visiting hours. Information on how to activate the Rapid Response Team has been discussed. Patient/Family are encouraged to report perceived risks to care and to ask questions if they do not understand what they are told or what they should do.
[2025-08-13 00:05] VITALS: BP 154/89; PULSE 79; RESP 16; TEMP 36.5; O2SAT 100; BMI 37.3
[2025-08-13] MEDS: LACTATED RINGERS 1,000 ML 125 ML IV CONT ×3 (00:12→16:55)
[2025-08-13 05:46] VITALS: BP 154/95; PULSE 75; RESP 18; TEMP 36.6; O2SAT 100
[2025-08-13] MEDS: KETOROLAC 30 MG/ML VIAL (*BKC) IV PUSH ×2 (05:58→12:15)
--- NOTE | 2025-08-13 06:53 | PM.IMHP ---
H&P: HPI History of Present Illness Date/Time: 08/13/25 06:53 Chief Complaint: flank pain Narrative: 30 year old female with past medical history of hypertension presents to the hospital for right flank pain that developed on 08/12 at approximately 7:30 am while driving to work. She described the pain as a sharp stabbing to the right flank that continued to increase in severity throughout her drive. She arrived to work and states she was unable to stand up straight and developed nausea, sweating and chills. She attempted to take ibuprofen with no relief. She went to an urgent care who stated that her UA was positive for blood and they were concerned about kidney stones. She was told if the pain continued to report to an ER for further evaluation. She states she attempted to go home however pain never improved which prompted her to come to the hospital. She denies any fever. She denies any UTI like symptoms including dysuria, burning, urgency/frequency, odor and hematuria. She denies a history of kidney stones. No known history of gallstones. Denies any RUQ pain or issues with fatty foods. ED workup: CBC with WBC 18, H/H 12.9/38.8, PLT 289. CMP with Na 129, K 4, Cl 109, CO2 18, BUN/Cr 16/1.02 with GFR > 60. Glucose 113. LFT and tot bili WNL. UA concerning for infection. CT abdomen/pelvis: Multiple gallstones are noted. Follow-up ultrasound is recommended. Enlarged left inguinal lymph node measures up to 16.9 mm. There is mild right hydronephrosis secondary to a punctate stone at the UVJ. ED doctor discussed with on-call urologist Dr. Tovar who recommended admission for IV antibiotics, continued fluid resuscitation, letting her try to pass the stone naturally Review of Systems Review of Systems: All systems reviewed & are unremarkable except as noted in HPI and below PMFSH Past Medical History Medical History HTN (hypertension) Morbid obesity Surgical History Surgical History (Updated 08/13/25 @ 13:44 by Ava Burns PA-C) History of delivery History of appendectomy Family History Family History Mother Hypertension Grandparent Diabetes mellitus Social History Social History (Updated 08/13/25 @ 13:45 by Ava Burns PA-C) Social History: Lives at home with and child. Has 2 cats. Smoking status: Never smoker Alcohol intake: current Alcohol use details: social drinker, < 1 drink per week Substance use: never Substance use type: does not use Lack of Transportation: No Lack of Food: Never True Current Housing: I Have Housing Concerned About Future Housing: No Difficulty Paying Gas/Electric Bills: No Difficulty Paying for Meds: No Currently Unemployed: No Education: Bachelor's Degree Difficulty w/ Childcare or Family Care: No Spiritual care concerns: No Meds Home Medications and Allergies Home Medications ?Medication ?Instructions ?Recorded ?Confirmed ?Type losartan 100 0.5 tablet PO DAILY 08/12/25 08/12/25 History mg-hydrochlorothiazide 12.5 mg tablet topiramate 100 mg tablet 100 mg PO Q12H 08/12/25 08/12/25 History Allergies Allergy/AdvReac Type Severity Reaction Status Date / Time No Known Allergies Allergy Verified 08/12/25 23:57 Vital Signs Vital Signs - 24 hr 08/12/25 19:16 08/12/25 21:12 08/12/25 23:34 Temperature 98.2 F Pulse Rate 94 86 Respiratory Rate 18 16 17 Blood Pressure 165/94 H 144/76 H Pulse Oximetry 100 99 100 Oxygen Delivery Room Air 08/13/25 00:05 08/13/25 05:46 Temperature 97.7 F 97.8 F Pulse Rate 79 75 Respiratory Rate 16 18 Blood Pressure 154/89 H 154/95 H Pulse Oximetry 100 100 Oxygen Delivery Exam Narrative: AF HR 75 RR 18 SpO2 100 BP 154/95 General: female in no acute respiratory distress who is nontoxic appearing, sitting up in bed. HEENT: Normocephalic. Atraumatic. Extraocular movement intact. Sclera clear and anicteric. No facial asymmetry. Neck: Neck was supple. No dominant adenopathy, thyromegaly or masses. Chest: Lungs are clear to auscultation bilaterally. CV: Heart was regular rate and rhythm. S1-S2. No murmurs, gallops, or rubs. Abd: Abdomen was soft. Nontender. Nondistended. Positive bowel sounds. Slight right CVA tenderness. Ext: No clubbing, cyanosis, or edema. DP pulses bilaterally. Neuro: Patient is alert. Speech is clear. Psych: Normal mood and affect. Patient is pleasant and cooperative. Skin: Warm and dry. No rashes noted. H&P: Results Labs Labs: Short CBC 08/12/25 Range/Units 21:02 WBC 18.0 H (4.5-10.0) K/mm3 Hgb 12.9 (12.0-15.0) g/dL Hct 38.8 (37.0-47.0) % Plt Count 289 (150-375) k/mm3 BMP 08/12/25 21:02 Sodium 139 Potassium 4.0 Chloride 109 H Carbon Dioxide 18 L BUN 16 D Creatinine 1.02 H Glucose 113 H Calcium 9.2 Liver Function 08/12/25 Range/Units 21:02 Total Bilirubin 0.7 (0.2-1.3) mg/dL AST 23 (14-36) U/L ALT 14 (6-35) U/L Alkaline Phosphatase 74 (38-126) U/L Albumin 4.4 (3.5-5.1) g/dL Urine 08/12/25 Range/Units 21:02 Urine Color Dark yellow (Yellow) Urine Appearance Turbid H (Clear) Urine pH 7.0 (5.0-9.0) Ur Specific [place] 1.040 H (1.001-1.035) Urine Protein 1+ H (Negative) mg/dL Urine Glucose (UA) Negative (Negative) mg/dL Assessment and Plan Assessment and plan (1) Hydronephrosis, right: Code(s): N13.30 - Unspecified hydronephrosis Status: Acute Assessment and Plan: Hydronephrosis secondary to stone obstruction CT abdomen/pelvis: There is mild right hydronephrosis secondary to a punctate stone at the UVJ. - Slightly elevated creatinine of 1.02, baseline WNL. Continue to monitor. - LR 125 ml/hr - Strain urine - Avoid nephrotoxic medications - Renally dose medications - Monitor I/O - Urology consulted No plans for stone extraction today as stone is highly likely to pass spontaneously. If she a bad day today or starts to run a fever consider endoscopic stone extraction tomorrow. (2) Urinary tract infection: Code(s): N39.0 - Urinary tract infection, site not specified Status: Acute Assessment and Plan: - UA: turbid appearance with 1+ protein, trace ketones, 2+ leukocytes, 21-50 RBC, 11-20 WBC, 4+ bacteria, and many squamous cells. Possible contaminant given increase squamous cells present. - UC obtained on 08/12: pending - No previous micro to be reviewed - started on rocephin on 08/12 (3) Gallstones: Code(s): K80.20 - Calculus of gallbladder without cholecystitis without obstruction Status: Acute Assessment and Plan: CT abdomen/pelvis: multiple gallstones Denies history of gallstones. Denies ruq pain and tolerates all meals. - Tot bili and LFTs WNL - Lipase WNL (4) HTN (hypertension): Code(s): I10 - Essential (primary) hypertension Status: Acute Assessment and Plan: Chronic, continue home medication - losartan-HCTZ daily - continue to monitor Hospitalist MIPS Advance Care Plan I have confirmed that the patient's Advanced Care Plan is present, code status is documented, or surrogate decision maker is listed in patient medical record.: Yes Medication Reconciliation I have utilized all available resources to obtain, update and review the patients current medications (includes all prescriptions, OTC, herbals, cannabis, and nutritional supplements).: Yes
[2025-08-13 07:50] LABS: Lipase 38 U/L (23-300)
[2025-08-13 08:22] VITALS: PULSE 75; RESP 18; O2SAT 100
--- NOTE | 2025-08-13 08:38 | P.CONUR_ITS ---
Assessment and Plan Assessment and plan (1) Calculus of ureterovesical junction (UVJ): Code(s): N20.1 - Calculus of ureter Status: Acute (2) Hydronephrosis, right: Code(s): N13.30 - Unspecified hydronephrosis Status: Acute (3) Urinary tract infection: Code(s): N39.0 - Urinary tract infection, site not specified Status: Acute Assessment and Plan: * Young lady without history of urolithiasis who appears to have a very tiny stone at her right ureterovesical junction * Possible urinary tract infection although her urine analyze for urinalysis appears contaminated * I will noot make plans for stone extraction today as this tiny stone is highly likely to pass sponteneously. Iif she a bad day today or starts to run a fever we can consider endoscopic stone extraction possibly tomorrow. I think the need for intervention is unlikely Urology Consult Note HPI Date Seen: 08/13/25 Requesting Physician: Leoncio Anderson MD Primary Care Provider: Esdras Herbert, MD Consult Narrative Narrative: Eladia Grimaldo is a 30 year old female without history of urolithiasis developed right flank pain while driving to work yesterday. This is been somewhat intermittent nature and can be associated with nausea. She was seen in urgent care were micro hematuria was noted. Evaluation in the emergency department [facility] with a CT scan shows mild right hydronephrosis with a very tiny punctate stone in her right distal ureter at the ureterovesical junction. This morning she is feeling better. Review of Systems 2 Review of Systems: All systems reviewed & are unremarkable except as noted in HPI and below [facility] Past Medical History Medical History (Updated 08/13/25 @ 07:04 by Ava Burns PA-C) HTN (hypertension) Morbid obesity Surgical History Surgical History History of appendectomy Family History Family History Mother Hypertension Grandparent Diabetes mellitus Social History Social History Smoking status: Never smoker Alcohol intake: current Substance use: never Substance use type: does not use Lack of Transportation: No Lack of Food: Never True Current Housing: I Have Housing Concerned About Future Housing: No Difficulty Paying Gas/Electric Bills: No Difficulty Paying for Meds: No Currently Unemployed: No Education: Bachelor's Degree Difficulty w/ Childcare or Family Care: No Spiritual care concerns: No Meds Home Medications and Allergies Home Medications ?Medication ?Instructions ?Recorded ?Confirmed ?Type losartan 100 0.5 tablet PO DAILY 08/12/25 08/12/25 History mg-hydrochlorothiazide 12.5 mg tablet topiramate 100 mg tablet 100 mg PO Q12H 08/12/2507/29 History Allergies Allergy/AdvReac Type Severity Reaction Status Date / Time No Known Allergies Allergy Verified 08/12/25 23:57 Vital Signs Vital Signs - 24 hr 08/12/25 19:16 08/12/25 21:12 08/12/25 23:34 Temperature 98.2 F Pulse Rate 94 86 Respiratory Rate 18 16 17 Blood Pressure 165/94 H 144/76 H Pulse Oximetry 100 99 100 Oxygen Delivery Room Air 08/13/25 00:05 08/13/25 05:46 Temperature 97.7 F 97.8 F Pulse Rate 79 75 Respiratory Rate 16 18 Blood Pressure 154/89 H 154/95 H Pulse Oximetry 100 100 Oxygen Delivery Exam 2 Const: General: no acute distress Resp: Effort & Inspection: normal respiratory effort GI: Inspection: non-distended GI Palp: No abdominal tenderness and No Guarding due to palpation present (GI) Auscultation: normal bowel sounds Results Labs 08/12/25 21:02 08/12/25 21:02 Labs: Short CBC 08/12/25 Range/Units 21:02 WBC 18.0 H (4.5-10.0) K/mm3 Hgb 12.9 (12.0-15.0) g/dL Hct 38.8 (37.0-47.0) % Plt Count 289 (150-375) k/mm3 BMP 08/12/25 21:02 Sodium 139 Potassium 4.0 Chloride 109 H Carbon Dioxide 18 L BUN 16 D Creatinine 1.02 H Glucose 113 H Calcium 9.2 Liver Function 08/12/25 Range/Units 21:02 Total Bilirubin 0.7 (0.2-1.3) mg/dL AST 23 (14-36) U/L ALT 14 (6-35) U/L Alkaline Phosphatase 74 (38-126) U/L Albumin 4.4 (3.5-5.1) g/dL Urine 08/12/25 Range/Units 21:02 Urine Color Dark yellow (Yellow) Urine Appearance Turbid H (Clear) Urine pH 7.0 (5.0-9.0) Ur Specific [place] 1.040 H (1.001-1.035) Urine Protein 1+ H (Negative) mg/dL Urine Glucose (UA) Negative (Negative) mg/dL
[2025-08-13 13:43] VITALS: BP 153/75; PULSE 79; RESP 18; TEMP 36.8; O2SAT 100
[2025-08-13] MEDS: ACETAMINOPHEN 325 MG TABLET 650 MG PO (16:54)
[2025-08-13] MEDS: TOPIRAMATE 100 MG TABLET PO (20:28)
[2025-08-13 21:03] VITALS: BP 142/79; PULSE 87; RESP 20; TEMP 36.6; O2SAT 99
[2025-08-13] MEDS: cefTRIAXone 1 GM in SODIUM CHLORIDE 0.9% IV 50 ML 100 ML IVPB (22:42)
[2025-08-14 05:24] LABS: Hematocrit 33.4 % (37.0-47.0); Hemoglobin 10.9 g/dL (12.0-15.0); Mean Corpuscular HGB Conc 32.6 g/dl (32-36); Mean Corpuscular Hemoglobin 30.8 pg (26-34); Mean Corpuscular Volume 94.4 fl (80-100); Platelet Count Result 207 k/mm3 (150-375); Red Blood Count 3.54 M/mm3 (4.2-5.4); White Blood Count 10.6 K/mm3 (4.5-10.0)
[2025-08-14 05:42] LABS: Alanine Aminotransferase 10 U/L (6-35); Albumin Level 3.5 g/dL (3.5-5.1); Alkaline Phosphatase 56 U/L (38-126); Anion Gap 8 mmol/L (4-12); Aspartate Amino Transferase 16 U/L (14-36); Bilirubin,Total 0.5 mg/dL (0.2-1.3); Blood Urea Nitrogen 14 mg/dL (7-17); Calcium 8.4 mg/dL (8.4-10.2); Carbon Dioxide 20 mmol/L (22-30); Chloride 112 mmol/L (98-107); Estimated CRCL calculation 113 ml/min; Estimated Glomerular Filt Rate > 60; Glucose 99 mg/dL (65-110); Potassium 3.6 mmol/L (3.4-5.0); Sodium 140 mmol/L (137-145); Total Protein 6.7 g/dL (6.3-8.2)
[2025-08-14 06:00] VITALS: BP 144/73; PULSE 77; RESP 18; TEMP 36.6; O2SAT 98
--- NOTE | 2025-08-14 06:33 | P.PNUR_ITS ---
Progress Note: A&P Assessment and Plan (1) Hydronephrosis, right: Code(s): N13.30 - Unspecified hydronephrosis Status: Acute (2) Calculus of ureterovesical junction (UVJ): Code(s): N20.1 - Calculus of ureter Status: Acute Assessment and Plan: * Patient has been pain-free overnight but has not yet produced a stone. * Will get CT scan abdomen pelvis to confirm that her stone is passed. If not we may consider endoscopic extraction Subjective Subjective Date/Time Seen: 08/14/25 06:33 Interval history: Pain-free overnight but has not produced a stone yet Review of Systems Review of Systems: All systems reviewed & are unremarkable except as noted in HPI and below Exam Const: General: no acute distress Resp: Effort & Inspection: normal respiratory effort GI: Inspection: non-distended GI Palp: No abdominal tenderness and No Guarding due to palpation present (GI) Auscultation: normal bowel sounds Objective Data Vital Signs Vital Signs: Vital Signs - 24 hr 08/13/25 08:22 08/13/25 13:43 08/13/25 20:00 Temperature 98.2 F Pulse Rate 75 79 Respiratory Rate 18 18 Blood Pressure 153/75 H Pulse Oximetry 100 100 Oxygen Delivery Room Air Room Air 08/13/25 21:03 08/14/25 06:00 Temperature 97.9 F 97.9 F Pulse Rate 87 77 Respiratory Rate 20 18 Blood Pressure 142/79 H 144/73 H Pulse Oximetry 99 98 Oxygen Delivery Intake/Output Intake/Output: Intake & Output 08/11/25 08/12/25 08/13/25 08/14/25 23:59 23:59 23:59 23:59 Intake Total 100 2800 1200 Output Total 400 Balance 100 2400 1200 Meds/Results Medications: Active Medications Generic Name Dose Route Start Last Admin Trade Name Freq PRN Reason Stop Dose Admin Acetaminophen 650 mg 08/12/25 22:23 08/13/25 16:54 Acetaminophen 325 Mg Tablet PO 650 mg Q4H PRN Administration Mild Pain (1-3) or Fever Hydrochlorothiazide 12.5 mg 08/14/25 09:00 Hydrochlorothiazide 12.5 Mg Capsule PO QAM JAVIER Hydromorphone HCl 0.5 mg 08/12/25 22:23 Hydromorphone Hcl Inj (*Crx) 1 Mg/Ml Syr IV PUSH Q4H PRN Pain Rated 7-10 Lactated Ringer's 1,000 mls @ 125 mls/hr 08/12/25 22:25 08/14/25 00:55 Lr - Lactated Ringers Iv IV CONT Infused .Q8H JAVIER Infusion Ceftriaxone Sodium 1 gm/ 50 mls @ 100 mls/hr 08/13/25 23:00 08/13/25 22:42 Sodium Chloride IVPB 100 mls/hr Q24H JAVIER Administration Ketorolac Tromethamine 30 mg 08/12/25 22:23 08/13/25 12:15 Ketorolac 30 Mg/Ml Vial (*Bkc) IV PUSH 08/17/25 22:22 30 mg Q6H PRN Administration Pain Rated 4-6 Losartan Potassium 100 mg 08/14/25 09:00 Losartan Potassium 100 Mg Tablet PO DAILY JAVIER Ondansetron HCl 4 mg 08/12/25 22:23 Ondansetron Inj 4 Mg/2 Ml Vial IV PUSH Q4H PRN Nausea Topiramate 100 mg 08/13/25 21:00 08/13/25 20:28 Topiramate 100 Mg Tablet PO 100 mg Q12HR JAVIER Administration Radiology Results: ITS Impressions Abdomen/Pelvis CT 08/12/25 21:48 IMPRESSION: Multiple gallstones are noted. Follow-up ultrasound is recommended. Enlarged left inguinal lymph node measures up to 16.9 mm. There is mild right hydronephrosis secondary to a punctate stone at the UVJ. All CT scans at this facility are performed using low dose modulation techniques as appropriate to perform exam including the following: automated exposure control; use of iterative reconstruction technique; adjustment of the mA and/or kV according to patient size (this includes techniques or standardized protocols for targeted exams where dose is matched to indication/reason for exam). Labs Labs: Laboratory Results - last 24 hr 08/13/25 08/14/25 07:34 05:05 WBC 10.6 H RBC 3.54 L Hgb 10.9 L Hct 33.4 L MCV 94.4 MCH 30.8 MCHC 32.6 RDW 11.7 Plt Count 207 MPV 9.2 Sodium 140 Potassium 3.6 Chloride 112 H Carbon Dioxide 20 L Anion Gap 8 BUN 14 Creatinine 0.81 Estim Creat Clear Calc 113 Estimated GFR > 60 Glucose 99 Calcium 8.4 Total Bilirubin 0.5 AST 16 ALT 10 Alkaline Phosphatase 56 Total Protein 6.7 Albumin 3.5 Lipase 38
--- NOTE | 2025-08-14 07:02 | P.PNIM_ITS ---
Progress Note: A&P Assessment and Plan (1) Hydronephrosis, right: Code(s): N13.30 - Unspecified hydronephrosis Status: Acute Assessment and Plan: Hydronephrosis secondary to stone obstruction CT abdomen/pelvis: There is mild right hydronephrosis secondary to a punctate stone at the UVJ. - Slightly elevated creatinine of 1.02, baseline WNL. Continue to monitor. - LR 125 ml/hr - Strain urine - Avoid nephrotoxic medications - Renally dose medications - Monitor I/O - Urology consulted No plans for stone extraction today as stone is highly likely to pass spontaneously. If she a bad day today or starts to run a fever consider endoscopic stone extraction tomorrow. (2) Urinary tract infection: Code(s): N39.0 - Urinary tract infection, site not specified Status: Acute Assessment and Plan: - UA: turbid appearance with 1+ protein, trace ketones, 2+ leukocytes, 21-50 RBC, 11-20 WBC, 4+ bacteria, and many squamous cells. Possible contaminant given increase squamous cells present. - UC obtained on 08/12: pending - No previous micro to be reviewed - started on rocephin on 08/12 (3) Gallstones: Code(s): K80.20 - Calculus of gallbladder without cholecystitis without obstruction Status: Acute Assessment and Plan: CT abdomen/pelvis: multiple gallstones Denies history of gallstones. Denies ruq pain and tolerates all meals. - Tot bili and LFTs WNL - Lipase WNL (4) HTN (hypertension): Code(s): I10 - Essential (primary) hypertension Status: Acute Assessment and Plan: Chronic, continue home medication - losartan-HCTZ daily - continue to monitor Subjective Date/time seen: 08/14/25 07:02 Interval history: 30 year old female with past medical history of hypertension presents to the hospital for right flank pain that developed on 08/12. Review of Systems Review of Systems: All systems reviewed & are unremarkable except as noted in HPI and below Exam Narrative: AF HR General: female in no acute respiratory distress who is nontoxic appearing, sitting up in bed. HEENT: Normocephalic. Atraumatic. Extraocular movement intact. Sclera clear and anicteric. No facial asymmetry. Neck: Neck was supple. No dominant adenopathy, thyromegaly or masses. Chest: Lungs are clear to auscultation bilaterally. CV: Heart was regular rate and rhythm. S1-S2. No murmurs, gallops, or rubs. Abd: Abdomen was soft. Nontender. Nondistended. Positive bowel sounds. Slight right CVA tenderness. Ext: No clubbing, cyanosis, or edema. DP pulses bilaterally. Neuro: Patient is alert. Speech is clear. Psych: Normal mood and affect. Patient is pleasant and cooperative. Skin: Warm and dry. No rashes noted. Objective Data Vital Signs Vital Signs: Vital Signs - 24 hr 08/13/25 08:22 08/13/25 13:43 08/13/25 20:00 Temperature 98.2 F Pulse Rate 75 79 Respiratory Rate 18 18 Blood Pressure 153/75 H Pulse Oximetry 100 100 Oxygen Delivery Room Air Room Air 08/13/25 21:03 08/14/25 06:00 Temperature 97.9 F 97.9 F Pulse Rate 87 77 Respiratory Rate 20 18 Blood Pressure 142/79 H 144/73 H Pulse Oximetry 99 98 Oxygen Delivery Intake/Output Intake/Output: Intake & Output 08/11/25 08/12/25 08/13/25 08/14/25 23:59 23:59 23:59 23:59 Intake Total 100 2800 1200 Output Total 400 Balance 100 2400 1200 Meds/Results Medications: Active Medications Generic Name Dose Route Start Last Admin Trade Name Freq PRN Reason Stop Dose Admin Acetaminophen 650 mg 08/12/25 22:23 08/13/25 16:54 Acetaminophen 325 Mg Tablet PO 650 mg Q4H PRN Administration Mild Pain (1-3) or Fever Hydrochlorothiazide 12.5 mg 08/14/25 09:00 Hydrochlorothiazide 12.5 Mg Capsule PO QAM JAVIER Hydromorphone HCl 0.5 mg 08/12/25 22:23 Hydromorphone Hcl Inj (*Crx) 1 Mg/Ml Syr IV PUSH Q4H PRN Pain Rated 7-10 Lactated Ringer's 1,000 mls @ 125 mls/hr 08/12/25 22:25 08/14/25 00:55 Lr - Lactated Ringers Iv IV CONT Infused .Q8H JAVIER Infusion Ceftriaxone Sodium 1 gm/ 50 mls @ 100 mls/hr 08/13/25 23:00 08/13/25 22:42 Sodium Chloride IVPB 100 mls/hr Q24H JAVIER Administration Ketorolac Tromethamine 30 mg 08/12/25 22:23 08/13/25 12:15 Ketorolac 30 Mg/Ml Vial (*Bkc) IV PUSH 08/17/25 22:22 30 mg Q6H PRN Administration Pain Rated 4-6 Losartan Potassium 100 mg 08/14/25 09:00 Losartan Potassium 100 Mg Tablet PO DAILY [facility] Ondansetron HCl 4 mg 08/12/25 22:23 Ondansetron Inj 4 Mg/2 Ml Vial IV PUSH Q4H PRN Nausea Topiramate 100 mg 08/13/25 21:00 08/13/25 20:28 Topiramate 100 Mg Tablet PO 100 mg Q12HR JAVIER Administration Labs Labs: Laboratory Results - last 24 hr 08/13/25 08/14/25 07:34 05:05 WBC 10.6 H RBC 3.54 L Hgb 10.9 L Hct 33.4 L MCV 94.4 MCH 30.8 MCHC 32.6 RDW 11.7 Plt Count 207 MPV 9.2 Sodium 140 Potassium 3.6 Chloride 112 H Carbon Dioxide 20 L Anion Gap 8 BUN 14 Creatinine 0.81 Estim Creat Clear Calc 113 Estimated GFR > 60 Glucose 99 Calcium 8.4 Total Bilirubin 0.5 AST 16 ALT 10 Alkaline Phosphatase 56 Total Protein 6.7 Albumin 3.5 Lipase 38
[2025-08-14 09:51] VITALS: BP 158/94
[2025-08-14] MEDS: TOPIRAMATE 100 MG TABLET PO (09:52)
[2025-08-14] MEDS: LOSARTAN POTASSIUM 100 MG TABLET PO (09:52)
--- NOTE | 2025-08-14 12:38 | P.DS_ITS ---
DS: Admitting Diagnosis Discharge Date 08/14/2025 Admitting Diagnosis hydronephrosis uti gallstones htn DS: Discharge Diagnosis Discharge Diagnosis (1) Hydronephrosis, right: Code(s): N13.30 - Unspecified hydronephrosis Status: Acute (2) Urinary tract infection: Code(s): N39.0 - Urinary tract infection, site not specified Status: Acute (3) Gallstones: Code(s): K80.20 - Calculus of gallbladder without cholecystitis without obstruction Status: Acute (4) HTN (hypertension): Code(s): I10 - Essential (primary) hypertension Status: Acute DS: Summary Hospital Course Reason for hospitalization: hydronephrosis uti gallstones htn Hospital Course: 30 year old female with past medical history of hypertension presents to the hospital for right flank pain that developed on 08/12. CT abdomen/pelvis showed mild right hydronephrosis secondary to a punctate stone at the UVJ. Started on IV fluids and analgesics. Urology consulted. No plans for stone extraction during admission. Repeat CT showed the stone had passed. Patient able to discharge from urology standpoint with follow up in 3-4 weeks. UA on admission concerning for possible infection. Patient denied any UTI like symptoms however given stone was treated for UTI with IV antibiotics. Urine culture pending. Given that the urine culture had not returned, had an in-depth conversation with patient in terms of discharge. Discussed with patient that if the urine culture comes back and shows resistance to the oral antibiotic that they were discharged on they will either receive a phone call and a new oral antibiotic will be sent to the pharmacy or they will have to come back to the hospital for IV antibiotics if no oral option is available. Patient stated understanding and was agreeable with discharge at this time. Transitioned to oral antibiotics to complete the course. CT abdomen/pelvis showed multiple gallstones. Lipase, Tot bili and LFTs WNL. Patient asymptomatic. No intervention required at this time. Patient informed to continue follow up with PCP. Patient had no complaints at time of discharge denying chest pain, shortness of breath, palpitations, nausea/vomiting, and abdominal pain. Patient discharged home in a stable condition. She is to follow up with her PCP in 1 week and urology as scheduled. Status at Discharge Functional status at discharge: independent ambulation Time Spent with Patient Time attestation: Total time spent providing and/or coordinating discharge services: Time spent: Greater than 30 minutes Exam Narrative: AF HR 77 RR 18 Spo2 98 BP 144/73 General: female in no acute respiratory distress who is nontoxic appearing, sitting up in bed. HEENT: Normocephalic. Atraumatic. Extraocular movement intact. Sclera clear and anicteric. No facial asymmetry. Chest: Lungs are clear to auscultation bilaterally. CV: Heart was regular rate and rhythm. Abd: Abdomen was soft. Nontender. Nondistended. Positive bowel sounds. Ext: No clubbing, cyanosis, or edema. DP pulses bilaterally. Neuro: Patient is alert. Speech is clear. DS: Data Data Completed and Pending Completed studies during hospitalization: abdomen/pelvis ct abdomen/pelvis ct Labs on day of discharge: Labs from last 24 hours 08/14/25 05:05 WBC 10.6 H RBC 3.54 L Hgb 10.9 L Hct 33.4 L MCV 94.4 MCH 30.8 MCHC 32.6 RDW 11.7 Plt Count 207 MPV 9.2 Sodium 140 Potassium 3.6 Chloride 112 H Carbon Dioxide 20 L Anion Gap 8 BUN 14 Creatinine 0.81 Estim Creat Clear Calc 113 Estimated GFR > 60 Glucose 99 Calcium 8.4 Total Bilirubin 0.5 AST 16 ALT 10 Alkaline Phosphatase 56 Total Protein 6.7 Albumin 3.5 Discharge Plan Discharge Attending physician on discharge: Ammon Hu Consulting providers: Ava Burns; Ramon Dejesus Discharging Clinician: Ava Burns Anticipated Discharge Date/Time: 08/14/25 12:29 Patient Disposition: Home Activity: as tolerated Diet: as tolerated Discharge Instructions: Discharge disposition: Patient admitted to the hospital for a kidney stone and UTI Evaluated by urology Stone passed on its own Take all medications as prescribed even if feeling better Augmentin twice a day Attached is information on this medication Your urine culture has not returned: If the urine culture comes back and shows resistance to the oral antibiotic that you were discharged on you will either receive a phone call and a new oral antibiotic will be sent to the pharmacy or you will have to come back to the hospital for IV antibiotics if no oral option is available. Eat well balanced meals and stay hydrated Keep active to remain strong Good marvel Care every 2 hours Trend urine output Follow up with urology in 3-4 weeks Monitor blood pressures Take caution while standing, rising, or moving Change positions slowly taking a break between each position change If you standing feel dizzy sit back down and take a break Encouraged to continue with yearly vaccinations Return to the emergency department if he developed sudden shortness of breath, chest pain, nausea, vomiting, upset stomach or intractable diarrhea Return to the emergency department if you develop fever greater than 100.5 Follow-up with the primary care physician within 1-2 weeks Thank you for [facility] for your healthcare needs Patient Instructions: Antibiotic Form, Amoxicillin/Clavulanate Potassium (By mouth), Kidney Stones (DC) Patient Language: Greek Stand Alone Forms: General Discharge Information Follow-up/Referrals: PiedadEsdras MD [Primary Care Provider, Unknown] - 1 Week Ramon Dejesus MD [Physician, Urology] - 3 Weeks Discharge Medications: New amoxicillin-pot clavulanate 875-125 mg tablet 1 tablet PO Q12H Qty: 10 0RF Continued losartan-hydrochlorothiazide 100-12.5 mg tablet 0.5 tablet PO DAILY topiramate 100 mg tablet 100 mg PO Q12H Date of admission: 08/12/25 22:23 Primary Care Provider: SammyEsdras Admitting Provider: Leoncio Anderson Attending physician on admission: Leoncio Anderson Condition: Stable Hospitalist MIPS Heart Failure (Exclusion) Patient has history of Heart Transplant or Left Ventricular Assistive Device?: No IF YES, STOP HERE Heart Failure (Qualifier) Patient has current or prior documentation of LVEF less than or equal to 40%, or mod/servere depressed LVSF?: No IF NO, STOP HERE
[2025-08-14 13:26] VITALS: BP 147/74; PULSE 83; RESP 18; TEMP 36.4; O2SAT 100
--- NOTE | 2025-08-17 08:18 | PC.NURSE ---
Urine cx shows growth of normal urogenital june.
== END 2025-08-14 14:21 | disposition home or self-care (01) ==
LOC: ANHED 22:54 → ANH2MED 08-13 06:49 → ANH3MEDSUR 08-17 06:58
PROVIDERS: Emergency Medicine; Student in an Organized Health Care Education/Training Program; Admitting Provider Family Medicine; Emergency Provider Student in an Organized Health Care Education/Training Program; PCP Internal Medicine; Visit Provider Internal Medicine
DX: N13.30 Unspecified hydronephrosis (principal); N20.1 Calculus of ureter; N39.0 Urinary tract infection, site not specified; K80.20 Calculus of gallbladder without cholecystitis without obstruction; D72.829 Elevated white blood cell count, unspecified; I10 Essential (primary) hypertension; Z79.83 Long term (current) use of bisphosphonates; Z90.49 Acquired absence of other specified parts of digestive tract; Z83.3 Family history of diabetes mellitus; Z82.49 Family history of ischemic heart disease and other diseases of the circulatory system
CPT/HCPCS: 36415; 74176; 80053; 81001; 81025; 83690; 85025; 85027; 87086; 96361; 96365; 96374; 96375; 96376; 99285; A9270; G0378; J0696; J1885; J2270; J7120